=== PATIENT | male | born 1945 | race Caucasian/White ===

== ENCOUNTER 2020-01-27 15:02 | Emergency (ER) | payer OTHER ==
--- OUTSIDE RECORDS SUMMARY | 2020-01-27 15:09 | XMS REPORT ---
:1945 Author Organization eClinicalWorks Care Team Providers Name Role Phone NanceMau Provider Role Unavailable Allergies, Adverse Reactions, Alerts Substance Reaction Event Type N.K.D.A. 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 Problem Constipation, unspecified K59.00 Active constipation type Problem Noncompliance with dietary Z91.11 Active restriction Problem H/O stroke without residual deficits Z86.73 Active Problem Obstructive sleep apnea G47.33 Active Problem Medicare annual wellness visit, Z00.00 Active initial Problem 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 Active Problem Nocturia R35.1 Active Problem RLS (restless legs syndrome) G25.81 Active Assessment Acute non-recurrent maxillary J01.00 Active sinusitis Problem Prediabetes R73.09 Active Problem Benign essential HTN I10 Active Medications Medication Code Code Instructions Start End Status Dosage System Date Date Simvastatin ND 58668562244 40 MG Orally Active 1 tablet Once a day in the evening Losartan ND 38698514185 100 Orally Once Active 1 tablet Potassium a day Requip ND 50437257201 5 MG Orally Active 1 tablet Twice a day Levothyroxine ND 89850205635 88 MCG Orally Active 1 tablet Sodium Once a day on an empty stomach in the morning Zoloft ND 23644417283 100 MG Orally Active 1 tablet Once a day Amoxicillin-Pot ND 58848737495 875-125 MG Sep 23, Oct 03, Active 1 tablet Clavulanate Orally every 12 2019 2019 hrs Celebrex ND 85658157422 200 MG Orally Active 1 capsule Once a day with food Losartan ND 62306507869 100 MG Orally Active 1 tablet Potassium Once a day Results No Known Results Summary Purpose eClinicalWorks Submission
--- OUTSIDE RECORDS SUMMARY | 2020-01-27 15:09 | XMS REPORT ---
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 41287277130 250 MG Orally Oct 04, Oct 09, Active 2 tablet Z-Gelacio Once a day 2018 2018 on the first day, then 1 tablet daily for 4 days Results No Known Results Summary Purpose eClinicalWorks Submission
--- OUTSIDE RECORDS SUMMARY | 2020-01-27 15:10 | XMS REPORT ---
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
--- OUTSIDE RECORDS SUMMARY | 2020-01-27 15:10 | XMS REPORT ---
:1945 Author Organization eClinicalWorks Care Team Providers Name Role Phone NanceMau Provider Role Unavailable Allergies, Adverse Reactions, Alerts Substance Reaction Event Type N.K.D.A. 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 Problem Constipation, unspecified K59.00 Active constipation type Assessment Prediabetes R73.09 Active Assessment H/O stroke without residual deficits Z86.73 Active Problem Noncompliance with dietary Z91.11 Active restriction Assessment RLS (restless legs syndrome) G25.81 Active Problem H/O stroke without residual deficits Z86.73 Active Problem Obstructive sleep apnea G47.33 Active Problem Medicare annual wellness visit, Z00.00 Active initial Problem 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 Active Assessment Hyperlipidemia, mixed E78.2 Active Assessment Hypothyroidism E03.9 Active Assessment Anxiety F41.9 Active Assessment Obstructive sleep apnea G47.33 Active Problem Nocturia R35.1 Active Problem RLS (restless legs syndrome) G25.81 Active Assessment Benign essential HTN I10 Active Medications Medication Code Code Instructions Start End Status Dosage System Date Date Zoloft ND 03405782135 100 MG Orally Active 1 tablet Once a day Requip ND 50649158564 5 MG Orally Active 1 tablet Twice a day Simvastatin ND 83726742557 40 MG Orally Active 1 tablet Once a day in the evening Levothyroxine ND 80689411119 88 MCG Orally Active 1 tablet Sodium Once a day on an empty stomach in the morning Losartan [facility] 09571765980 100 MG Orally Active 1 tablet Potassium Once a day Celebrex [facility] 80468086366 200 MG Orally Active 1 capsule Once a day with food Results No Known Results Summary Purpose eClinicalWorks Submission
--- NOTE | 2020-01-27 16:29 | ER ---
Nurse's Notes [facility] Name: Brijesh Reveles Age: 74 yrs Sex: Male : 1945 Arrival Date: 01/27/2020 Time: 15:05 Bed 4 Private MD: Mau Nance Diagnosis: Toxic effect of venom of bees, accidental (unintentional) Presentation: 01/26 15:15 Chief complaint: Patient states: Bee sting on L upper lip about 30 minutes ago. ca1 Coronavirus screen: The patient has NOT traveled to [place] in the past 14 days. The patient has NOT had contact with known and/or suspected case of Coronavirus. Ebola Screen: Patient negative for fever greater than or equal to 101.5 degrees Fahrenheit, and additional compatible Ebola Virus Disease symptoms Patient denies exposure to infectious person. Patient denies travel to an Ebola-affected area in the 21 days before illness onset. No symptoms or risks identified at this time. Initial Sepsis Screen: Does the patient meet any 2 criteria? No. Patient's initial sepsis screen is negative. Does the patient have a suspected source of infection? Yes:. Risk Assessment: Do you want to hurt yourself or someone else? Patient reports no desire to harm self or others. 15:15 Method Of Arrival: Ambulatory ca1 15:15 Acuity: DIVYA 4 ca1 15:20 Onset: The symptoms/episode began/occurred acutely. Anaphylaxis evaluation, no signs or bp symptoms of anaphylaxis were noted. Triage Assessment: 15:19 General: Appears in no apparent distress. comfortable, Behavior is calm, cooperative, ca1 appropriate for age. Respiratory: Airway is patent Respiratory effort is even, unlabored, Respiratory pattern is regular, symmetrical. Historical: - Allergies: 15:19 No Known Allergies; ca1 - Home Meds: 15:19 Celebrex 200 mg Oral cap 1 cap once daily [Active]; levothyroxine 75 mcg tab 1 tab once ca1 daily [Active]; losartan 100 mg Oral tab 1 tab once daily [Active]; ropinirole 5 mg Oral tab 1 tab twice a day [Active]; simvastatin 40 mg Oral tab 1 tab once daily [Active]; Zoloft 100 mg Oral tab 1 tab once daily [Active]; - PMHx: 15:19 ADD/ADHD; Arthritis; Hyperlipidemia; Hypertension; Hypothyroidism; Depression; ca1 - PSHx: 15:19 hip Replacement L; ca1 - Immunization history:: Adult Immunizations up to date, Last tetanus immunization: up to date Pneumococcal vaccine is up to date, Flu vaccine is up to date. - Social history:: Smoking status: Patient denies any tobacco usage or history of. Screenin:20 Abuse screen: Denies threats or abuse. Denies injuries from another. Nutritional bp screening: No deficits noted. Tuberculosis screening: No symptoms or risk factors identified. Fall Risk None identified. Assessment: 15:19 General: SEE TRIAGE NOTE. Pain: Complains of pain in upper lip. Respiratory: Airway is bp patent Respiratory effort is even, unlabored, Respiratory pattern is regular, symmetrical, Breath sounds are clear bilaterally. 16:45 Reassessment: PT D/C HOME AMBULATORY WITH FAMILY, DX WITH INSECT BITE. bp Vital Signs: 15:15 BP 149 / 68; Pulse 89; Resp 17 S; Temp 97.1(O); Pulse Ox 96% on R/A; Weight 97.52 kg ca1 (R); Height 6 ft. 3 in. (190.50 cm) (R); 16:22 BP 145 / 91; Pulse 86; Resp 16; Pulse Ox 95% ; bp 16:45 BP 132 / 85; Pulse 85; Resp 16; Temp 98; Pulse Ox 96% ; bp 15:15 Body Mass Index 26.87 (97.52 kg, 190.50 cm) ca1 ED Course: 15:05 Patient arrived in ED. mr 15:05 Mau Nance DO is Private Physician. mr 15:17 Triage completed. ca1 15:19 Arm band placed on right wrist. ca1 15:20 Patient has correct armband on for positive identification. Bed in low position. Call bp light in reach. Side rails up X2. Adult w/ patient. 15:51 Ki Garcia MD is Attending Physician. tw4 16:01 Devonte Gagnon, ISMAEL is Primary Nurse. bp 16:27 Mau Nance DO is Referral Physician. tw4 16:46 No provider procedures requiring assistance completed. Patient did not have IV access bp during this emergency room visit. Administered Medications: No medications were administered Outcome: 16:28 Discharge ordered by . tw4 16:46 Discharged to home ambulatory, with family. bp 16:46 Condition: stable 16:46 Discharge instructions given to patient, Instructed on discharge instructions, follow up and referral plans. medication usage, Demonstrated understanding of instructions, follow-up care, medications, Prescriptions given X 1. 16:47 Patient left the ED. bp Signatures: Mitali Sales Brian, RN RN Ki Burkett MD MD tw4 Summer Haley RN RN ca1
[2020-01-27 18:37] VITALS: BP 132/85; TEMP 98; O2SAT 96
--- NOTE | 2020-01-28 16:57 | EDPHYS ---
Physician Documentation [facility] Name: Brijesh Reveles Age: 74 yrs Sex: Male : 1945 Arrival Date: 01/27/2020 Time: 15:05 Bed 4 Private MD: Goyo [facility] ED Physician Ki Garcia HPI: 01/26 19:39 This 74 yrs old Male presents to ER via Ambulatory with complaints of Bee tw4 Sting. 19:39 The patient was bitten on the upper [place] border. Onset: The symptoms/episode tw4 began/occurred just prior to arrival, today. Animal information: Patient/Caregiver unable to provide information related to the animal. Severity of symptoms: At their worst the symptoms were mild, in the emergency department the symptoms are unchanged. The patient has not experienced similar symptoms in the past. Historical: - Allergies: 15:19 No Known Allergies; ca1 - Home Meds: 15:19 Celebrex 200 mg Oral cap 1 cap once daily [Active]; levothyroxine 75 mcg tab 1 tab once ca1 daily [Active]; losartan 100 mg Oral tab 1 tab once daily [Active]; ropinirole 5 mg Oral tab 1 tab twice a day [Active]; simvastatin 40 mg Oral tab 1 tab once daily [Active]; Zoloft 100 mg Oral tab 1 tab once daily [Active]; - PMHx: 15:19 ADD/ADHD; Arthritis; Hyperlipidemia; Hypertension; Hypothyroidism; Depression; ca1 - PSHx: 15:19 hip Replacement L; ca1 - Immunization history:: Adult Immunizations up to date, Last tetanus immunization: up to date Pneumococcal vaccine is up to date, Flu vaccine is up to date. - Social history:: Smoking status: Patient denies any tobacco usage or history of. ROS: 19:39 Constitutional: Negative for fever, chills, and weight loss, Eyes: Negative for injury, tw4 pain, redness, and discharge. Exam: 19:45 Constitutional: This is a well developed, well nourished patient who is awake, alert, tw4 and in no acute distress. Head/Face: Normocephalic, atraumatic. Chest/axilla: Normal chest wall appearance and motion. Nontender with no deformity. No lesions are appreciated. Cardiovascular: Regular rate and rhythm with a normal S1 and S2. No gallops, murmurs, or rubs. Normal PMI, no JVD. No pulse deficits. Respiratory: Lungs have equal breath sounds bilaterally, clear to auscultation and percussion. No rales, rhonchi or wheezes noted. No increased work of breathing, no retractions or nasal flaring. Abdomen/GI: Soft, non-tender, with normal bowel sounds. No distension or tympany. No guarding or rebound. No evidence of tenderness throughout. Back: No spinal tenderness. No costovertebral tenderness. Full range of motion. 19:45 Musculoskeletal/extremity: 19:45 Skin: injury, bite(s), superficial, of the upper [place] border. Vital Signs: 15:15 BP 149 / 68; Pulse 89; Resp 17 S; Temp 97.1(O); Pulse Ox 96% on R/A; Weight 97.52 kg ca1 (R); Height 6 ft. 3 in. (190.50 cm) (R); 16:22 BP 145 / 91; Pulse 86; Resp 16; Pulse Ox 95% ; bp 16:45 BP 132 / 85; Pulse 85; Resp 16; Temp 98; Pulse Ox 96% ; bp 15:15 Body Mass Index 26.87 (97.52 kg, 190.50 cm) ca1 MDM: 15:51 Patient medically screened. tw4 19:47 Differential diagnosis: superficial laceration, tendon injury. Data reviewed: vital tw4 signs, nurses notes. Data interpreted: Pulse oximetry: Interpretation: normal. Test interpretation: by ED physician or midlevel provider: ECG. Counseling: I had a detailed discussion with the patient and/or guardian regarding: the historical points, exam findings, and any diagnostic results supporting the discharge/admit diagnosis. Special discussion: I discussed with the patient/guardian in detail that at this point there is no indication for admission to the hospital. It is understood, however, that if the symptoms persist or worsen the patient needs to return immediately for re-evaluation. 19:48 ED course: mild swelling of upper lip, no oropharyngeal swelling. tw4 Administered Medications: No medications were administered Disposition: 01/27/20 16:28 Discharged to Home. Impression: Toxic effect of venom of bees, accidental (unintentional). - Condition is Stable. - Discharge Instructions: Insect Bite. - Prescriptions for Medrol (Gelacio) 4 mg Oral Tablets, Dose Pack - take 1 tablet by ORAL route as directed - follow package instructions; 1 packet. - Medication Reconciliation Form, Thank You Letter, Antibiotic Education, Prescription Opioid Use form. - Follow up: Mau Nance DO; When: Upon discharge from the Emergency Department; Reason: Recheck today's complaints, Continuance of care, Re-evaluation by your physician. - Problem is new. - Symptoms have improved. Signatures: Devonte Gagnon RN RN Ki Burkett MD MD tw4 Summer Haley RN RN ca1 Corrections: (The following items were deleted from the chart) 16:47 16:28 01/27/2020 16:28 Discharged to Home. Impression: Toxic effect of venom of bees, bp accidental (unintentional). Condition is Stable. Forms are Medication Reconciliation Form, Thank You Letter, Antibiotic Education, Prescription Opioid Use. Follow up: Mau Nance; When: Upon discharge from the Emergency Department; Reason: Recheck today's complaints, Continuance of care, Re-evaluation by your physician. Problem is new. Symptoms have improved. tw4
== END 2020-01-27 16:47 | disposition home or self-care (01) ==
LOC: ER 15:02
DX: S00.561A Insect bite (nonvenomous) of lip, initial encounter (principal); T63.441A Toxic effect of venom of bees, accidental (unintentional), initial encounter; Y92.9 Unspecified place or not applicable; I10 Essential (primary) hypertension; E03.9 Hypothyroidism, unspecified; E78.5 Hyperlipidemia, unspecified; F32.9 Major depressive disorder, single episode, unspecified
CPT/HCPCS: 99282

== ENCOUNTER 2022-02-23 06:25 | Observation (INO) | payer OTHER ==
[2022-02-18 11:43] LABS: Absolute Lymphocytes (CBC) 2.3 K/uL (0.7-4.9); Hematocrit 40.7 % (39.6-49.0); Lymphocytes % 26.5 % (15.3-44.8); MPV 8.7 fL (7.6-11.3); RBC Red Blood Cell Count 4.54 M/uL (4.33-5.43)
[2022-02-18 11:48] LABS: Protime INR 0.96
--- NOTE | 2022-02-18 11:49 | RAD REPORT ---
EXAM DESCRIPTION: Khang Shields (2 Views)02/18/2022 11:06 am CLINICAL HISTORY: Preop for knee surgery/hypertension COMPARISON: 2017 FINDINGS: The lungs appear clear of acute infiltrate. The heart is normal size IMPRESSION: No acute abnormalities displayed
[2022-02-23] MEDS ORDERED: MIDAZOLAM HCL 2 MG/2 ML INJ ONE (06:45)
[2022-02-23] MEDS ORDERED: LIDOCAINE 1% MPF 5 ML VIAL ONE (06:45)
[2022-02-23] MEDS ORDERED: FENTANYL CITR 100 MCG/2 ML ONE (06:45)
[2022-02-23] MEDS ORDERED: BUPIVACAINE 0.25% PF 10 ML VIAL ONE (06:45)
[2022-02-23] MEDS ORDERED: SODIUM BICARB 50 MEQ/50ML VIAL ONE (06:45)
[2022-02-23] MEDS ORDERED: dexAMETHasone 10 MG/ML VIAL ONE ×2 (06:45→08:05)
[2022-02-23] MEDS ORDERED: Ringers Lactate 1,000 ML IV ONE ×2 (06:48→08:58)
[2022-02-23] MEDS ORDERED: CEFAZOLIN/SWI 2gm 2 GM/20 ML SYR ONE (06:48)
[2022-02-23] MEDS ORDERED: GABAPENTIN 100 MG CAP ONE (07:03)
[2022-02-23] MEDS ORDERED: CELECOXIB 100 MG CAPSULE ONE ×2 (07:03→07:05)
[2022-02-23] MEDS ORDERED: SCOPOLAMINE HYDROBROMIDE PATCH TD ONE (07:03)
[2022-02-23] MEDS ORDERED: Oxycodone HCl/Acetaminophen 1 TAB TAB ONE (07:04)
[2022-02-23] MEDS ORDERED: ACETAMINOPHEN 500 MG TAB ONE (07:04)
[2022-02-23] MEDS ORDERED: ONDANSETRON 4 MG/2 ML VIAL ONE (07:11)
[2022-02-23] MEDS ORDERED: TRANEXAMIC ACID 1,000 MG in NA CHLORIDE 0.9% 50 ML IV SCH (08:00)
[2022-02-23] MEDS ORDERED: HYDROMORPHONE HCL 1 MG/ML INJ ONE (08:01)
[2022-02-23] MEDS ORDERED: KETAMINE HCL 500 MG/5 ML VIAL ONE (08:05)
[2022-02-23] MEDS ORDERED: LIDOCAINE 2% MPF 5 ML VIAL ONE (08:05)
[2022-02-23] MEDS ORDERED: KETOROLAC 30 MG/ML INJ ONE (08:05)
[2022-02-23] MEDS ORDERED: propofoL 200 MG/20 ML VIAL IV ONE ×2 (08:05→09:08)
[2022-02-23] MEDS ORDERED: EPHEDRINE SULF 50 MG/ML VIAL ONE (09:15)
[2022-02-23] MEDS ORDERED: Phenylephrine HCl 10 MG/ML 1 ML VIAL ONE (10:07)
[2022-02-23] MEDS ORDERED: ONDANSETRON 4 MG/2 ML VIAL IV PRN (11:25)
[2022-02-23] MEDS ORDERED: DOCUSATE NA 100 MG CAP PO PRN (11:25)
--- NOTE | 2022-02-23 11:25 | P.BOP ---
Preoperative diagnosis: left knee osteoarthritis Postoperative diagnosis: same Primary procedure: left total knee arthroplasty Mud Worker: NONE,NONE Estimated blood loss: 30 cc Specimen: left knee bone remnants Findings: see dictation Anesthesia: General Complications: None Drain(s): Urinary catheter Implants: Mike Persona 12 PS femur, G tibia tray, 35 patella, 10 mm PS poly Fluids & blood products: per anesthesia record; TT: 99 mins @ 300 mmHg Transferred to: Recovery Room Condition: Good
[2022-02-23] MEDS ORDERED: NA CHLORIDE 0.9% 1,000 ML ONE (11:40)
--- OUTSIDE RECORDS SUMMARY | 2022-02-23 12:09 | XMS REPORT | Continuity of Care Document ---
:1945 Author Organization [facility] t Address [address] [place] [address] Care Team Providers Name Role Phone Emil Nance Attending Clinician Unavailable Problems This patient has no known problems. Allergies, Adverse Reactions, Alerts This patient has no known allergies or adverse reactions. Medications Ordered Filled Start Stop Current Ordering Indication Dosage Frequency Signature Comments Components Source Medication Medication Date Date Medication? Clinician (SIG) Name Name Nasacort Nasacort Yes Mau [address] [facility] Allergy Allergy 07-28 Nance each [facility] 24[facility]:00: nostril [facility] Zoloft Zoloft Yes Mau [facility] Requip Requip Yes Mau 1 tablet [facility] Simvastatin Simvastatin Yes Mau [address] [facility] Nance in the [facility] evening [facility] Levothyroxi Levothyroxi Yes Mau [address] [facility] ne Sodium ne Sodium Nance on an [facility] - empty [facility] stomach in l the [facility] Losartan Losartan Yes Mau [address] Potassium Potassium [facility] Celebrex Celebrex Yes Mau [address] [facility] Nance with food [facility] Immunizations Ordered Filled Immunization Date Status Comments Sourc e Immunization Name Name FluAD FluAD 2019-08-[address] [facility] 00:[facility]00 [facility] PNEUMAVAX 23 PNEUMAVAX 23 2019-03-[address] [facility] - 00[facility]00 [facility] Procedures This patient has no known procedures. Encounters Start End Encounter Admission Attending Care Care Encounter Source Date/Time Date/Time Type Type Clinicians Facility Department ID 2022-02-10 Outpatient Nance, [facility] [id number] [facility] 08:34:01 Mau [id number] [facility] 2022-02-09 Out[facility] Nance, [facility] [id number] [facility] 11:55:00 Mau [id number] [facility] 2021-12-28 Outpatient Nance, [facility] [id number] 07:57:01 [facility] 2021-12-22 Outpatient Nance, [facility] [id number] 14:14:40 Mau [id number] [facility] 2021-12-22 Outpatient Nance, [facility] [id number] 11:32:10 Mau [id number] [facility] 2021-12-22 Outpatient Nance, [facility] [id number] [facility] 11:31:03 Mau [id number] [facility] 2021-12-22 Outpatient Nance, [facility] [id number] 11:17:40 Mau [id number] [facility] 2021-12-22 Outpatient Nance, [facility] [id number] 11:17:19 Mau [id number] [facility] 2021-12-22 Outpatient Nance, [facility] [id number] 11:16:49 Mau [id number] [facility] 2022-02-21 2022-02-21 ambulatory [facility] [id number] [facility] 2022-02-10 2022-02-10 ambulatory [facility] [id number] [facility] 2022-01-31 2022-01-31 ambulatory [facility] [id number] [facility] 2021-12-28 2021-12-28 ambulatory [facility] [id number] [facility] 2021-10-19 2021-10-19 ambulatory [facility] [id number] [facility] 2020-08-24 2020-08-24 Outpatient [facility] [id number] [facility] 2020-07-28 2020-07-28 [facility] [id number] [facility] 09:20:00 09:20:00 t [facility] Medicine l Medicine Outpati ent Clinics 2020-06-15 2020-06-15 [facility] [id number] [address] 15:00:00 15:00:00 t [facility] Medicine l Medicine Outpati ent Clinics 2020-06-09 2020-06-09 [facility] [id number] 08:00:00 08:00:00 t Doppelganger [facility] Medicine l Medicine Outpati ent Clinics 2020-06-08 2020-06-08 [facility] [id number] [address] 08:31:00 08:31:00 t [facility] Medicine l Medicine Outpati ent Clinics 2020-04-13 2020-04-13 [facility] [id number] [facility] 11:20:00 11:20:00 t Doppelganger [facility] Medicine l Medicine Outpati ent Clinics 2020-04-13 2020-04-13 [facility] [id number] 08:41:00 08:41:00 t Doppelganger [facility] l Medicine Outpati ent Clinics 2020-03-06 2020-03-06 [facility] [id number] 09:45:00 09:45:00 [place] [employer] [place] - [facility] l Medicine Outpati ent Clinics 2019-12-05 2019-12-05 [facility] [id number] [address] 08:15:00 08:15:00 [place] [employer] [place] - [facility] l Medicine Outpati ent Clinics 2019-11-28 2019-11-28 [facility] [id number] [address] 16:06:00 16:06:00 t [place] [employer] [place] - Drive [facility] l Medicine Outpati ent Clinics 2019-10-04 2019-10-04 [facility] [id number] 09:33:00 09:33:00 t [place] [employer] [place] - Drive [facility] Medicine Outpati ent Clinics 2019-09-23 2019-09-23 [facility] [id number] 15:00:00 15:00:00 t [place] [employer] [place] - Drive [facility] Medicine l Medicine Outpati ent Clinics 2019-08-20 2019-08-20 [facility] [id number] 09:15:00 09:15:00 t [place] [employer] - Drive [facility] l Medicine Outpati ent Clinics 2019-06-05 2019-06-05 [facility] [id number] 11:15:00 11:15:00 t [place] [employer] [place] - Drive [facility] Medicine l Medicine Outpati ent Clinics 2019-05-21 2019-05-21 [facility] [id number] 08:45:00 08:45:00 t [place] [employer] [place] - Drive [facility] l Medicine Outpati ent Clinics 2019-03-21 2019-03-21 [facility] [id number] [facility] 13:00:00 13:00:00 t [place] [employer] [place] - Drive [facility] l Medicine Outpati ent Clinics 2019-02-13 2019-02-13 [facility] [id number] [facility] 13:00:00 13:00:00 t [place] [facility] Medicine Outpati ent Clinics Results This patient has no known results.
--- NOTE | 2022-02-23 12:10 | RAD REPORT ---
EXAM DESCRIPTION: RAD - Knee Left 2 View - 02/23/2022 12:03 pm CLINICAL HISTORY: Post Op COMPARISON: No comparisons FINDINGS/IMPRESSION: Status post left total knee arthroplasty. No immediate hardware complications. No fractures seen. Expected postoperative changes.
[2022-02-23] MEDS ORDERED: MORPHINE 2 MG/ML SYR IV PRN (12:14)
[2022-02-23 12:18] LABS: Hematocrit 39.6 % (39.6-49.0)
[2022-02-23 12:49] VITALS: BMI 32.5
[2022-02-23] MEDS: TRAMADOL HCL 50 MG TAB PO PRN ×2 (14:32→21:47)
[2022-02-23] MEDS ORDERED: CEFAZOLIN 2 GM in NA CHLORIDE 0.9% 100 ML IVPB SCH ×4 (17:00)
[2022-02-23] MEDS: CEFAZOLIN/SWI 2gm 2 GM/20 ML SYR IVP SCH (17:18)
[2022-02-23] MEDS ORDERED: ATORVASTATIN 40 MG TAB PO SCH (21:00)
--- NOTE | 2022-02-23 21:03 | P.OP ---
Primary procedure: left total knee arthroplasty Anesthesia: general Estimated blood loss: 30 cc Specimen: left knee bone remnants Findings: see dictation Operative Technique: Indication For Procedure: Brijesh is a 76 year-old male presenting to my clinic with signs, symptoms and x-ray findings consistent with severe left knee osteoarthritis. I discussed with the patient at length risks and benefits associated with operative and nonoperative treatment. He had failed conservative treatment measures and had significant difficulties with ADLs secondary to her pain. We discussed operative treatment and elected to proceed with left total knee arthroplasty. He has history of ligamentous injury and instability and we will proceed with a PS TKA. He expressed understanding and elected to proceed with operative treatment. Description Of Procedure: After informed consent was obtained, the patient was identified in the preoperative holding area. The left lower extremity was marked. The patient was then taken to the PACU where he underwent a left lower extremity adductor canal block performed by Anesthesia. He was then taken to the operating room, transferred to the operating table in supine fashion, and placed under general anesthesia. The left lower extremity was then prepped and draped in usual sterile fashion. A time-out was initiated. The correct patient and procedure were confirmed and identified. The patient did receive his preoperative prophylactic antibiotics. The left lower extremity was then exsanguinated and tourniquet was inflated to 300 mmHg. Approximately 15 cm longitudinal incision was made centered over the anterior aspect of the left knee. Dissection was then taken to the extensor mechanism and a medial parapatellar arthrotomy was performed. The patella was everted and dislocated laterally and the knee was flexed in the fat pad. Medial and lateral meniscus were all excised exposing the distal femur. The patient had past ACL and PCL injury and was deficient of the two ligaments. Excess hypertrophic synovium was also excised within the suprapatellar pouch. The patient had an MRI of his left knee preoperatively for surgical planning and creation of cutting blocks. The cutting block was then placed over the distal femur and pins were then placed. The distal femoral cutting block was then placed over the pins. Knee joint was then used to ensure proper depth cut and the distal femur was then cut. The chamfer cutting guide was then placed over the distal end of the femur. Anterior, posterior cuts as well as anterior and posterior chamfer cuts were then made again confirming proper depth of the cut using an Oscar wing. Excess bone remnants were then sent to pathology for further evaluation. Next the trial implant was placed and the box was cut for the PS femoral trial components. Next, attention was taken to the proximal tibia. A tibial jig and tibial cutting block was then placed on proximal aspect of the left tibia and locked into position. Pins were then placed and alignment guide was then used to confirm proper alignment of the cut and then coronal and sagittal planes. Once this was confirmed, the cutting jig was placed over the pins and the proximal tibia was cut. Sizing trays were then selected and size 10 mm spacer was used and there was good overall balance in flexion and extension. Next, the trial implants were then placed using the size 12 standard PS femur and a size G tibia with an 10 mm PS poly. There was overall good range of motion and good stability. The trial implants were then removed. This improved the overall stability of the knee and components. The wound was then irrigated thoroughly with normal saline and the knee was then injected with 30 cc of 0.5% Marcaine both in the posterior capsule and medial/lateral gutters as well as quadriceps tendon and periosteum. The tibia was then punched. The femur was drilled. The cement was then prepared on the back table. Cement was then placed first on the tibial surface followed by size H tibia. Excess cement was removed with [place] elevators. Size 12 standard PS femur was then placed on the distal femur after cement was placed on the distal femur. Excess cement was then removed and a size 10 mm PS trial poly was then placed. The knee was held in extension as the cement hardened. Undersurface of the patella was prepared debriding osteophytes using rongeurs as well as osteophytes.. Cement was placed on the undersurface of the patella after it was cut and a size 35 patella was placed. Once the cement was hardened, the knee was ranged, there was good overall stability both in flexion, extension and as well as stability with varus and valgus stresses. Trial poly was then removed and a size 10 mm PS poly was then placed and locked into position. The knee was then ranged again. There was good overall range of motion both for flexion and extension with good stability. The wound was then irrigated again thoroughly with normal saline using pulse lavage. Tourniquet was let down. Hemostasis was achieved using Bovie electrocautery. Extensor mechanism was then approximated using a #1 Vicryl both in interrupted and running fashion. The fascia was then approximated using 0 Vicryl. Subcutaneous tissue was approximated with a 2-0 Vicryl. Skin was approximated using lj. Sterile dressings were applied. The patient was awakened and transferred back in stable condition Complications: None Drain(s): Urinary catheter Implants: Mike Persona 12 PS femur, G tibia, 35 patella, 10 mm PS poly Fluids & blood products: per anesthesia record Transferred to: Recovery Room Condition: Good
[2022-02-23] MEDS: ROPINIROLE HCL 1 MG TAB PO SCH (21:47)
[2022-02-24] MEDS: CEFAZOLIN/SWI 2gm 2 GM/20 ML SYR IVP SCH ×2 (00:08→09:15)
[2022-02-24] MEDS: HYDROCODONE/APAP 7.5/325 MG TAB PO PRN ×2 (01:15→12:33)
[2022-02-24 02:38] VITALS: O2SAT 90
[2022-02-24] MEDS ORDERED: LEVOTHYROXINE SOD 0.088 MG TAB PO SCH (06:00)
[2022-02-24] MEDS ORDERED: ENOXAPARIN 30 MG/0.3 ML SQ SCH (06:00)
[2022-02-24 06:10] LABS: Hematocrit 36.2 % (39.6-49.0)
[2022-02-24] MEDS ORDERED: CLOPIDOGREL 75 MG TABLET PO SCH (09:00)
[2022-02-24] MEDS ORDERED: TAMSULOSIN 0.4 MG SR CAP PO SCH (09:00)
[2022-02-24] MEDS ORDERED: LOSARTAN POTASSIUM 50 MG TABLET PO SCH (09:00)
[2022-02-24] MEDS ORDERED: SERTRALINE HCL 100 MG TAB PO SCH (09:00)
[2022-02-24] MEDS: TRAMADOL HCL 50 MG TAB PO PRN (09:13)
[2022-02-24] MEDS: ROPINIROLE HCL 1 MG TAB PO SCH (09:19)
[2022-02-24 12:20] VITALS: BP 128/64; TEMP 97.4
== END 2022-02-24 13:34 | disposition home health service (06) ==
LOC: OR 06:25 → 2ND 11:26
PROVIDERS: ADMIT Orthopaedic Surgery Sports Medicine; ATTEND Orthopaedic Surgery Sports Medicine
PROC: 0SRD069 Replacement of Left Knee Joint with Oxidized Zirconium on Polyethylene Synthetic Substitute, Cemented, Open Approach (ICD-10-PCS; principal; 2022-02-23 08:00)
DX: M17.12 Unilateral primary osteoarthritis, left knee (principal); I10 Essential (primary) hypertension; E03.9 Hypothyroidism, unspecified; E78.2 Mixed hyperlipidemia; R73.03 Prediabetes; G47.33 Obstructive sleep apnea (adult) (pediatric); G25.81 Restless legs syndrome; F41.9 Anxiety disorder, unspecified; Z79.899 Other long term (current) drug therapy; Z86.73 Personal history of transient ischemic attack (TIA), and cerebral infarction without residual deficits; Z96.642 Presence of left artificial hip joint; Z82.49 Family history of ischemic heart disease and other diseases of the circulatory system; Z80.0 Family history of malignant neoplasm of digestive organs
CPT/HCPCS: 85025; 80048; 36415 ×3; 85610; 88304; 88311; 85730; 85018 ×2; 85014 ×2; 71046; 73560; 97110 ×2; 97116 ×3; 97139; 97161; 97530 ×2; 94010; 27447; J2704; J2370; J1650; J2250; J3010; J1100 ×2; J1170; J0690 ×2; G0378 ×3; J7120 ×2; J7030; J2405; G0379; 88305

== ENCOUNTER 2022-07-17 04:16 | Observation (INO) | payer OTHER ==
--- OUTSIDE RECORDS SUMMARY | 2022-07-17 04:21 | XMS REPORT | Continuity of Care Document ---
:1945 Author Organization [facility] t Address [address] [place] [address] [address] [place] [address] Care Team Providers Name Role Phone Pcp, Patient Does Not Have A Primary Care Physician [id number] Mau Nance Attending Clinician Unavailable JEANNETTE DENSON Attending Clinician Unavailable Shae Liao DO Attending Clinician Jeannette Denson MD Attending Clinician Payers Payer Name Policy Type Policy Number Effective Date Expiration Date Robel [employer] INDE[employer]ITY [id number] 2018 00:00:00 MEDICARE PART A [id number] 2012 \\T\\ B 00:00:00 Problems Condition Condition Condition Status Onset Resolution Last Treating Co mments Source Name Details Category Date Date Treatment Clinician Date No known No known Disease Unive rs active active ity of problems problems [facility] Allergies, Adverse Reactions, Alerts Allergy Allergy Status Severity Reaction(s) Onset Inactive Treating Comm ents Source Name Type Date Date Clinician NO KNOWN Drug Active Univers ALLERGIE Class ity of S [facility] Social History Social Habit Start Date Stop Date Quantity Comments Source Exposure to 2022-07-06 2022-07-16 Not sure [facility] SARS-CoV-2 (event) 00:00:00 22:33:00 Medica l Branch Sex Ass[birth year] [facility] 00:00:00 00:00:00 Medical Branch Smoking Status Start Date Stop Date Source Tobacco [facility] Medications Ordered Filled Start Stop Current Ordering Indication Dosage Frequency Signature Comments Components Source Medication Medication Date Date Medication? Clinician (SIG) Name Name rOPINIRole Yes .5mg Take 0.5 Uni vers 0.5 mg 8-20 mg by ity of tablet 22:56: mouth in [place] 16 the Medical morning Branch and 0.5 mg in the evening. atorvastati Yes 40mg Take 40 mg Univers n 40 mg 8-20 by mouth ity of tablet 22:56: in the [place] [address] morning. Medical Branch tamsulosin Yes 2.4mg Take 2.4 Un elizabeth HCl 8-20 mg by ity of (TAMSULOSIN 22:56: mouth [place] ORAL) 16 daily. Medical Branch SERTraline Yes 100mg Take 100 Un elizabeth 100 mg 8-20 mg by ity of tablet 22:56: mouth in [place] 16 the Medical morning. Branch losartan Yes 100mg Take 100 Univ ers 100 mg 8-20 mg by ity of tablet 22:56: mouth in [place] [address] the Medical morning. Branch levothyroxi Yes .088mg Take 0.088 Univers ne sodium 8-20 mg by ity of (LEVOTHYROX 22:56: mouth [place] [facility] ORAL) 16 daily. Medical Branch Nasacort Nasacort Yes Mau 1 spray in Common Allergy Allergy 07-28 Nance each [facility] 24HR 24HR 00:00: nostril - [facility] 00 [facility] Zoloft Zoloft Yes Mau 1 tablet Commo n Nance Spirit [facility] Requip Requip Yes Mau 1 tablet Commo n Nance [facility] Simvastatin Simvastatin Yes Mau 1 tablet Common Nance in the Spirit evening - [facility] Levothyroxi Levothyroxi Yes Mau 1 tablet Common ne Sodium ne Sodium Nance on an Spi rit empty - [facility] stomach in [facility] Losartan Losartan Yes Mau 1 tablet C ommon Potassium Potassium Nance Spir it - [facility] Celebrex Celebrex Yes Mau 1 capsule Common Nance with food Spirit [facility] Immunizations Ordered Immunization Filled Immunization Date Status Commen ts Source Name Name Fran Peters 2019-08-20 Completed Common [facility] 00:00:00 - [facility] PNEUMAVAX 23 PNEUMAVAX 23 2019-03-21 Completed Common Spi rit 00:00:00 [facility] Vital Signs Vital Name Observation Time Observation Value Comments Source Systolic blood 2022-07-17 05:00:00 161 mm[Hg] Univer [facility] Diastolic blood 2022-07-17 05:00:00 97 mm[Hg] [facility] Heart rate 2022-07-17 05:00:00 89 /min [facility] Respiratory rate 2022-07-17 05:00:00 14 /min [facility] Oxygen saturation in 2022-07-17 05:00:00 94 /min [facility] blood by [facility] Pulse oximetry Branch Body temperature 2022-07-17 03:36:00 36.5 Yun [facility] Body height 2022-07-17 03:36:00 190.5 cm [facility] Body weight 2022-07-17 03:36:00 117.935 kg [facility] BMI 2022-07-17 03:36:00 32.50 kg/m2 [facility] Procedures Procedure Date / Time Performing Clinician Source Performed EKG-12 LEAD 2022-07-17 05:11:59 Jeannette Denson [facility] TROPONIN I 2022-07-17 03:41:00 Jeannette Denson [facility] THYROID STIMULATING 2022-07-17 03:41:00 Jeannette Denson [facility] HORMONE [facility] COMP. METABOLIC PANEL 2022-07-17 03:41:00 Jeannette Denson [facility] ([id number]) [facility] CBC WITH DIFF 2022-07-17 03:41:00 Jeannette Denson [facility] URINALYSIS 2022-07-17 03:41:00 Jeannette Denson [facility] LACTIC ACID WHOLE BLOOD 2022-07-17 03:41:00 Jeannette Denson [facility] COVID-19 (ID NOW RAPID 2022-07-17 03:41:00 Jaennette Denson [facility] TESTING) Medical Branch Encounters Start End Encounter Admission Attending Care Care Encounter Source Date/Time Date/Time Type Type Clinicians Facility Department ID 2022-07-08 Outpatient Nance, STLMLC STLMLC [id number] Common 08:05:00 Mau [facility] 2022-04-14 Outpatient Nance, STLMLC STLMLC [id number] Common 12:49:00 Mau [facility] 2022-02-25 Outpatient Nance, STLMLC STLMLC [id number] Common 12:41:00 Mau [facility] 2022-02-10 Outpatient Nance, STLMLC STLMLC [id number] Common 08:34:01 Mau [facility] 2022-02-09 Outpatient Nance, STLMLC STLMLC [id number] Common 11:55:00 Mau [facility] 2021-12-28 Outpatient Nance, STLMLC STLMLC [id number] Common 07:57:01 Mau [facility] 2021-12-22 Outpatient Nance, STLMLC STLMLC [id number] Common 14:14:40 Mau [id number] [facility] 2021-12-22 Outpatient Nance, STLMLC STLMLC [id number] Common 11:32:10 Mau [id number] [facility] 2021-12-22 Outpatient Nance, STLMLC STLMLC [id number] Common 11:31:03 Mau [id number] [facility] 2021-12-22 Outpatient Nance, STLMLC STLMLC [id number] Common 11:17:40 Mau [id number] [facility] 2021-12-22 Outpatient Nance, STLMLC STLMLC [id number] Common 11:17:19 Mau [id number] [facility] 2021-12-22 Outpatient Nance, STLMLC STLMLC [id number] Common 11:16:49 [facility] [id number] [facility] 2022-07-16 2022-07-17 Emergency X JARETT IASHARAN ERT [id number] Univers 22:39:00 00:22:00 JEANNETTE segovia [facility] 2022-07-16 2022-07-17 Emergency Shae Liao Tod [facility] [id number] Univers 22:39:00 00:22:00 Jeannette Denson [place] [id number] luca [facility] [id number] [facility] [id number] 2022-07-08 2022-07-08 ambulatory STLMLC STLMLC [id number] Common 00:00:00 00:00:00 [facility] 2022-06-07 2022-06-07 ambulatory STLMLC STLMLC [id number] Common 00:00:00 00:00:00 [facility] 2022-04-11 2022-04-11 ambulatory STLMLC STLMLC [id number] Common 00:00:00 00:00:00 [facility] 2022-03-10 2022-03-10 ambulatory STLMLC STLMLC [id number] Common 00:00:00 00:00:00 [facility] 2022-03-10 2022-03-10 ambulatory STLMLC STLMLC [id number] Common 00:00:00 00:00:00 [facility] 2022-02-28 2022-02-28 ambulatory STLMLC STLMLC [id number] Common 00:00:00 00:00:00 [facility] 2022-02-24 2022-02-24 ambulatory STLMLC STLMLC [id number] Common 00:00:00 00:00:00 [facility] 2022-02-21 2022-02-21 ambulatory STLMLC STLMLC [id number] Common 00:00:00 00:00:00 [facility] 2022-02-10 2022-02-10 ambulatory STLMLC STLMLC [id number] Common 00:00:00 00:00:00 [facility] 2022-01-31 2022-01-31 ambulatory STLMLC STLMLC [id number] Common 00:00:00 00:00:00 [facility] 2021-12-28 2021-12-28 ambulatory STLMLC STLMLC [id number] Common 00:00:00 00:00:00 [facility] 2021-10-19 2021-10-19 ambulatory STLMLC STLMLC [id number] Common 00:00:00 00:00:00 [facility] 2020-08-24 2020-08-24 Outpatient STLMLC STLMLC [id number] Common 00:00:00 00:00:00 [facility] 2020-07-28 2020-07-28 [facility] [id number] Common 09:20:00 09:20:00 t [employer] [facility] [address] [facility] 2020-06-15 2020-06-15 [facility] [id number] Common 15:00:00 15:00:00 t [employer] [facility] it Drive [facility] 2020-06-09 2020-06-09 [facility] [id number] Common 08:00:00 08:00:00 t [place] [employer] [facility] [address] [facility] 2020-06-08 2020-06-08 [facility] [id number] Common 08:31:00 08:31:00 t [employer] [facility] it Drive [facility] 2020-04-13 2020-04-13 [facility] [id number] Common 11:20:00 11:20:00 t [place] [employer] [facility] it [address] [facility] 2020-04-13 2020-04-13 [facility] [id number] Common 08:41:00 08:41:[address] [facility] 2020-03-06 2020-03-06 [facility] [id number] Common 09:45:00 09:45:[address] [facility] 2019-12-05 2019-12-05 [facility] [id number] Common 08:15:00 08:15:[address] [facility] 2019-11-28 2019-11-28 [facility] [id number] Common 16:06:00 16:06:[address] [facility] 2019-10-04 2019-10-04 [facility] [id number] Common 09:33:00 09:33:[address] [facility] 2019-09-23 2019-09-23 [facility] [id number] Common 15:00:00 15:00:[address] [facility] 2019-08-20 2019-08-20 [facility] [id number] Common 09:15:00 09:15:[address] [facility] 2019-06-05 2019-06-05 [facility] [id number] Common 11:15:00 11:15:[address] [facility] 2019-05-21 2019-05-21 [facility] [id number] Common 08:45:00 08:45:[address] [facility] 2019-03-21 2019-03-21 [facility] [id number] Common 13:00:00 13:00:[address] [facility] 2019-02-13 2019-02-13 [facility] [id number] Common 13:00:00 13:00:[address] [facility] Results Test Description Test Time Test Comments Results Result Comments Source THYROID STIMULATING HORMONE 2022-07-17 05:06:15 Test Item Value Reference Range Interpretation Comme nts TSH (test code = 7647101109) See_Comment H [Automated message] The system which generated this result transmitted ref erence range: 0.45 - 4.70 mIU /L. The reference range was not u sed to interpret this result as normal/abnormal. Lab Interpretation (test code Abnormal = 91151-6) [facility] [id number] 04:47:32 Test Item Value Reference Interpretation Comments Range TROPONIN I (test 0.005 ng/mL See_Comment [Automated code = [id number]) message] The system which generated this result transmitted reference range : <=0.034. The reference range was not used to interpret this result as normal/abnormal . BUCK (test code = Reference (Normal) BUCK) Range (defined by the 99th percentile reference limit): <= 0.034 ng/mL Note: Cardiac troponin begins to rise 3-4 hours after the onset of ischemia. Repeat in 4-6 hours if the sample was drawn within 3-4 hours of the onset of the symptom and found normal. Diagnosis of myocardial injury is made with acute changes in cTn concentrations with at least one serial sample above the 99th percentile upper reference limit (URL), taken together with the patient's clinical presentation. Biotin has been reported to cause a negative bias, interpret results relative to patient's use of biotin. Lab Interpretation Normal (test code = 27485-9) [facility] MET[facility]OLIC PANEL ([id number])2022-07-17 04:35:55 Test Item Value Reference Range Interpretation Comments NA (test code = 140 mmol/L 135-145 5219711471) K (test code = 4.3 mmol/L 3.5-5 1638148395) CL (test code = 110 mmol/L 98-108 H 3692955101) CO2 TOTAL (test code = 22 mmol/L 23-31 L 7272942892) AGAP (test code = 2-16 3617831524) BUN (test code = 26 mg/dL 7-23 H 4432576577) GLUCOSE (test code = 111 mg/dL 70-110 H 4414006828) CREATININE (test code = 1.15 mg/dL 0.6-1.25 2127991706) TOTAL BILI (test code = 0.2 mg/dL 0.1-1.3 7219202852) CALCIUM (test code = 8.9 mg/dL 8.6-10.6 6589987033) T PROTEIN (test code = 6.2 g/dL 6.3-8.2 L 3985516038) ALBUMIN (test code = 4.2 g/dL 3.5-5 2948606863) ALK PHOS (test code = 94 U/L 34-122 8409985755) ALTv (test code = 20 U/L 5-50 2-6) AST(SGOT) (test code = 24 U/L 13-40 7051268620) eGFR (test code = mL/min/1.73m2 1805729471) BUCK (test code = BUCK) Association of Glomerular Filtration Rate (GFR) and Staging of Kidney Disease* + --+ --+ ------+| GFR (mL/min/1.73 m2) ?| With Kidney Damage ?| ?Without Kidney Damage+ --------+ --------+ +| ?>90 ?| ?Stage one ?| ? Normal ?+ ---+ ---+ -------+| ?60-89 ?| ?Stage two ?| ? Decreased GFR ? + --+ --+ ------+| ?30-59 ?| ?Stage three ?| ? Stage three ? + --+ --+ ------+| ?15-29 ?| ?Stage four ? | ? Stage four ?+ ---+ ---+ -------+| ?<15 (or dialysis) ? ?| ?Stage five ? | ? Stage five ?+ ---+ ---+ -------+ *Each stage assumes the associated GFR level has been in effect for at least three months. ?Stages 1 to 5, with or without kidney disease, indicate chronic kidney disease. Notes: Determination of stages one and two (with eGFR >59mL/min/1.73 m2) requires estimation of kidney damage for at least three months as defined by structural or functional abnormalities of the kidney, manifested by either:Pathological abnormalities or Markers of kidney damage (including abnormalities in the composition of the blood or urine or abnormalities in imaging tests). Lab Interpretation Abnormal (test code = 14450-6) [facility] WITH [id number] 03:55:33 Test Item Value Reference Range Interpretation Comments WBC (test code = See_Comment H [Automated 5890-2) message] The sy stem which generated this result transmitted reference range : 4.20 - 10.70 10*3/?L. The reference range was not used to interpret this result as normal/abnormal . RBC (test code = See_Comment [Automated 789-8) message] The sy stem which generated this result transmitted reference range : 4.26 - 5.52 10*6/?L. The reference range was not used to interpret this result as normal/abnormal . HGB (test code = 14.5 g/dL 12.2-16.4 718-7) HCT (test code = 43.1 % 38.4-49.3 4544-3) MCV (test code = 87.6 fL 81.7-95.6 787-2) MCH (test code = 29.5 pg 26.1-32.7 785-6) MCHC (test code = 33.6 g/dL 31.2-35 786-4) RDW-SD (test code = 43.9 fL 38.5-51.6 04032-1) RDW-CV (test code = 13.7 % 12.1-15.4 788-0) PLT (test code = See_Comment [Automated 777-3) message] The sy stem which generated this result transmitted reference range : 150 - 328 10*3/ ?L. The reference r olena was not used to interpret this result as normal/abnormal . MPV (test code = 10.0 fL 9.8-13 02181-3) NRBC/100 WBC (test See_Comment [Automat ed code = 9608578641) message] The system which generated this result transmitted reference range : 0.0 - 10.0 /100 WBCs. The refer ence range was not u sed to interpret th is result as normal/abnormal . NRBC x10^3 (test code See_Comment [Auto mated = 3216383919) message] The s ystem which generated this result transmitted reference range : 10*3/?L. The reference range was not used to interpret this result as normal/abnormal . GRAN MAT (NEUT) % 61.0 % (test code = 770-8) IMM GRAN % (test code 0.80 % = 0635900121) LYMPH % (test code = 25.1 % 736-9) MONO % (test code = 8.0 % 5905-5) EOS % (test code = 4.4 % 713-8) BASO % (test code = 0.7 % 706-2) GRAN MAT x10^3(ANC) 6.94 10*3/uL 1.99-6.95 (test code = 5520377657) IMM GRAN x10^3 (test 0.09 10*3/uL 0-0.06 H code = 0146657011) LYMPH x10^3 (test code 2.85 10*3/uL 1.09-3.23 = 731-0) MONO x10^3 (test code 0.91 10*3/uL 0.36-1.02 = 742-7) EOS x10^3 (test code = 0.50 10*3/uL 0.06-0.53 711-2) BASO x10^3 (test code 0.08 10*3/uL 0.01-0.09 = 704-7) Lab Interpretation Abnormal (test code = 29534-4) [facility]"
[2022-07-17] MEDS ORDERED: NA CHLORIDE 0.9% 1,000 ML ONE (04:48)
[2022-07-17] MEDS ORDERED: NA CHLORIDE 0.9% 500 ML ONE (04:48)
--- NOTE | 2022-07-17 05:17 | EDPHYS ---
Physician Documentation [facility] Name: Brijesh Reveles Age: 77 yrs Sex: Male : 1945 Arrival Date: 07/17/2022 Time: 04:19 Bed 19 Private MD: ED Physician Greg Tariq HPI: 07/17 04:35 This 77 yrs old Male presents to ER via EMS with complaints of syncope. kdr 04:35 Patient states that he had gotten up to the bathroom this morning and while in the kdr bathroom, he collapsed to the ground. This is the second time today that this is happened (last 24 hours). Patient had an earlier episode at home. That time he had called his to the bedroom stating that he did not feel well. He then attempted to stand up and fell backward into the bed. He did have to did not have any injury at that time. EMS was called and he was transported to [facility] for evaluation. He was subsequently released to follow-up with that physician. From review of the laboratory data, everything was normal except for his thyroid was 7.24. This morning he again became lightheaded and eased himself to the ground before passing out perhaps 30 to 60 seconds. Since regaining consciousness, he has been at his baseline without any complaints. On initial examination he has no focal complaint. States that the night prior he did not get any sleep due to his wearing sleep apnea problem. Currently has no focal complaint or concern for injury. Onset: The symptoms/episode began/occurred acutely, suddenly. Severity of symptoms: At their worst the symptoms were. The patient has experienced similar episodes in the past, multiple times. The patient has been recently seen by a physician:. Historical: - Allergies: 04:33 No Known Allergies; ll3 - PMHx: 04:33 ADD/ADHD; Arthritis; Depression; Hyperlipidemia; Hypertension; Hypothyroidism; ll3 - Immunization history:: Client reports receiving the 2nd dose of the Covid vaccine. - Social history:: Smoking status: Patient denies any tobacco usage or history of. ROS: 04:35 Constitutional: Negative for fever, chills, and weight loss, Eyes: Negative for injury, kdr pain, redness, and discharge, ENT: Negative for injury, pain, and discharge, Neck: Negative for injury, pain, and swelling, Cardiovascular: Negative for chest pain, palpitations, and edema, Respiratory: Negative for shortness of breath, cough, wheezing, and pleuritic chest pain, Abdomen/GI: Negative for abdominal pain, nausea, vomiting, diarrhea, and constipation, Back: Negative for injury and pain, : Negative for injury, bleeding, discharge, and swelling, MS/Extremity: Negative for injury and deformity, Skin: Negative for injury, rash, and discoloration, Psych: Negative for depression, anxiety, suicide ideation, homicidal ideation, and hallucinations, Allergy/Immunology: Negative for hives, rash, and allergies, Endocrine: Negative for neck swelling, polydipsia, polyuria, polyphagia, and marked weight changes, Hematologic/Lymphatic: Negative for swollen nodes, abnormal bleeding, and unusual bruising. 04:35 Neuro: Positive for syncope, near syncope, weakness. Exam: 04:35 Constitutional: This is a well developed, well nourished patient who is awake, alert, kdr and in no acute distress. Head/Face: Normocephalic, atraumatic. Eyes: Pupils equal round and reactive to light, extra-ocular motions intact. Lids and lashes normal. Conjunctiva and sclera are non-icteric and not injected. Cornea within normal limits. Periorbital areas with no swelling, redness, or edema. Neck: Trachea midline, no thyromegaly or masses palpated, and no cervical lymphadenopathy. Supple, full range of motion without nuchal rigidity, or vertebral point tenderness. No Meningismus. Chest/axilla: Normal chest wall appearance and motion. Nontender with no deformity. No lesions are appreciated. Cardiovascular: Regular rate and rhythm with a normal S1 and S2. No gallops, murmurs, or rubs. Normal PMI, no JVD. No pulse deficits. Respiratory: Lungs have equal breath sounds bilaterally, clear to auscultation and percussion. No rales, rhonchi or wheezes noted. No increased work of breathing, no retractions or nasal flaring. Abdomen/GI: Soft, non-tender, with normal bowel sounds. No distension or tympany. No guarding or rebound. No evidence of tenderness throughout. Back: No spinal tenderness. No costovertebral tenderness. Full range of motion. Skin: Warm, dry with normal turgor. Normal color with no rashes, no lesions, and no evidence of cellulitis. MS/ Extremity: Pulses equal, no cyanosis. Neurovascular intact. Full, normal range of motion. Neuro: Awake and alert, GCS 15, oriented to person, place, time, and situation. Cranial nerves II-XII grossly intact. Motor strength 5/5 in all extremities. Sensory grossly intact. Cerebellar exam normal. Normal gait. Psych: Awake, alert, with orientation to person, place and time. Behavior, mood, and affect are within normal limits. Vital Signs: 04:29 BP 138 / 93; Pulse 69; Resp 17; Temp 97.8(O); Pulse Ox 99% on R/A; Weight 117.93 kg ll3 (R); Height 6 ft. 4 in. (193.04 cm) (R); Pain 0/10; 05:11 BP 147 / 90 Supine; Pulse 77; Pulse Ox 97% on R/A; ll3 05:11 BP 141 / 89 Sitting; Pulse 76; Pulse Ox 96% on R/A; ll3 05:11 BP 139 / 87 Standing; Pulse 80; Pulse Ox 97% on R/A; ll3 06:14 BP 156 / 88; Pulse 75; Resp 18; Pulse Ox 95% on R/A; ll3 04:29 Body Mass Index 31.65 (117.93 kg, 193.04 cm) ll3 MDM: 05:17 Patient medically screened. kdr 05:17 Data reviewed: vital signs, nurses notes, lab test result(s), radiologic studies. kdr Counseling: I had a detailed discussion with the patient and/or guardian regarding: the historical points, exam findings, and any diagnostic results supporting the discharge/admit diagnosis, lab results, radiology results. 07/17 04:34 Order name: Basic Metabolic Panel; Complete Time: 07:21 kdr 07/17 04:34 Order name: CBC with Diff; Complete Time: 07:21 kdr 07/17 04:34 Order name: NT PRO-BNP; Complete Time: 07:21 kdr 07/17 04:34 Order name: Troponin HS; Complete Time: 07:21 kdr 07/17 05:24 Order name: SARS RAPID; Complete Time: 07:21 tw5 07/17 07:46 Order name: Basic Metabolic Panel EDMS 07/17 04:34 Order name: XRAY Chest (1 view) kdr 07/17 04:34 Order name: EKG; Complete Time: 04:35 kdr 07/17 07:45 Order name: CONS Physician Consult EDMS 07/17 07:46 Order name: Basic Metabolic Panel EDMS 07/17 07:46 Order name: CBC with Automated Diff EDMS 07/17 07:46 Order name: CBC with Automated Diff EDMS 07/17 04:34 Order name: Cardiac monitoring; Complete Time: 04:43 kdr 07/17 04:34 Order name: EKG - Nurse/Tech; Complete Time: 04:43 kdr 07/17 04:34 Order name: IV Saline Lock; Complete Time: 04:43 kdr 07/17 04:34 Order name: Labs collected and sent; Complete Time: 04:43 kdr 07/17 04:34 Order name: O2 Per Protocol; Complete Time: 04:37 kdr 07/17 04:34 Order name: O2 Sat Monitoring; Complete Time: 04:37 kdr 07/17 04:34 Order name: Orthostatic Blood Pressure; Complete Time: 05:13 kdr 07/17 07:46 Order name: Regular EDMS 07/17 07:46 Order name: EKG Electrocardiogram EDMS 07/17 07:46 Order name: EKG Electrocardiogram EDMS 07/17 07:46 Order name: EKG Electrocardiogram EDMS 07/17 07:46 Order name: EKG Electrocardiogram EDMS 07/17 07:59 Order name: Diet Regular; Complete Time: 08:00 jl7 Administered Medications: 04:50 Drug: NS 0.9% 500 ml Route: IV; Rate: bolus; Site: right forearm; ll3 06:15 Follow up: Response: No adverse reaction; IV Status: Completed infusion; IV Intake: ll3 500ml 04:55 Drug: NS 0.9% 1000 ml Route: IV; Rate: 125 ml/hr; Site: right forearm; ll3 08:00 Follow up: Response: No adverse reaction; IV Status: Infusion continued upon admission jl7 Disposition Summary: 07/17/22 05:17 Hospitalization Ordered Hospitalization Status: Observation kdr Provider: Davied Linn Condition: Fair kdr Problem: new kdr Symptoms: have improved kdr Bed/Room Type: Standard kdr Location: [facility] ER HOLD(07/17/22 13:08) jl7 Room Assignment: ERHOLD-(07/17/22 13:08) jl7 Diagnosis - Syncope Near kdr Forms: - Medication Reconciliation Form kdr - SBAR form kdr Signatures: Dispatcher [employer] EDMS Greg Tariq MD MD kdr Leal, Jahala, RN RN jl7 Betzaida Souza RN RN ll3 Corrections: (The following items were deleted from the chart) 13:08 05:17 Telemetry/MedSurg (observation) arcadio jl7 13:08 05:17 arcadio zacarias
--- NOTE | 2022-07-17 05:17 | ER ---
Nurse's Notes [facility] Name: Brijesh Reveles Age: 77 yrs Sex: Male : 1945 Arrival Date: 07/17/2022 Time: 04:19 Bed 19 Private MD: Diagnosis: Syncope Near Presentation: 07/17 04:29 Chief complaint: EMS states: Toned out for syncope, pt states he felt dizzy and and ll3 passed out, states he slid down and landed on elbows, denies hitting head, denies pain. Coronavirus screen: Vaccine status: Patient reports receiving the 2nd dose of the covid vaccine. Ebola Screen: No symptoms or risks identified at this time. Initial Sepsis Screen: Does the patient meet any 2 criteria? No. Patient's initial sepsis screen is negative. Does the patient have a suspected source of infection? No. Patient's initial sepsis screen is negative. Risk Assessment: Do you want to hurt yourself or someone else? Patient reports no desire to harm self or others. Onset of symptoms was July 16, 2022. Care prior to arrival: IV initiated. 20 GA, in the right forearm. 04:29 Method Of Arrival: EMS: [facility] ll3 04:29 Acuity: DIVYA 3 ll3 Triage Assessment: 04:33 General: Appears comfortable, Behavior is calm, cooperative. Pain: Denies pain. Neuro: ll3 Level of Consciousness is awake, alert, obeys commands, Oriented to person, place, time, situation, Reports a syncopal episode Denies dizziness. Cardiovascular: Patient's skin is warm and dry. Respiratory: Respiratory effort is even, unlabored, Respiratory pattern is regular, symmetrical. Derm: Skin is pink, warm \T\ dry. Musculoskeletal: Circulation, motion, and sensation intact. Historical: - Allergies: 04:33 No Known Allergies; ll3 - PMHx: 04:33 ADD/ADHD; Arthritis; Depression; Hyperlipidemia; Hypertension; Hypothyroidism; ll3 - Immunization history:: Client reports receiving the 2nd dose of the Covid vaccine. - Social history:: Smoking status: Patient denies any tobacco usage or history of. Screenin:35 Abuse screen: Denies threats or abuse. Nutritional screening: No deficits noted. ll3 Tuberculosis screening: No symptoms or risk factors identified. Fall Risk Fall in past 12 months (25 points). No secondary diagnosis (0 pts). IV access (20 points). Ambulatory Aid- None/Bed Rest/Nurse Assist (0 pts). Gait- Normal/Bed Rest/Wheelchair (0 pts) Mental Status- Oriented to own ability (0 pts). Total Dobbs Fall Scale indicates High Risk Score (45 or more points). Fall prevention measures have been instituted. Side Rails Up X 2 Placed Close to Nursing Station Frequent Obs/Assessments Occuring Family Present and informed to notify staff if the need to leave the bedside As available patient and family educated on Fall Prevention Program and Strategies. Assessment: 04:35 General: See triage assessment. ll3 05:12 Reassessment: Pt requests something for his restless legs, ERP notified. ll3 06:14 Reassessment: No changes from previously documented assessment. Patient and/or family ll3 updated on plan of care and expected duration. Pain level reassessed. Patient is alert, oriented x 3, equal unlabored respirations, skin warm/dry/pink. Vital Signs: 04:29 BP 138 / 93; Pulse 69; Resp 17; Temp 97.8(O); Pulse Ox 99% on R/A; Weight 117.93 kg ll3 (R); Height 6 ft. 4 in. (193.04 cm) (R); Pain 0/10; 05:11 BP 147 / 90 Supine; Pulse 77; Pulse Ox 97% on R/A; ll3 05:11 BP 141 / 89 Sitting; Pulse 76; Pulse Ox 96% on R/A; ll3 05:11 BP 139 / 87 Standing; Pulse 80; Pulse Ox 97% on R/A; ll3 06:14 BP 156 / 88; Pulse 75; Resp 18; Pulse Ox 95% on R/A; ll3 04:29 Body Mass Index 31.65 (117.93 kg, 193.04 cm) ll3 ED Course: 04:19 Patient arrived in ED. 5 04:21 Greg Tariq MD is Attending Physician. kdr 04:33 Triage completed. ll3 04:33 Arm band placed on Patient placed in an exam room, on a stretcher, on pulse oximetry. ll3 04:35 Patient has correct armband on for positive identification. Bed in low position. Call ll3 light in reach. Side rails up X 1. Adult w/ patient. 04:35 Maintain EMS IV. Dressing intact. Good blood return noted. Site clean \T\ dry. Gauge \T\ ll 3 site: 20 RFA. 04:37 Betzaida Souza, RN is Primary Nurse. ll3 04:43 Basic Metabolic Panel Sent. 5 04:43 CBC with Diff Sent. mh5 04:43 NT PRO-BNP Sent. 5 04:43 Troponin HS Sent. 5 04:43 Initial lab(s) drawn, by me, sent to lab. EKG done, by ED staff, reviewed by Greg Tariq MD. 04:44 Warm blanket given. case monitor on. Pulse ox on. NIBP on. 5 05:05 XRAY Chest (1 view) In Process Unspecified. EDMS 05:16 Davide Linn MD is Hospitalizing Provider. kdr 05:20 No provider procedures requiring assistance completed. ll3 05:51 SARS RAPID Sent. mh5 05:51 rapid covid. 5 07:12 Primary Nurse role handed off by Betzaida Souza, ISMAEL jl7 07:13 Anai Alicea, ISMAEL is Primary Nurse. jl7 08:00 Patient admitted, IV remains in place. intact, No redness/swelling at site. jl7 Administered Medications: 04:50 Drug: NS 0.9% 500 ml Route: IV; Rate: bolus; Site: right forearm; ll3 06:15 Follow up: Response: No adverse reaction; IV Status: Completed infusion; IV Intake: ll3 500ml 04:55 Drug: NS 0.9% 1000 ml Route: IV; Rate: 125 ml/hr; Site: right forearm; ll3 08:00 Follow up: Response: No adverse reaction; IV Status: Infusion continued upon admission jl7 Medication: 06:12 VIS not applicable for this client. ll3 Intake: 06:15 IV: 500ml; Total: 500ml. ll3 Outcome: 05:17 Decision to Hospitalize by Provider. kdr 08:00 Admitted to ER Hold. Please see [facility] for further documentation. jl7 08:00 Condition: stable 08:00 Discharge instructions given to patient, family, Instructed on the need for admit, Demonstrated understanding of instructions. 13:51 Patient left the ED. jl7 Signatures: Dispatcher [employer] EDGreg Falk, MD MD kdr Akil, Iq[facility] Anai Alicea RN RN jl7 Betzaida Souza RN RN ll3 Corrections: (The following items were deleted from the chart) 06:12 06:05 Reassessment: Pt c/o H/A, Dr. Tariq notified, medicated as ordered, tolerated ll3 well ll3
[2022-07-17 06:04] LABS: Absolute Lymphocytes (CBC) 2.8 K/uL (0.7-4.9); Hematocrit 42.7 % (39.6-49.0); Lymphocytes % 28.5 % (15.3-44.8); MCV 87.3 fL (80-100); MPV 8.8 fL (7.6-11.3); Potassium 4.1 mmol/L (3.5-5.1); RBC Red Blood Cell Count 4.89 M/uL (4.33-5.43); Troponin High Sensitivity 8.4 pg/mL (<58.9)
[2022-07-17 06:18] LABS: SARS-CoV-2 Antigen Rapid Res Negative (Negative)
[2022-07-17] MEDS ORDERED: ONDANSETRON 4 MG/2 ML VIAL IV PRN (07:42)
[2022-07-17] MEDS ORDERED: ACETAMINOPHEN 500 MG TAB PO PRN (07:42)
[2022-07-17] MEDS ORDERED: ASPIRIN EC 81 MG TAB PO SCH (09:00)
[2022-07-17 09:32] VITALS: BMI 29.2
[2022-07-17] MEDS ORDERED: ASPIRIN EC 81 MG TAB PO ONE (12:51)
--- NOTE | 2022-07-17 12:53 | P.HP ---
Certification for Inpatient Patient admitted to: Observation With expected LOS: <2 Midnights Patient will require the following post-hospital care: None Practitioner: I am a practitioner with admitting privileges, knowledge of patient current condition, hospital course, and medical plan of care. Services: Services provided to patient in accordance with Admission requirements found in Title 42 Section 412.3 of the Code of Federal Regulations Patient History Date of Service: 07/17/22 Primary Care Provider: Kaveh Reason for admission: syncope History of Present Illness: Patient is here after 2 episodes syncope. He went to the [place] ER last night. Was discharged and had another syncopal episode. The patient was brought her then by ambulance. In both instances. He just stood up from his bed. Blacked out and fell back into the bed. He regained consciousness in 30sec. The patient had no symptoms of palpations or dizziness. He has had this a few times in the past. Has had an EEG with Dr. Miller. He recently had a full cardiac work up. The patient is currently sitting in the ER with no symptoms. He has normal labs and troponins Allergies No Known Allergies Allergy (Verified 02/18/22 10:27) Home Medications: Losartan Potassium 1 tab PO DAILY 05/03/17 Ropinirole HCl 1 tab PO BID 05/03/17 Sertraline [Zoloft*] 1 tab PO DAILY 05/03/17 Atorvastatin Calcium [Lipitor] 40 mg PO BEDTIME 02/18/22 Levothyroxine [Synthroid*] 88 mcg PO [id number] 02/18/22 Tamsulosin HCl 2.4 mg PO DAILY 02/18/22 - Past Medical/Surgical History Has patient received pneumonia vaccine in the past: Yes Diabetic: No -: HTN -: MARBELLA -: Sleep Apnea -: Restless leg syndrome -: Hypothyroid -: Anxiety -: left hip replacement -: right ankle tendon repair -: stitches left arm after cut -: hammer toe -: rotator cuff repair right shoulder -: left knee arthroscopy - Family History Father -: Lung disease, Cancer, Other (see notes) Notes: colon cancer Mother -: Hypertension, Stroke - Social History Smoking Status: Never smoker Alcohol use: No CD- Drugs: No Caffeine use: Yes Place of Residence: Home Review of Systems 10-point ROS is otherwise unremarkable Physical Examination - Vital Signs Temperature: 98.2 F Blood Pressure: 130/81 Pulse: 76 Respirations: 15 Pulse Ox (%): 96 - Physical Exam General: Alert, In no apparent distress HEENT: Atraumatic, PERRLA, Mucous membr. moist/pink, EOMI, Sclerae nonicteric Neck: Supple, 2+ carotid pulse no bruit, No LAD, Without JVD or thyroid abnormality Respiratory: Clear to auscultation bilaterally, Normal air movement Cardiovascular: Regular rate/rhythm, Normal S1 S2 Gastrointestinal: Normal bowel sounds, No tenderness Musculoskeletal: No tenderness Integumentary: No rashes Neurological: Normal gait, Normal speech, Normal strength at 5/5 x4 extr, Normal tone, Normal affect Lymphatics: No axilla or inguinal lymphadenopathy - Studies Laboratory Data (last 24 hrs) 07/17/22 04:40: WBC 9.70, Hgb 14.2, Hct 42.7, Plt Count 232 07/17/22 04:40: Sodium 142, Potassium 4.1, BUN 25 H, Creatinine 1.12, Glucose 110 H Assessment and Plan - Problems (Diagnosis) (1) Syncope Current Visit: Yes Status: Acute Plan: Will discuss the patient with Dr. Trinh. Will mostly need a outpatient work up. He most likely needs a Holter monitor and EP studies. These are all things to discuss with Dr. Singh Qualifiers: Syncope type: unspecified Qualified Code(s): R55 - Syncope and collapse (2) HTN (hypertension) Current Visit: Yes Status: Acute Plan: Will decrease thge dosage of losartan Discharge Plan: Home Plan to discharge in: 24 Hours - Advance Directives Does patient have a Living Will: No Does patient have a Durable POA for Healthcare: No - Code Status/Comfort Care Code Status Assessed: Yes Code Status: Full Code Physician Review: Patient Assessed, Agree with Above Assessment and Plan Critical Care: No Time Spent Managing Pts Care (In Minutes): 45
--- NOTE | 2022-07-17 13:17 | P.DS ---
Admission Date: 07/17/22 Discharge Date: 07/17/22 Primary Care Provider: Kaveh Disposition: ROUTINE DISCHARGE Discharge Condition: GOOD Reason for Admission: syncope - Problems (1) Syncope Current Visit: Yes Status: Acute Qualifiers: Syncope type: unspecified Qualified Code(s): R55 - Syncope and collapse (2) HTN (hypertension) Current Visit: Yes Status: Acute Brief History of Present Illness: Patient is here after 2 episodes syncope. He went to the [place] ER last night. Was discharged and had another syncopal episode. The patient was brought her then by ambulance. In both instances. He just stood up from his bed. Blacked out and fell back into the bed. He regained consciousness in 30sec. The patient had no symptoms of palpations or dizziness. He has had this a few times in the past. Has had an EEG with Dr. Miller. He recently had a full cardiac work up. The patient is currently sitting in the ER with no symptoms. He has normal labs and troponins Hospital Course: Have discussed the patient with Dr. Singh. Plan for an event monitor. Will discharge him home. Dr. Singh would like to see him in the office tomorrow at 1pm. His son was in the room. He is also having some blackout episodes. Vital Signs/Physical Exam: Temp Pulse Resp BP Pulse Ox 98.2 F 76 15 130/81 96 07/17/22 12:55 07/17/22 12:55 07/17/22 12:55 07/17/22 12:55 07/17/22 12:55 General: Alert, In no apparent distress HEENT: Atraumatic, PERRLA, EOMI Neck: Supple, JVD not distended Respiratory: Clear to auscultation bilaterally, Normal air movement Cardiovascular: Regular rate/rhythm, Normal S1 S2 Gastrointestinal: Normal bowel sounds, No tenderness Musculoskeletal: No tenderness Integumentary: No rashes Neurological: Normal speech, Normal tone, Normal affect Lymphatics: No axilla or inguinal lymphadenopathy Laboratory Data at Discharge: WBC 9.70 K/uL (4.3-10.9) 07/17/22 04:40 Hgb 14.2 g/dL (13.6-17.9) 07/17/22 04:40 Hct 42.7 % (39.6-49.0) 07/17/22 04:40 Plt Count 232 K/uL (152-406) 07/17/22 04:40 Sodium 142 mmol/L (136-145) 07/17/22 04:40 Potassium 4.1 mmol/L (3.5-5.1) 07/17/22 04:40 BUN 25 mg/dL (7-18) H 07/17/22 04:40 Creatinine 1.12 mg/dL (0.55-1.3) 07/17/22 04:40 Glucose 110 mg/dL (74-106) H 07/17/22 04:40 Home Medications: Losartan Potassium 1 tab PO DAILY 05/03/17 Ropinirole HCl 1 tab PO BID 05/03/17 Sertraline [Zoloft*] 1 tab PO DAILY 05/03/17 Atorvastatin Calcium [Lipitor] 40 mg PO BEDTIME 02/18/22 Levothyroxine [Synthroid*] 88 mcg PO [id number] 02/18/22 Tamsulosin HCl 2.4 mg PO DAILY 02/18/22 Followup: Jim Singh MD [ACTIVE - CAN ADMIT] - 1 Day Davide Linn MD [Primary Care Provider] - 1 Week
[2022-07-17 14:19] VITALS: TEMP 97.8
[2022-07-17 14:24] VITALS: BP 156/88; O2SAT 95
[2022-07-17] MEDS ORDERED: ROPINIROLE HCL 5 MG PO SCH (21:00)
[2022-07-17] MEDS ORDERED: ATORVASTATIN 40 MG TAB PO SCH (21:00)
[2022-07-18] MEDS ORDERED: LEVOTHYROXINE SOD 0.088 MG TAB PO SCH (06:00)
--- NOTE | 2022-07-18 08:09 | EKG ---
Test Date: 2022-07-17 Test Time: 04:51:57 Shaker Screen Operator: LL MEASUREMENT RESULTS: Intervals: Rate: 73 CA: 154 QRSD: 98 QT: 406 QTc: 447 [place]: P: 57 CA: 154 QRS: 14 T: 50 INTERPRETIVE STATEMENTS: Normal sinus rhythm Normal ECG Compared to ECG 05/02/2017 19:48:19 No significant changes Electronically Signed On 07-18-22 08:06:32 CDT by Jim Singh
[2022-07-18] MEDS ORDERED: TAMSULOSIN 0.4 MG SR CAP PO SCH (09:00)
[2022-07-18] MEDS ORDERED: SERTRALINE HCL 100 MG TAB PO SCH (09:00)
[2022-07-18] MEDS ORDERED: LOSARTAN POTASSIUM 50 MG TABLET PO SCH (09:00)
--- NOTE | 2022-07-18 13:51 | RAD REPORT ---
EXAM DESCRIPTION: RAD - Chest Single View - 07/17/2022 5:03 am CLINICAL HISTORY: 77 years Male, syncope COMPARISON: None. FINDINGS: Low lung volumes accentuating the cardiomediastinal silhouette. Left basilar opacity with obscuration of left hemidiaphragm and costophrenic angle. No pneumothorax. Postsurgical changes in the right glenoid. IMPRESSION: Left basilar atelectasis versus infiltrate with suspected small pleural effusion. Electronically signed by: Roberto Carlos Clark MD 07/17/2022 6:57 AM CDT Due to temporary technical issues with the PACS/Fluency reporting system, reports are being signed by the in house radiologists without review as a courtesy to insure prompt reporting. The interpreting radiologist is fully responsible for the content of the report.
== END 2022-07-17 13:51 | disposition home or self-care (01) ==
LOC: ER 04:16 → ERHOLD 08:03
PROVIDERS: ADMIT Internal Medicine; ATTEND Internal Medicine
DX: R55 Syncope and collapse (principal); I10 Essential (primary) hypertension; G47.33 Obstructive sleep apnea (adult) (pediatric); G25.81 Restless legs syndrome; Z79.899 Other long term (current) drug therapy; E03.9 Hypothyroidism, unspecified; E78.5 Hyperlipidemia, unspecified; F41.9 Anxiety disorder, unspecified; F32.A Depression, unspecified; Z20.822 Contact with and (suspected) exposure to COVID-19; Z96.642 Presence of left artificial hip joint; Z82.49 Family history of ischemic heart disease and other diseases of the circulatory system; Z82.3 Family history of stroke; Z80.0 Family history of malignant neoplasm of digestive organs
CPT/HCPCS: 36415; 71045; 80048; 83880; 84484; 85025; 87811; 93005; 96360; 96361; 99285; G0378; J7030; J7040

== ENCOUNTER 2023-06-09 06:26 | Day surgery (SDC) | payer OTHER ==
--- NOTE | 2023-06-08 15:43 | EKG ---
Test Date: 2023-06-08 Test Time: 10:39:58 Mesmerist: ET MEASUREMENT RESULTS: Intervals: Rate: 73 VA: 144 QRSD: 100 QT: 390 QTc: 429 Energy: P: 47 VA: 144 QRS: -2 T: 31 INTERPRETIVE STATEMENTS: Normal sinus rhythm Normal ECG Compared to ECG 07/17/2022 04:51:57 No significant changes Electronically Signed On 06-08-23 15:42:40 CDT by Adelfo James
[2023-06-09] MEDS ORDERED: Ringers Lactate 1,000 ML IV ONE (06:52)
[2023-06-09] MEDS ORDERED: OXYMETAZOLINE HCL 0.05% 15ML NAS ONE (07:00)
[2023-06-09] MEDS ORDERED: NA CHLORIDE 0.9% 0 ML ONE (07:01)
[2023-06-09] MEDS ORDERED: SUCCINYLCHOLINE 20 MG/ML (10 ML) IV ONE ×2 (07:05→07:25)
[2023-06-09] MEDS: OXYMETAZOLINE HCL 0.05% 15ML NAS ONE ×2 (07:15→07:46)
[2023-06-09] MEDS ORDERED: FENTANYL CITR 100 MCG/2 ML ONE ×2 (07:25→09:56)
[2023-06-09] MEDS ORDERED: ROCURONIUM 50 MG/5 ML VIAL IV ONE (07:27)
[2023-06-09] MEDS ORDERED: ONDANSETRON 4 MG/2 ML VIAL ONE (07:27)
[2023-06-09] MEDS ORDERED: LIDOCAINE 2% MPF 5 ML VIAL ONE ×2 (07:27→08:37)
[2023-06-09] MEDS ORDERED: propofoL 200 MG/20 ML VIAL IV ONE ×3 (07:27→08:45)
[2023-06-09] MEDS ORDERED: dexAMETHasone 10 MG/ML VIAL ONE (07:27)
[2023-06-09] MEDS ORDERED: MIDAZOLAM HCL 2 MG/2 ML INJ ONE (07:41)
[2023-06-09] MEDS: LIDOCAINE HCL/EPINEPHRINE 20 ML MDV ONE ×2 (07:46→08:14)
[2023-06-09] MEDS ORDERED: NS 0.9% VIAL 10 ML ONE (08:07)
[2023-06-09] MEDS ORDERED: EPHEDRINE SULF 50 MG/ML VIAL ONE (08:07)
[2023-06-09] MEDS: Ringers Lactate 1,000 ML IV ONE ×2 (08:13→08:16)
[2023-06-09] MEDS ORDERED: BACITRACIN OINTMENT 14 GM TUBE TOP ONE (08:23)
[2023-06-09] MEDS ORDERED: GLYCOPYRROLATE 0.2 MG/ML SYR ONE (08:31)
[2023-06-09] MEDS ORDERED: NEOSTIGMINE 1 MG/ML -10 ML VIAL ONE (08:35)
[2023-06-09] MEDS ORDERED: KETAMINE HCL IN 0.9 % NACL 50 MG/5 ML SYRINGE IV ONE (08:36)
--- NOTE | 2023-06-09 08:45 | P.OP ---
Date of Service: 06/09/23 Surgeon: Dr. Shaniqua [employer] Specialist: None Procedure: Evaluation of sleep disordered breathing by examination of upper airway using an endoscope; CPT: 30631 excision nasal scar, right radiofrequency remodeling of the internal nasal valve and turbinate reduction via superficial ablation with radiofrequency Preoperative diagnosis: Moderate or severe obstructive sleep apnea with positive airway pressure intolerance. Nasal airway obstruction, nasal synechia, turbinate hypertrophy, nasal valve collapse Postoperative diagnosis: Moderate or severe sleep apnea with positive pressure airway intolerance. Nasal obstruction, nasal synechia, nasal hypertrophy, nasal valve collapse Anesthesia: IV sedation, transitioning to general anesthesia via endotracheal tube Estimated blood loss: 5 to 10 mL Complications: None Brief clinical history: This is a 78-year-old patient with a history of moderate to severe symptomatic obstructive sleep apnea who is intolerant and unable to achieve benefit with positive pressure therapy. Despite trial with different machines and multiple masks over the last 10 years, he continues to have poor tolerance and excessive leak during use. They present today for drug-induced sleep endoscopy to better characterize the location and pattern of obstruction and to predict appropriate medical and/or surgical options moving forward. In addition he was noted to have the above nasal findings during his evaluation with plan for augmentation and improvement of the nasal airway during this fernandez rgical setting Procedure findings: There was no evidence of complete concentric palatal obstruction and they appear to be a candidate anatomically for hypoglossal nerve stimulation therapy. Implants: Garcia splints bilateral nasal cavity Description of procedure: The patient was brought to the operating room and was administered anesthesia via standard drug-induced sleep endoscopy protocol. The patient was administered propofol while under monitoring including oxygen concentration, CO2, blood pressure, and pulse under conditions felt to mimic sleep. The patient was nonresponsive to verbal commands. He was initially apneic but over about 2 minutes he began to have spontaneous ventilation and patient was noted to have observed apnea and snoring consistent with diagnosis of obstructive sleep apnea. Under these conditions, the flexible endoscope was inserted into both sides of the nose and advanced to the nasopharynx, and oral pharynx with observation of the larynx. He had significant secretions partially obstructing the soft palate. He had partial concentric collapse of the palate. At the conclusion of the exam, the scope was withdrawn. There was no evidence of any injury to the nasal mucosa and no evidence of active epistaxis. The patient was monitored with spontaneous ventilation until the patient's level of alertness increased and they responded to verbal commands and demonstrated active and intact control of their airway. The patient was placed under general anesthesia via oral endotracheal tube for the remaining portion of the procedure. The head of bed was turned 90 degrees. 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 The underlying cause for this scar is uncertain. The left nasal cavity was noted to have narrow nasal valve and turbinate hypertrophy compromising the nasal airway. Additionally there was significant left septal swell body causing some obstruction of the nasal airway which was not improved subjectively despite use of intranasal steroid sprays daily. After suctioning of the nasal cavity, the right nasal scar was injected with 1% lidocaine with epinephrine. A through-cutting straight and 45 degree Blakesley was used to cut and remove the scar. After removal of the scar between the septum and inferior turbinate and the septum and lateral nasal wall there was additional scar tissue noted on the upper portion of the inferior turbinate to the anterior portion of the middle turbinate which was removed in a similar fashion using through-cutting Blakesley instruments. The nasal cavity was packed with Afrin-soaked pledgets to aid in bleeding control. Attention was then turned to the left nasal cavity. The [employer] handpiece was used to perform radiofrequency remodeling of the left nasal valve by applying the instrument in four adjacent areas along the nasal valve: with distraction of the cartilage and soft tissues, the handpiece was activated and held in place for 18 seconds while radiofrequency energy was applied. The distraction was held in place during an additional 12-second cooling cycle. This was repeated along the length of the nasal valve until adequate remodeling was accomplished. The radiofrequency handpiece was then used to perform superficial mucosal ablation of the left middle turbinate along the height and length of the middle turbinate by applying radiofrequency for a 15-second cycle at each location. The radiofrequency handpiece was then used to destroy the left septal swell body by applying a 15-second cycle in 3 separate locations along the prominent swelling of the left superior mid septum. The Afrin-soaked pledgets were removed from the right nasal cavity. Bleeding appeared to be minimal. The [employer] handpiece was used to perform radiofrequency remodeling of the right nasal valve by applying the instrument in four adjacent areas along the nasal valve: with distraction of the cartilage and soft tissues, the handpiece was activated and held in place for 18 seconds while radiofrequency energy was applied. The distraction was held in place during an additional 12-second cooling cycle. This was repeated along the length of the nasal valve until adequate remodeling was accomplished. The radiofrequency handpiece was then used to perform superficial mucosal ablation of the right middle turbinate along the height and length of the middle turbinate by applying radiofrequency for a 15-second cycle at each location. The nasal cavity was irrigated and photodocumentation of the postoperative findings was obtained. Due to the degree of the right nasal cavity scar, I elected to place bilateral Garcia splints in order to place a protective barrier and avoid recurrence of the synechia. The Garcia splints were placed in the right and left nasal cavity and secured anteriorly using a 4-0 nylon suture. Nasal cavity and oropharynx were thoroughly suctioned and the patient was returned to anesthesia for awakening and extubation in the operating room which out which proceeded without difficulty. Pledget counts and instrument counts and needle counts were all current confirmed correct by the operating room staff. In summary, there was no evidence of complete concentric palatal obstruction and they appeared to be a candidate anatomically for hypoglossal nerve stimulation. The procedures performed on the nasal cavity are expected to improve the patient's nasal airway and nasal breathing for optimization of daytime and nighttime nasal breathing. I was present for and personally performed the entire procedure.
[2023-06-09] MEDS: FENTANYL CITR 100 MCG/2 ML ONE ×3 (09:08→09:52)
[2023-06-09] MEDS ORDERED: HYDROCODONE/APAP 7.5/325 MG TAB ONE (10:08)
[2023-06-09 13:28] VITALS: BP 138/68; TEMP 97.1
[2023-06-09 13:35] VITALS: O2SAT 94
== END 2023-06-09 10:57 | disposition home or self-care (01) ==
LOC: OR 06:26
PROVIDERS: ATTEND Otolaryngology
PROC: 095L7ZZ Destruction of Nasal Turbinate, Via Natural or Artificial Opening (ICD-10-PCS; 2023-06-09)
PROC: 09QK8ZZ Repair Nasal Mucosa and Soft Tissue, Via Natural or Artificial Opening Endoscopic (ICD-10-PCS; 2023-06-09)
PROC: 09JK8ZZ Inspection of Nasal Mucosa and Soft Tissue, Via Natural or Artificial Opening Endoscopic (ICD-10-PCS; 2023-06-09)
PROC: 0CJY8ZZ Inspection of Mouth and Throat, Via Natural or Artificial Opening Endoscopic (ICD-10-PCS; principal; 2023-06-09 07:30)
DX: G47.33 Obstructive sleep apnea (adult) (pediatric) (principal); J34.89 Other specified disorders of nose and nasal sinuses; M95.0 Acquired deformity of nose
CPT/HCPCS: 42975; 30801; 30469; 93005; 31237; A4216; J2704 ×2; J2710; J2001 ×2; J2250; J3010 ×3; J1100; J2405; J7120 ×2; J7040

== ENCOUNTER 2023-07-18 21:00 | Emergency (ER) | payer OTHER ==
--- OUTSIDE RECORDS SUMMARY | 2023-07-18 21:03 | XMS REPORT | Continuity of Care Document ---
:1945 Author Organization [facility] t Address [address] [place] [id number] Care Team Providers Name Role Phone PCP, PATIENT DOES NOT HAVE A Primary Care Physician UnavailMau Dolan Attending Clinician Unavailable CAMILO DENSON Attending Clinician Unavailable Shae Liao DO Attending Clinician Camilo Denson MD Attending Clinician Payers Payer Name Policy Type Policy Number Effective Date Expiration Date Robel burt MEDICARE PART A [id number] 2012 \\T\\ B 00:00:00 [employer] INDEMNITY [id number] 2018 00:00:00 AETNA 53 [id number] 2002 [facility] 00:[facility] AETNA 53 [id number] [facility] MEDICARE MB [id number] 2012 [facility] 00:00:00 [facility] Problems Condition Condition Condition Status Onset Resolution Last Treating Co mments Source Name Details Category Date Date Treatment Clinician Date No known No known Disease Unive rs active active ity of problems problems 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 - [facility] replacemen t, [facility] [id number] RLS Problem Common (restless [facility] legs - [facility] syndrome) [facility] [id number] Nocturia Problem Comm on Spirit - [facility] Essential Benign Problem Common hypertensi essential Spi rit on HTN - [facility] Prediabete Prediabete Problem C ompratik s s Spirit - [facility] Anxiety Anxiety Problem [facility] Hypothyroi Hypothyroi Problem C ommon dism dism [facility] - [facility] History of H/O stroke Problem C ommon cerebrovas without Sp[facility] t cular residual - [facility]I accident deficits without [facility] residual Medical deficits Center Osteoarthr Osteoarthr Problem C ommon itis of itis of Spirit multiple multiple - [facility] joints joints [facility] [id number] Medicare Problem Comm on annual [facility] wellness - [facility] visit, [facility] [id number] Allergic Problem Commo n rhinitis, Spirit unspecifie - [facility] d [facility] d trigger Obstructiv Obstructiv Problem C ommon e sleep e sleep Spirit apnea apnea - [facility] [id number] Primary Problem Comm on osteoarthr Spirit itis of - [facility] left knee [facility] Mixed Hyperlipid Problem Commo n hyperlipid emia, Spirit emia mixed [facility] [id number] Constipati Problem Com mon, Spirit unspecifie - CHI d constipati [facility] on [facility] [id number] Current Problem Common mild Spirit episode of - [facility] major [facility] Center prior episode [id number] Noncomplia Problem Co mmon nce with Spirit dietary - [facility] restrictio [facility] [id number] Acute Problem Common otitis Spirit externa of - [facility] left ear, [facility] [place] Allergies, Adverse Reactions, Alerts Allergy Allergy Status Severity Reaction(s) Onset Inactive Treating Comm ents Source Name Type Date Date Clinician NO KNOWN Drug Active Univers ALLERGIE Class ity of S [facility] Social History Social Habit Start Date Stop Date Quantity Comments Source History of Tobacco [facility] Use [facility] Sex Assigned At [facility] yousif - [facility]I [facility] Exposure to 2022-07-06 2022-07-16 Not sure [facility] SARS-CoV-2 (event) 00:00:00 22:33:00 Medica l Branch Smoking Status Start Date Stop Date Source Tobacco [facility] Never Smoker [facility] Medications Ordered Filled Start Stop Current Ordering Indication Dosage Frequency Signature Comments Components Source Medication Medication Date Date Medication? Clinician (SIG) Name Name rOPINIRole Yes .5mg Take 0.5 Uni vers 0.5 mg 8-20 mg by ity of tablet 22:56: mouth in [place] 16 the Medical morning Branch and 0.5 mg in the evening. atorvastati Yes 40mg Take 40 mg Univers n 40 mg 8-20 by mouth ity of tablet 22:56: in the [place] [address] morning. Medical Branch tamsulosin Yes 2.4mg Take 2.4 Un elizabeth HCl 8-20 mg by ity of (TAMSULOSIN 22:56: mouth [place] ORAL) 16 daily. Medical Branch SERTraline Yes 100mg Take 100 Un elizabeth 100 mg 8-20 mg by ity of tablet 22:56: mouth in [place] 16 the Medical morning. Branch losartan Yes 100mg Take 100 Univ ers 100 mg 8-20 mg by ity of tablet 22:56: mouth in [place] 16 the Medical morning. Branch levothyroxi Yes .088mg Take 0.088 Univers ne sodium 8-20 mg by ity of (LEVOTHYROX 22:56: mouth [place] INE ORAL) 16 daily. Medical Branch HYDROcodone HYDROcodone No 1{table HYDROcodon -Acetaminop -Acetaminop 4-14 t_as_ne e-Acetamin hen 5-325 hen 5-325 00:00: eded} ophen MG MG 00 5-325 MG HYDROcodone HYDROcodone No 1{table HYDROcodon -Acetaminop -Acetaminop 4-14 t_as_ne e-Acetamin hen 5-325 hen 5-325 00:00: eded} ophen MG MG 00 5-325 MG HYDROcodone HYDROcodone No 1{table HYDROcodon -Acetaminop -Acetaminop 4-14 t_as_ne e-Acetamin hen 5-325 hen 5-325 00:00: eded} ophen MG MG 00 5-325 MG HYDROcodone HYDROcodone 2021-0 No 1{table HYDROcodon -Acetaminop -Acetaminop 4-14 t_as_ne e-Acetamin hen 5-325 hen 5-325 00:00: eded} ophen MG MG 00 5-325 MG HYDROcodone HYDROcodone 2021-0 No 1{table HYDROcodon -Acetaminop -Acetaminop 4-14 t_as_ne e-Acetamin hen 5-325 hen 5-325 00:00: eded} ophen MG MG 00 5-325 MG HYDROcodone HYDROcodone 2021-0 No 1{table HYDROcodon -Acetaminop -Acetaminop 4-14 t_as_ne e-Acetamin hen 5-325 hen 5-325 00:00: eded} ophen MG MG 00 5-325 MG HYDROcodone HYDROcodone 2021-0 No 1{table HYDROcodon -Acetaminop -Acetaminop 4-14 t_as_ne e-Acetamin hen 5-325 hen 5-325 00:00: eded} ophen MG MG 00 5-325 MG HYDROcodone HYDROcodone 2021-0 No 1{table QID HYDROcodon -Acetaminop -Acetaminop 4-04 t_as_ne e-Acetamin hen 7.5-325 hen 7.5-325 00:00: eded} ophen MG MG 00 7.5-325 MG HYDROcodone HYDROcodone 2021-0 No 1{table QID HYDROcodon -Acetaminop -Acetaminop 4-04 t_as_ne e-Acetamin hen 7.5-325 hen 7.5-325 00:00: eded} ophen MG MG 00 7.5-325 MG HYDROcodone HYDROcodone 2021-0 No 1{table QID HYDROcodon -Acetaminop -Acetaminop 4-04 t_as_ne e-Acetamin hen 7.5-325 hen 7.5-325 00:00: eded} ophen MG MG 00 7.5-325 MG HYDROcodone HYDROcodone 2021-0 No 1{table QID HYDROcodon -Acetaminop -Acetaminop 4-04 t_as_ne e-Acetamin hen 7.5-325 hen 7.5-325 00:00: eded} ophen MG MG 00 7.5-325 MG HYDROcodone HYDROcodone 2021-0 No 1{table QID HYDROcodon -Acetaminop -Acetaminop 4-04 t_as_ne e-Acetamin hen 7.5-325 hen 7.5-325 00:00: eded} ophen MG MG 00 7.5-325 MG HYDROcodone HYDROcodone 2021-0 No 1{table QID HYDROcodon -Acetaminop -Acetaminop 4-04 t_as_ne e-Acetamin hen 7.5-325 hen 7.5-325 00:00: eded} ophen MG MG 00 7.5-325 MG HYDROcodone HYDROcodone 2021-0 No 1{table QID HYDROcodon -Acetaminop -Acetaminop 4-04 t_as_ne e-Acetamin hen 7.5-325 hen 7.5-325 00:00: eded} ophen MG MG 00 7.5-325 MG HYDROcodone HYDROcodone 2021-0 No 1{table QID HYDROcodon -Acetaminop -Acetaminop 4-04 t_as_ne e-Acetamin hen 7.5-325 hen 7.5-325 00:00: eded} ophen MG MG 00 7.5-325 MG Xarelto 10 Xarelto 10 2021-0 No 1{table QD Xarelto 10 MG MG 3-28 t} MG 00:00: 00 HYDROcodone HYDROcodone 2021-0 No 1{table HYDROcodon -Acetaminop -Acetaminop 3-28 t_as_ne e-Acetamin hen 7.5-325 hen 7.5-325 00:00: eded} ophen MG MG 00 7.5-325 MG Xarelto 10 Xarelto 10 2021-0 No 1{table QD Xarelto 10 MG MG 3-28 t} MG 00:00: 00 HYDROcodone HYDROcodone 2021-0 No 1{table HYDROcodon -Acetaminop -Acetaminop 3-28 t_as_ne e-Acetamin hen 7.5-325 hen 7.5-325 00:00: eded} ophen MG MG 00 7.5-325 MG HYDROcodone HYDROcodone 2021-0 No 1{table HYDROcodon -Acetaminop -Acetaminop 3-28 t_as_ne e-Acetamin hen 7.5-325 hen 7.5-325 00:00: eded} ophen MG MG 00 7.5-325 MG Xarelto 10 Xarelto 10 2021-0 No 1{table QD Xarelto 10 MG MG 3-28 t} MG 00:00: 00 Xarelto 10 Xarelto 10 2021-0 No 1{table QD Xarelto 10 MG MG 3-28 t} MG 00:00: 00 HYDROcodone HYDROcodone 2021-0 No 1{table HYDROcodon -Acetaminop -Acetaminop 3-28 t_as_ne e-Acetamin hen 7.5-325 hen 7.5-325 00:00: eded} ophen MG MG 00 7.5-325 MG Xarelto 10 Xarelto 10 2021-0 No 1{table QD Xarelto 10 MG MG 3-28 t} MG 00:00: 00 HYDROcodone HYDROcodone 2021-0 No 1{table HYDROcodon -Acetaminop -Acetaminop 3-28 t_as_ne e-Acetamin hen 7.5-325 hen 7.5-325 00:00: eded} ophen MG MG 00 7.5-325 MG HYDROcodone HYDROcodone 2021-0 No 1{table HYDROcodon -Acetaminop -Acetaminop 3-28 t_as_ne e-Acetamin hen 7.5-325 hen 7.5-325 00:00: eded} ophen MG MG 00 7.5-325 MG Xarelto 10 Xarelto 10 2021-0 No 1{table QD Xarelto 10 MG MG 3-28 t} MG 00:00: 00 Xarelto 10 Xarelto 10 2021-0 No 1{table QD Xarelto 10 MG MG 3-28 t} MG 00:00: 00 HYDROcodone HYDROcodone 2021-0 No 1{table HYDROcodon -Acetaminop -Acetaminop 3-28 t_as_ne e-Acetamin hen 7.5-325 hen 7.5-325 00:00: eded} ophen MG MG 00 7.5-325 MG HYDROcodone HYDROcodone 2021-0 No 1{table HYDROcodon -Acetaminop -Acetaminop 3-28 t_as_ne e-Acetamin hen 7.5-325 hen 7.5-325 00:00: eded} ophen MG MG 00 7.5-325 MG Xarelto 10 Xarelto 10 2021-0 No 1{table QD Xarelto 10 MG MG 3-28 t} MG 00:00: 00 HYDROcodone HYDROcodone 2021-0 No 1{table HYDROcodon -Acetaminop -Acetaminop 3-28 t_as_ne e-Acetamin hen 7.5-325 hen 7.5-325 00:00: eded} ophen MG MG 00 7.5-325 MG Xarelto 10 Xarelto 10 2021-0 No 1{table QD Xarelto 10 MG MG 3-28 t} MG 00:00: 00 HYDROcodone HYDROcodone 2021-0 No 1{table HYDROcodon -Acetaminop -Acetaminop 3-28 t_as_ne e-Acetamin hen 7.5-325 hen 7.5-325 00:00: eded} ophen MG MG 00 7.5-325 MG Xarelto 10 Xarelto 10 2021-0 No 1{table QD Xarelto 10 MG MG 3-28 t} MG 00:00: 00 Bupivicaine Bupivicaine 2020-11 No Common Bonita Bonita 1-23 Spirit 00:00: - [facility] 00 [facility] Jeremyalog Kenalog 2020-11 No 40mg Common (Triamcinol (Triamcinol 1-23 S pirit one) one) 00:00: - [facility]I 00 [facility] Bupivicaine Bupivicaine 2020-11 No Common Bonita Bonita 1-23 Spirit 00:00: - [facility] 00 [facility] Kenalog Kenalog 2020-11 No 40mg Common (Triamcinol (Triamcinol 1-23 S pirit one) one) 00:00: - [facility]I 00 [facility] Bupivicaine Bupivicaine 2020-11 No Common Bonita Bonita 1-23 Spirit 00:00: - [facility] 00 [facility] Kenalog Kenalog 2020-11 No 40mg Common (Triamcinol (Triamcinol 1-23 S pirit one) one) 00:00: - [facility] 00 [facility] Bupivicaine Bupivicaine 2020-11 No 2.5mg Common Bonita Bonita 1-23 Spirit 00:00: - [facility] 00 [facility] Kenalog Kenalog 2020-11 No 40mg Common (Triamcinol (Triamcinol 1-23 S pirit one) one) 00:00: - [facility] 00 [facility] Bupivicaine Bupivicaine 2020- No 2.5mg Common Bonita Bonita 1-23 Spirit 00:00: - [facility] 00 [facility] Kenalog Kenalog 2020-11 No 40mg Common (Triamcinol (Triamcinol 1-23 S pirit one) one) 00:00: - [facility] 00 [facility] Bupivicaine Bupivicaine 2020-11 No 2.5mg Common Bonita Bonita 1-23 Spirit 00:00: - [facility] 00 [facility] Reji Kenalog 2020-11 No 40mg Common (Triamcinol (Triamcinol 1-23 S pirit one) one) 00:00: - [facility] 00 [facility] Bupivicaine Bupivicaine 2020-11 No 2.5mg Common Bonita Bonita 1-23 Spirit 00:00: - [facility] 00 [facility] Jeremyalog Kenalog 2020-11 No 40mg Common (Triamcinol (Triamcinol 1-23 S pirit one) one) 00:00: - [facility] 00 [facility] Bupivicaine Bupivicaine 2020-11 No 2.5mg Common Bonita Bonita 1-23 Spirit 00:00: - [facility] 00 [facility] Kenalog Kenalog 2020-11 No 40mg Common (Triamcinol (Triamcinol 1-23 S pirit one) one) 00:00: - [facility] 00 [facility] Bupivicaine Bupivicaine 2020-11 No 2.5mg Common Bonita Bonita 1-23 Spirit 00:00: - [facility] 00 [facility] Kenalog Kenalog 2020-11 No 40mg Common (Triamcinol (Triamcinol 1-23 S pirit one) one) 00:00: - [facility] 00 [facility] Bupivicaine Bupivicaine 2020-11 No 2.5mg Common Bonita Bonita 1-23 Spirit 00:00: - [facility] 00 [facility] Reji Kenalog 2020-11 No 40mg Common (Triamcinol (Triamcinol 1-23 S pirit one) one) 00:00: - [facility] 00 [facility] Bupivicaine Bupivicaine 2020-11 No 2.5mg Common Bonita Bonita 1-23 Spirit 00:00: - [facility] 00 [facility] Reji Kenalog 2020-11 No 40mg Common (Triamcinol (Triamcinol 1-23 S pirit one) one) 00:00: - [facility] 00 [facility] Bupivicaine Bupivicaine 2020-11 No Common Bonita Bonita 1-23 Spirit 00:00: - [facility] 00 [facility] Jeremyst. [facility] Kenlionel 2020-11 No 40mg Common (Triamcinol (Triamcinol 1-23 S pirit one) one) 00:00: - [facility]I 00 [facility] Nasacort Nasacort 2020-0 Yes Mau 1 spray in Common Allergy Allergy 07-28 Nance each Spirit 24HR 24HR 00:00: nostril - [facility]I 00 [facility] Reji Mendoza 2018-11 No 40mg Common (Triamcinol (Triamcinol 0-28 S pirit one) one) 00:00: - [facility]I 00 [facility] Reji Kenlionel 2018-11 No 40mg Common (Triamcinol (Triamcinol 0-28 S pirit one) one) 00:00: - [facility]I 00 [facility] Reji Kenlionel 2018-11 No 40mg Common (Triamcinol (Triamcinol 0-28 S pirit one) one) 00:00: - [facility]I 00 [facility] Reji Kenlionel 2018-11 No 40mg [facility] (Triamcinol (Triamcinol 0-28 S pirit one) one) 00:00: - [facility]I 00 [facility] Reji Kenlionel 2018-11 No 40mg Common (Triamcinol (Triamcinol 0-28 S pirit one) one) 00:00: - [facility]I 00 [facility] Reji Kenlionel 2018-11 No 40mg Common (Triamcinol (Triamcinol 0-28 S pirit one) one) 00:00: - [facility]I 00 [facility] Jeremyst. [facility] Reji 2018-11 No 40mg Common (Triamcinol (Triamcinol 0-28 S pirit one) one) 00:00: - CHI 00 [facility] Jeremyst. [facility] 2018-11 No 40mg Common (Triamcinol (Triamcinol 0-28 S pirit one) one) 00:00: - [facility]I 00 [facility] Jeremyst. [facility] Jeremyst. [facility] 2018-11 No 40mg Common (Triamcinol (Triamcinol 0-28 S pirit one) one) 00:00: - [facility] 00 [facility] No [facility] (Triamcinol (Triamcinol 0-28 S pirit one) one) 00:00: - CHI 00 [facility] 2018-11 No 40mg Common (Triamcinol (Triamcinol 0-28 S pirit one) one) 00:00: - CHI 00 [facility] 2018-11 No 40mg Common (Triamcinol (Triamcinol 0-28 S pirit one) one) 00:00: - [facility] 00 [facility] Zoloft Zoloft Yes Mau 1 tablet Commo n Nance [facility] Requip Requip Yes Mau 1 tablet Commo n Nance [facility] Simvastatin Simvastatin Yes Mau 1 tablet Common Nance in the Spirit evening [facility] Levothyroxi Levothyroxi Yes Mau 1 tablet Common ne Sodium ne Sodium Nance on an Spi rit empty - CHI stomach in [facility] Losartan Losartan Yes Mau 1 tablet C ommon Potassium Potassium Nance [facility] Celebrex Celebrex Yes Mau 1 capsule Common Nance with food [facility] CeleBREX CeleBREX No 1{capsu QD CeleBREX 200 MG 200 MG le_with 200 MG _food} Levothyroxi Levothyroxi No QD Levothyrox ne Sodium ne Sodium ine Sodium 88 MCG 88 MCG 88 MCG Losartan Losartan No Losartan Potassium Potassium Potassium 100 MG 100 MG 100 MG Sertraline Sertraline No Sertraline HCl 100 MG HCl 100 MG HCl 100 MG Simvastatin Simvastatin No Simvastati 40 MG 40 MG n 40 MG Requip 5 MG Requip 5 MG No 1{table BID Requip 5 t} MG CeleBREX CeleBREX No 1{capsu QD CeleBREX 200 MG 200 MG le_with 200 MG _food} Levothyroxi Levothyroxi No QD Levothyrox ne Sodium ne Sodium ine Sodium 88 MCG 88 MCG 88 MCG Sertraline Sertraline No Sertraline HCl 100 MG HCl 100 MG HCl 100 MG Simvastatin Simvastatin No Simvastati 40 MG 40 MG n 40 MG Requip 5 MG Requip 5 MG No 1{table BID Requip 5 t} MG Losartan Losartan No Losartan Potassium Potassium Potassium 100 MG 100 MG 100 MG CeleBREX CeleBREX No 1{capsu QD CeleBREX 200 MG 200 MG le_with 200 MG _food} Levothyroxi Levothyroxi No QD Levothyrox ne Sodium ne Sodium ine Sodium 88 MCG 88 MCG 88 MCG Sertraline Sertraline No Sertraline HCl 100 MG HCl 100 MG HCl 100 MG Simvastatin Simvastatin No Simvastati 40 MG 40 MG n 40 MG Requip 5 MG Requip 5 MG No 1{table BID Requip 5 t} MG Losartan Losartan No Losartan Potassium Potassium Potassium 100 MG 100 MG 100 MG CeleBREX CeleBREX No 1{capsu QD CeleBREX 200 MG 200 MG le_with 200 MG _food} Levothyroxi Levothyroxi No QD Levothyrox ne Sodium ne Sodium ine Sodium 88 MCG 88 MCG 88 MCG Requip 5 MG Requip 5 MG No 1{table BID Requip 5 t} MG Losartan Losartan No Losartan Potassium Potassium Potassium 100 MG 100 MG 100 MG Sertraline Sertraline No Sertraline HCl 100 MG HCl 100 MG HCl 100 MG Simvastatin Simvastatin No Simvastati 40 MG 40 MG n 40 MG Losartan Losartan No Losartan Potassium Potassium Potassium 100 MG 100 MG 100 MG Requip 5 MG Requip 5 MG No 1{table BID Requip 5 t} MG Levothyroxi Levothyroxi No QD Levothyrox ne Sodium ne Sodium ine Sodium 88 MCG 88 MCG 88 MCG Simvastatin Simvastatin No Simvastati 40 MG 40 MG n 40 MG Sertraline Sertraline No Sertraline HCl 100 MG HCl 100 MG HCl 100 MG CeleBREX CeleBREX No 1{capsu QD CeleBREX 200 MG 200 MG le_with 200 MG _food} Losartan Losartan No Losartan Potassium Potassium Potassium 100 MG 100 MG 100 MG Requip 5 MG Requip 5 MG No 1{table BID Requip 5 t} MG Levothyroxi Levothyroxi No QD Levothyrox ne Sodium ne Sodium ine Sodium 88 MCG 88 MCG 88 MCG Simvastatin Simvastatin No Simvastati 40 MG 40 MG n 40 MG Sertraline Sertraline No Sertraline HCl 100 MG HCl 100 MG HCl 100 MG CeleBREX CeleBREX No 1{capsu QD CeleBREX 200 MG 200 MG le_with 200 MG _food} Losartan Losartan No Losartan Potassium Potassium Potassium 100 MG 100 MG 100 MG CeleBREX CeleBREX No 1{capsu QD CeleBREX 200 MG 200 MG le_with 200 MG _food} Requip 5 MG Requip 5 MG No 1{table BID Requip 5 t} MG Sertraline Sertraline No Sertraline HCl 100 MG HCl 100 MG HCl 100 MG Simvastatin Simvastatin No Simvastati 40 MG 40 MG n 40 MG Levothyroxi Levothyroxi No QD Levothyrox ne Sodium ne Sodium ine Sodium 88 MCG 88 MCG 88 MCG Losartan Losartan No Losartan Potassium Potassium Potassium 100 MG 100 MG 100 MG CeleBREX CeleBREX No 1{capsu QD CeleBREX 200 MG 200 MG le_with 200 MG _food} Simvastatin Simvastatin No Simvastati 40 MG 40 MG n 40 MG Requip 5 MG Requip 5 MG No 1{table BID Requip 5 t} MG Sertraline Sertraline No Sertraline HCl 100 MG HCl 100 MG HCl 100 MG Levothyroxi Levothyroxi No QD Levothyrox ne Sodium ne Sodium ine Sodium 88 MCG 88 MCG 88 MCG Sertraline Sertraline No Sertraline HCl 100 MG HCl 100 MG HCl 100 MG CeleBREX CeleBREX No 1{capsu QD CeleBREX 200 MG 200 MG le_with 200 MG _food} Levothyroxi Levothyroxi No QD Levothyrox ne Sodium ne Sodium ine Sodium 88 MCG 88 MCG 88 MCG Simvastatin Simvastatin No Simvastati 40 MG 40 MG n 40 MG Requip 5 MG Requip 5 MG No 1{table BID Requip 5 t} MG Losartan Losartan No Losartan Potassium Potassium Potassium 100 MG 100 MG 100 MG Levothyroxi Levothyroxi No QD Levothyrox ne Sodium ne Sodium ine Sodium 88 MCG 88 MCG 88 MCG Requip 5 MG Requip 5 MG No 1{table BID Requip 5 t} MG Losartan Losartan No Losartan Potassium Potassium Potassium 100 MG 100 MG 100 MG CeleBREX CeleBREX No 1{capsu QD CeleBREX 200 MG 200 MG le_with 200 MG _food} Simvastatin Simvastatin No Simvastati 40 MG 40 MG n 40 MG Sertraline Sertraline No Sertraline HCl 100 MG HCl 100 MG HCl 100 MG Levothyroxi Levothyroxi No QD Levothyrox ne Sodium ne Sodium ine Sodium 88 MCG 88 MCG 88 MCG Requip 5 MG Requip 5 MG No 1{table BID Requip 5 t} MG Losartan Losartan No Losartan Potassium Potassium Potassium 100 MG 100 MG 100 MG CeleBREX CeleBREX No 1{capsu QD CeleBREX 200 MG 200 MG le_with 200 MG _food} Simvastatin Simvastatin No Simvastati 40 MG 40 MG n 40 MG Sertraline Sertraline No Sertraline HCl 100 MG HCl 100 MG HCl 100 MG Losartan Losartan No Losartan Potassium Potassium Potassium 100 MG 100 MG 100 MG Sertraline Sertraline No Sertraline HCl 100 MG HCl 100 MG HCl 100 MG CeleBREX CeleBREX No 1{capsu QD CeleBREX 200 MG 200 MG le_with 200 MG _food} Levothyroxi Levothyroxi No QD Levothyrox ne Sodium ne Sodium ine Sodium 88 MCG 88 MCG 88 MCG Simvastatin Simvastatin No Simvastati 40 MG 40 MG n 40 MG Requip 5 MG Requip 5 MG No 1{table BID Requip 5 t} MG Levothyroxi Levothyroxi No QD Levothyrox ne Sodium ne Sodium ine Sodium 88 MCG 88 MCG 88 MCG Sertraline Sertraline No Sertraline HCl 100 MG HCl 100 MG HCl 100 MG CeleBREX CeleBREX No 1{capsu QD CeleBREX 200 MG 200 MG le_with 200 MG _food} Simvastatin Simvastatin No Simvastati 40 MG 40 MG n 40 MG Requip 5 MG Requip 5 MG No 1{table BID Requip 5 t} MG Losartan Losartan No Losartan Potassium Potassium Potassium 100 MG 100 MG 100 MG Levothyroxi Levothyroxi No QD Levothyrox ne Sodium ne Sodium ine Sodium 88 MCG 88 MCG 88 MCG Sertraline Sertraline No Sertraline HCl 100 MG HCl 100 MG HCl 100 MG CeleBREX CeleBREX No 1{capsu QD CeleBREX 200 MG 200 MG le_with 200 MG _food} Simvastatin Simvastatin No Simvastati 40 MG 40 MG n 40 MG Requip 5 MG Requip 5 MG No 1{table BID Requip 5 t} MG Losartan Losartan No Losartan Potassium Potassium Potassium 100 MG 100 MG 100 MG Immunizations Ordered Immunization Filled Immunization Date Status Commen ts Source Name Name FluAD FluAD 2019-08-20 Completed [facility] 09[facility]23[facility] - [facility] FluAD FluAD 2019-08-20 Completed [facility] 09:23:00 - [facility] FluAD FluAD 2019-08-20 Completed [facility] 09:23:00 - [facility] FluAD FluAD 2019-08-20 Completed [facility] 09:23:00 - [facility] FluAD FluAD 2019-08-20 Completed [facility] 09:23:00 - [facility] FluAD FluAD 2019-08-20 Completed [facility] 09:23:00 - [facility] FluAD FluAD 2019-08-20 Completed [facility] 09:23:00 - [facility] FluAD FluAD 2019-08-20 Completed [facility] 09:23:00 - [facility] FluAD FluAD 2019-08-20 Completed [facility] 09:23:00 - [facility] FluAD FluAD 2019-08-20 Completed [facility] 09:23:00 - [facility] FluAD FluAD 2019-08-20 Completed [facility] 09:23:00 - [facility] FluAD FluAD 2019-08-20 Completed [facility] 09:23:00 - [facility] FluAD FluAD 2019-08-20 Completed [facility] 09:23:00 - [facility] FluAD FluAD 2019-08-20 Completed [facility] 09:23:00 - [facility] FluAD FluAD 2019-08-20 Completed [facility] 00:00:00 - [facility] PNEUMAVAX 23 PNEUMAVAX 2019-03-21 Completed Common Spi rit 14:52:00 - [facility] PNEUMAVAX 23 PNEUMAVAX 2019-03-21 Completed Common Spi rit 14:52:00 - [facility] PNEUMAVAX 23 PNEUMAVAX 2019-03-21 Completed Common Spi rit 14:52:00 - [facility] PNEUMAVAX 23 PNEUMAVAX 2019-03-21 Completed [facility] Spi rit 14:52:00 [facility] PNEUMAVAX 23 PNEUMAVAX 2019-03-21 Completed [facility] Spi rit 14:52:00 [facility] PNEUMAVAX 23 PNEUMAVAX 23 2019-03-21 Completed [facility] Spi rit 14:52:00 [facility] PNEUMAVAX 23 PNEUMAVAX 2019-03-21 Completed [facility] Spi rit 14:52:00 [facility] PNEUMAVAX 23 PNEUMAVAX 2019-03-21 Completed [facility] Spi rit 14:52:00 [facility] PNEUMAVAX 23 PNEUMAVAX 2019-03-21 Completed Common Spi rit 14:52:00 [facility] PNEUMAVAX 23 PNEUMAVAX 2019-03-21 Completed [facility] Spi rit 14:52:00 [facility] PNEUMAVAX 23 PNEUMAVAX 2019-03-21 Completed [facility] Spi rit 14:52:00 [facility] PNEUMAVAX 23 PNEUMAVAX 2019-03-21 Completed [facility] Spi rit 14:52:00 [facility] PNEUMAVAX 23 PNEUMAVAX 2019-03-21 Completed [facility]pi rit 14:52:00 [facility] PNEUMAVAX 23 PNEUMAVAX 2019-03-21 Completed [facility] Spi rit 14:52:00 [facility] PNEUMAVAX 23 PNEUMAVAX 2019-03-21 Completed [facility] Spi rit 00:00:00 [facility] Vital Signs Vital Name Observation Time Observation Value Comments Source height 2022-12-12 08:00:00 75 [in_i] [facility] weight 2022-12-12 08:00:00 261.2 [lb_av] [facility] temperature 2022-12-12 08:00:00 98.2 [degF] [facility] bmi 2022-12-12 08:00:00 32.64 kg/m2 [facility] blood pressure 2022-12-12 08:00:00 130 mm[Hg] [facility] - systolic [facility] blood pressure 2022-12-12 08:00:00 81 mm[Hg] [facility] Systolic blood 2022-07-17 05:00:00 161 mm[Hg] [facility] Diastolic blood 2022-07-17 05:00:00 97 mm[Hg] [facility] Heart rate 2022-07-17 05:00:00 89 /min [facility] Respiratory rate 2022-07-17 05:00:00 14 /min [facility] Oxygen saturation in 2022-07-17 05:00:00 94 /min [facility] blood by [facility] Pulse oximetry Branch Body temperature 2022-07-17 03:36:00 36.5 Yun [facility] Body height 2022-07-17 03:36:00 190.5 cm [facility] Body weight 2022-07-17 03:36:00 117.935 kg [facility] BMI 2022-07-17 03:36:00 32.50 kg/m2 [facility] height 2022-07-08 08:15:00 75 [in_i] [facility] weight 2022-07-08 08:15:00 260 [lb_av] [facility] temperature 2022-07-08 08:15:00 97.6 [degF] [facility] bmi 2022-07-08 08:15:00 32.49 kg/m2 [facility] blood pressure 2022-07-08 08:15:00 132 mm[Hg] [facility] blood pressure 2022-07-08 08:15:00 84 mm[Hg] [facility] height 2022-06-07 10:00:00 75 [in_i] [facility] weight 2022-06-07 10:00:00 260 [lb_av] [facility] temperature 2022-06-07 10:00:00 97.6 [degF] [facility] bmi 2022-06-07 10:00:00 32.49 kg/m2 [facility] blood pressure 2022-06-07 10:00:00 136 mm[Hg] [facility] systolic [facility] blood pressure 2022-06-07 10:00:00 86 mm[Hg] [facility] height 2022-04-11 09:30:00 75 [in_i] [facility] weight 2022-04-11 09:30:00 260 [lb_av] [facility] temperature 2022-04-11 09:30:00 97.7 [degF] [facility] 2022-04-11 09:30:00 32.49 kg/m2 [facility] blood pressure 2022-04-11 09:30:00 136 mm[Hg] [facility] blood pressure 2022-04-11 09:30:00 78 mm[Hg] [facility] height 2022-03-10 09:00:00 75 [in_i] [facility] weight 2022-03-10 09:00:00 258 [lb_av] [facility] temperature 2022-03-10 09:00:00 97.2 [degF] [facility] bmi 2022-03-10 09:00:00 32.24 kg/m2 [facility] blood pressure 2022-03-10 09:00:00 114 mm[Hg] [facility] blood pressure 2022-03-10 09:00:00 68 mm[Hg] [facility] height 2022-02-10 08:30:00 75 [in_i] [facility] weight 2022-02-10 08:30:00 258 [lb_av] [facility] temperature 2022-02-10 08:30:00 97.5 [degF] [facility] bmi 2022-02-10 08:30:00 32.24 kg/m2 [facility] blood pressure 2022-02-10 08:30:00 122 mm[Hg] [facility] blood pressure 2022-02-10 08:30:00 76 mm[Hg] [facility] height 2021-12-28 11:00:00 75 [in_i] [facility] weight 2021-12-28 11:00:00 258 [lb_av] [facility] temperature 2021-12-28 11:00:00 98.0 [degF] [facility] 2021-12-28 11:00:00 32.24 kg/m2 [facility] blood pressure 2021-12-28 11:00:00 124 mm[Hg] [facility] blood pressure 2021-12-28 11:00:00 72 mm[Hg] [facility] height 2021-10-19 08:00:00 75 [in_i] [facility] weight 2021-10-19 08:00:00 260 [lb_av] [facility] bmi 2021-10-19 08:00:00 32.49 kg/m2 [facility] blood pressure 2021-10-19 08:00:00 134 mm[Hg] [facility] systolic [facility] blood pressure 2021-10-19 08:00:00 90 mm[Hg] [facility] - diastolic [facility] Procedures Procedure Date / Time Performing Clinician Source Performed EKG-12 LEAD 2022-07-17 05:11:59 Camilo Denson [facility] TROPONIN I 2022-07-17 03:41:00 Camilo Denson [facility] THYROID STIMULATING 2022-07-17 03:41:[address] [facility] H[facility] COMP. METABOLIC PANEL 2022-07-17 03:41:00 Camilo Denson [facility] ([id number]) [facility] CBC WITH DIFF 2022-07-17 03:41:00 Camilo Denson [facility] URINALYSIS 2022-07-17 03:41:00 Camilo Denson [facility] LACTIC ACID WHOLE BLOOD 2022-07-17 03:41:00 Camilo Denson [facility] COVID-19 (ID NOW RAPID 2022-07-17 03:41:00 Camilo Denson [facility] TESTING) Medical Branch Encounters Start End Encounter Admission Attending Care Care Encounter Source Date/Time Date/Time Type Type Clinicians Facility Department ID 2022-12-12 Outpatient Nance, STLMLC STLMLC [id number] Common 12:43:00 Mau [address] [facility] 2022-12-06 Outpatient Nance, STLMLC STLMLC [id number] Common 09:41:01 Mau [facility] 2022-07-08 Outpatient Nance, STLMLC STLMLC [id number] Common 08:05:00 Mau [facility] 2022-04-14 Outpatient Nance, STLMLC STLMLC [id number] Common 12:49:00 Mau [facility] 2022-02-25 Outpatient Nance, STLMLC STLMLC [id number] Common 12:41:00 Mau [facility] 2022-02-10 Outpatient Nance, STLMLC STLMLC [id number] Common 08:34:01 Mau [facility] 2022-02-09 Outpatient Nance, STLMLC STLMLC [id number] Common 11:55:00 Mau [facility] 2021-12-28 Outpatient Nance, STLMLC STLC [id number] Common 07:57:01 Mau [facility] 2021-12-22 Outpatient Nance, STLMLC STLC [id number] Common 14:14:40 Amu [facility] 2021-12-22 Outpatient Nance, STLMLC STLMLC [id number] Common 11:32:10 Mau [address] [facility] 2021-12-22 Outpatient Nance, STLMLC STLMLC [id number] Common 11:31:03 Mau [address] [facility] 2021-12-22 Outpatient Nance, STLMLC STLMLC [id number] Common 11:17:40 Mau [address] [facility] 2021-12-22 Outpatient Nance, STLMLC STLMLC [id number] Common 11:17:19 Mau [address]78[address] [facility] 2021-12-22 Outpatient Nance, STLMLC STLC [id number] Common 11:16:49 Mau [address] [facility] 2022-12-12 2022-12-12 OFFICE STLMLC STLMLC [id number] Co mmon 00:00:00 00:00:00 VISIT EST Spir it PT LEVEL 3 - [facility] 2022-07-16 2022-07-17 Emergency X YULIET DENSON ERT [id number] Univers 22:39:00 00:22:00 CAMILO segovia [facility] 2022-07-16 2022-07-17 Emergency Shae Liao [facility] [id number] Univers 22:39:00 00:22:00 Camilo Denson HOMER [id number] luca [facility] [id number] [facility] [id number] [place] [address] [facility] 2022-07-08 2022-07-08 OFFICE STLMLC STLMLC [id number] Co mmon 00:00:00 00:00:00 VISIT Spirit ESTAB PT - CHI LEVEL 4 [facility] 2022-06-072022-06-07 OFFICE STLMLC STLMLC [id number] Co mmon 00:00:00 00:00:00 VISIT EST Spir it PT LEVEL 3 - [facility] 2022-04-11 2022-04-11 NON-BILLAB STLMLC STLMLC [id number] Common 00:00:00 00:00:00 LE VISIT Spiri t [facility] 2022-03-10 2022-03-10 Postop STLMLC STLMLC [id number] Co mmon 00:00:00 00:00:00 visit [facility] 2022-03-10 2022-03-10 (TEL) STLMLC STLMLC [id number] Co mmon 00:00:00 00:00:00 [facility] 2022-02-28 2022-02-28 (TEL) STLMLC STLMLC [id number] Co mmon 00:00:00 00:00:00 [facility] 2022-02-24 2022-02-24 (TEL) STLMLC STLMLC [id number] Co mmon 00:00:00 00:00:00 [facility] 2022-02-21 2022-02-21 (TEL) STLMLC STLMLC [id number] Co mmon 00:00:00 00:00:00 [facility] 2022-02-10 2022-02-10 OFFICE STLMLC STLMLC [id number] Co mmon 00:00:00 00:00:00 VISIT [facility] PT - CHI LEVEL 4 [facility] 2022-01-31 2022-01-31 (TEL) STLMLC STLMLC [id number] Co mmon 00:00:00 00:00:00 [facility] 2021-12-28 2021-12-28 OFFICE STLMLC STLMLC [id number] Co mmon 00:00:00 00:00:00 VISIT [facility] PT - CHI LEVEL 4 [facility] 2021-12-28 2021-12-28 (TEL) STLMLC STLMLC [id number] Co mmon 00:00:00 00:00:00 [facility] 2021-10-19 2021-10-19 OFFICE [facility] [id number] Co mmon 00:00:00 00:00:00 VISIT NEW Spir it PT LEVEL 4 [facility] 2020-08-24 2020-08-24 Outpatient [facility] [id number] Common 00:00:00 00:00:00 [facility] 2020-07-28 2020-07-28 [facility] [id number] Common 09:20:00 09:20:[address] [facility] [facility] 2020-06-15 2020-06-15 [facility] [id number] Common 15:00:00 15:00:[address] [facility] 2020-06-09 2020-06-09 [facility] [id number] Common 08:00:00 08:00:00 t [facility] [address] [facility] Road [facility] 2020-06-08 2020-06-08 [facility] [id number] Common 08:31:00 08:31:[address] [facility] 2020-04-13 2020-04-13 [facility] [id number] Common 11:20:00 11:20:00 t [facility] [address] [facility] Road [facility] 2020-04-13 2020-04-13 [facility] [id number] Common 08:41:00 08:41:[address] [facility] 2020-03-06 2020-03-06 [facility] [id number] Common 09:45:00 09:45:[address] [facility] 2019-12-05 2019-12-05 [facility] [id number] Common 08:15:00 08:15:[address] [facility] 2019-11-28 2019-11-28 [facility] [id number] Common 16:06:00 16:06:[address] [facility] 2019-10-04 2019-10-04 [facility] [id number] Common 09:33:00 09:33:[address] [facility] 2019-09-23 2019-09-23 [facility] [id number] Common 15:00:00 15:00:[address] [facility] 2019-08-20 2019-08-20 [facility] [id number] Common 09:15:00 09:15:[address] [facility] 2019-06-05 2019-06-05 [facility] [id number] Common 11:15:00 11:15:[address] [facility] 2019-05-21 2019-05-21 [facility] [id number] Common 08:45:00 08:45:[address] [facility] 2019-03-21 2019-03-21 [facility] [id number] Common 13:00:00 13:00:[address] [facility] 2019-02-13 2019-02-13 [facility] [id number] Common 13:00:00 13:00:[address] [facility] Results Test Description Test Time Test Comments Results Result Comments Source THYROID STIMULATING HORMONE 2022-07-17 05:06:15 Test Item Value Reference Range Interpretation Comme nts TSH (test code = 1437474786) See_Comment H [Automated message] The system which generated this result transmitted ref erence range: 0.45 - 4.70 mIU /L. The reference range was not u sed to interpret this result as normal/abnormal. Lab Interpretation (test code Abnormal = 29068-2) [id number] Test Item Value Reference Interpretation Comments Range TROPONIN I (test 0.005 ng/mL See_Comment [Automated code = 9852521835) message] The system which generated this result [...] biotin. Lab Interpretation Normal (test code = 57656-6) [facility]. METABOLIC PANEL (40922)2022-07-17 04:35:55 Test Item Value Reference Range Interpretation Comments NA (test code = 140 mmol/L 135-145 7006944808) K (test code = 4.3 mmol/L 3.5-5 1305984912) CL (test code = 110 mmol/L 98-108 H 9647377259) CO2 TOTAL (test code = 22 mmol/L 23-31 L 7822245765) AGAP (test code = 2-16 2332255407) BUN (test code = 26 mg/dL 7-23 H 9150123943) GLUCOSE (test code = 111 mg/dL 70-110 H 5028849577) CREATININE (test code = 1.15 mg/dL 0.6-1.25 2005853684) TOTAL BILI (test code = 0.2 mg/dL 0.1-1.5 1376213493) CALCIUM (test code = 8.9 mg/dL 8.6-10.6 7687295699) T PROTEIN (test code = 6.2 g/dL 6.3-8.2 L 3158091077) ALBUMIN (test code = 4.2 g/dL 3.5-5 2371406399) ALK PHOS (test code = 94 U/L 34-122 9856952975) ALTv (test code = 20 U/L 5-50 1742-6) AST(SGOT) (test code = 24 U/L 13-40 7316671462) eGFR (test code = mL/min/1.73m2 3413849294) BUCK (test code = BUCK) Association of [...] tests). Lab Interpretation Abnormal (test code = 52986-1) [facility] WITH [id number] 03:55:33 Test Item Value Reference Range Interpretation Comments WBC (test code = See_Comment H [Automated 1401-2) message] The sy stem which generated this result transmitted reference range : 4.20 - 10.70 10*3/?L. The reference range was not used to interpret this result as normal/abnormal . RBC (test code = See_Comment [Automated 889-8) message] The sy stem which generated this [...] RDW-SD (test code = 43.9 fL 38.5-51.6 45645-5) RDW-CV (test code = 13.7 % 12.1-15.4 788-0) PLT (test code = See_Comment [Automated 777-3) message] The sy stem which generated this result transmitted reference range : 150 - 328 10*3/ ?L. The reference r olena was not used to interpret this result as normal/abnormal . MPV (test code = 10.0 fL 9.8-13 13427-2) NRBC/100 WBC (test See_Comment [Automat ed code = 9846388476) message] The system which generated this result transmitted reference range : 0.0 - 10.0 /100 WBCs. The refer ence range was not u sed to interpret th is result as normal/abnormal . NRBC x10^3 (test code See_Comment [Auto mated = 0297308966) message] The s ystem which generated this result transmitted reference range : 10*3/?L. The reference range was not used to interpret this result as normal/abnormal . GRAN MAT (NEUT) % 61.0 % (test code = 770-8) IMM GRAN % (test code 0.80 % = 8486030627) LYMPH % (test code = 25.1 % 736-9) MONO % (test code = 8.0 % 5905-5) EOS % (test code = 4.4 % 713-8) BASO % (test code = 0.7 % 706-2) GRAN MAT x10^3(ANC) 6.94 10*3/uL 1.99-6.95 (test code = 1250052843) IMM GRAN x10^3 (test 0.09 10*3/uL 0-0.06 H code = 1764735106) LYMPH x10^3 (test code 2.85 10*3/uL 1.09-3.23 = 731-0) MONO x10^3 (test code 0.91 10*3/uL 0.36-1.02 = 742-7) EOS x10^3 (test code = 0.50 10*3/uL 0.06-0.53 711-2) BASO x10^3 (test code 0.08 10*3/uL 0.01-0.09 = 704-7) Lab Interpretation Abnormal (test code = 70370-9) [facility]"
[2023-07-18] MEDS ORDERED: OXYMETAZOLINE HCL 0.05% 15ML NAS ONE (21:34)
--- NOTE | 2023-07-18 21:51 | ER ---
Nurse's Notes [facility] Name: Brijesh Reveles Age: 78 yrs Sex: Male : 1945 Arrival Date: 07/18/2023 Time: 21:00 Bed 5 Private MD: Diagnosis: Epistaxis Presentation: 07/18 21:07 Chief complaint: EMS states: pt had sinus surgery about 3 weeks ago and was cleaning kd3 his nose today and it started to bleed. Pt was bleeding a lot on the scene. Bleeding is more controlled now. Pt denies use of blood thinners. Coronavirus screen: Vaccine status: Patient reports receiving the 2nd dose of the covid vaccine. Ebola Screen: No symptoms or risks identified at this time. Initial Sepsis Screen: Does the patient meet any 2 criteria? No. Patient's initial sepsis screen is negative. Does the patient have a suspected source of infection? No. Patient's initial sepsis screen is negative. Risk Assessment: Do you want to hurt yourself or someone else? Patient reports no desire to harm self or others. Onset of symptoms was July 18, 2023. 21:07 Method Of Arrival: EMS: [facility] kd3 21:07 Acuity: DIVYA 3 kd3 Triage Assessment: 21:09 General: Appears uncomfortable, Behavior is calm, cooperative. Pain: Denies pain. kd3 Neuro: Level of Consciousness is awake, alert, obeys commands, Oriented to person, place, time, situation. Cardiovascular: Patient's skin is warm and dry. 21:09 EENT: Nares with bleeding noted. kd3 Historical: - PMHx: 21:09 ADD/ADHD; Depression; Hypertension; Hyperlipidemia; Arthritis; Hypothyroidism; kd3 - Immunization history:: Adult Immunizations up to date. - Social history:: Smoking status: Patient denies any tobacco usage or history of. Screenin:00 [facility] ED Fall Risk Assessment (Adult) History of falling in the last 3 months, kd3 including since admission No falls in past 3 months (0 pts) Confusion or Disorientation No (0 pts) Intoxicated or Sedated No (0 pts) Impaired Gait No (0 pts) Mobility Assist Device Used No (0 pt) Altered Elimination No (0 pt) Score/Fall Risk Level 0 - 2 = Low Risk Maintained a safe environment. Abuse screen: Denies threats or abuse. Denies injuries from another. Nutritional screening: No deficits noted. Tuberculosis screening: No symptoms or risk factors identified. Vital Signs: 21:07 BP 123 / 72; Pulse 96; Resp 16; Temp 98.2(TE); Pulse Ox 98% on R/A; Weight 113.4 kg; kd3 Height 6 ft. 4 in. ; 21:07 Body Mass Index 30.43 (113.40 kg, 193.04 cm) kd3 ED Course: 21:07 Patient arrived in ED. rv1 21:07 Joslyn Gilliam, RN is Primary Nurse. kd3 21:08 Cortez Nance MD is Attending Physician. sp3 21:09 Triage completed. kd3 21:09 Arm band placed on right wrist. kd3 22:00 No provider procedures requiring assistance completed. Patient did not have IV access kd3 during this emergency room visit. 22:01 Patient has correct armband on for positive identification. Provided Education on: . kd3 Administered Medications: 21:27 Drug: Oxymetazoline Intranasal Drops (0.05 %) 1 sprays Route: Intranasal; Site: both kd3 nares; 22:01 Follow up: Response: No adverse reaction kd3 Medication: 22:01 VIS not applicable for this client. kd3 Outcome: 21:50 Discharge ordered by . sp3 22:00 Discharged to home ambulatory, with family. kd3 22:00 Condition: stable 22:00 Discharge instructions given to patient, family, Instructed on discharge instructions, follow up and referral plans. Demonstrated understanding of instructions, follow-up care. 22:01 Patient left the ED. kd3 Signatures: Cortez Nanec MD MD sp3 Joslyn Gilliam, RN RN kd3 Ivette Porter rv1
--- NOTE | 2023-07-18 21:51 | EDPHYS ---
Physician Documentation [facility] Name: Brijesh Reveles Age: 78 yrs Sex: Male : 1945 Arrival Date: 07/18/2023 Time: 21:00 Bed 5 Private MD: ED Physician Cortez Nacne HPI: 07/18 21:21 This 78 yrs old Male presents to ER via EMS with complaints of Nose Bleed. sp3 21:21 78-year-old male with a history of hypertension, hyperlipidemia, ADHD with recent sp3 surgery by Dr. Breaux on bilateral nasal nostrils for polyp removal presents with chief complaint of right-sided epistaxis after blowing his nose hard. He was doing the salt rinses and subsequently blew his nose and started bleeding. Bleeding has been controlled with pressure and gauze currently. He denies any nausea, significant blood ingestion, vomiting, diarrhea, bleeding elsewhere, headache, neck pain, shortness of breath, chest pain, abdominal pain, rash, or any other signs or symptoms on ROS at this time. Patient is not on any blood thinners or antiplatelet agents.. Historical: - PMHx: 21:09 ADD/ADHD; Depression; Hypertension; Hyperlipidemia; Arthritis; Hypothyroidism; kd3 - Immunization history:: Adult Immunizations up to date. - Social history:: Smoking status: Patient denies any tobacco usage or history of. ROS: 21:25 Constitutional: Negative for fever, chills, and weight loss, Eyes: Negative for injury, sp3 pain, redness, and discharge, Neck: Negative for injury, pain, and swelling, Cardiovascular: Negative for chest pain, palpitations, and edema, Respiratory: Negative for shortness of breath, cough, wheezing, and pleuritic chest pain, Abdomen/GI: Negative for abdominal pain, nausea, vomiting, diarrhea, and constipation, Back: Negative for injury and pain, MS/Extremity: Negative for injury and deformity, Skin: Negative for injury, rash, and discoloration, Neuro: Negative for headache, weakness, numbness, tingling, and seizure, Psych: Negative for depression, anxiety, suicide ideation, homicidal ideation, and hallucinations, Allergy/Immunology: Negative for hives, rash, and allergies. 21:25 All other systems are negative. Exam: 21:26 Constitutional: This is a well developed, well nourished patient who is awake, alert, sp3 and in no acute distress. Head/Face: Normocephalic, atraumatic. Eyes: Pupils equal round and reactive to light, extra-ocular motions intact. Lids and lashes normal. Conjunctiva and sclera are non-icteric and not injected. Cornea within normal limits. Periorbital areas with no swelling, redness, or edema. Neck: Trachea midline, no thyromegaly or masses palpated, and no cervical lymphadenopathy. Supple, full range of motion without nuchal rigidity, or vertebral point tenderness. No Meningismus. Chest/axilla: Normal chest wall appearance and motion. Nontender with no deformity. No lesions are appreciated. Cardiovascular: Regular rate and rhythm with a normal S1 and S2. No gallops, murmurs, or rubs. Normal PMI, no JVD. No pulse deficits. Respiratory: Lungs have equal breath sounds bilaterally, clear to auscultation and percussion. No rales, rhonchi or wheezes noted. No increased work of breathing, no retractions or nasal flaring. Abdomen/GI: Soft, non-tender, with normal bowel sounds. No distension or tympany. No guarding or rebound. No evidence of tenderness throughout. Skin: Warm, dry with normal turgor. Normal color with no rashes, no lesions, and no evidence of cellulitis. MS/ Extremity: Pulses equal, no cyanosis. Neurovascular intact. Full, normal range of motion. Neuro: Awake and alert, GCS 15, oriented to person, place, time, and situation. Cranial nerves II-XII grossly intact. Motor strength 5/5 in all extremities. Sensory grossly intact. Cerebellar exam normal. Normal gait. Psych: Awake, alert, with orientation to person, place and time. Behavior, mood, and affect are within normal limits. 21:26 ENT: Patient has fresh clots bilateral nostrils.. Vital Signs: 21:07 BP 123 / 72; Pulse 96; Resp 16; Temp 98.2(TE); Pulse Ox 98% on R/A; Weight 113.4 kg; kd3 Height 6 ft. 4 in. ; 21:07 Body Mass Index 30.43 (113.40 kg, 193.04 cm) kd3 MDM: 21:11 Patient medically screened. sp3 21:26 Data reviewed: vital signs, nurses notes. ED course: 78-year-old male with epistaxis sp3 status post surgery from several weeks ago. We will start with Afrin no spray bilaterally and direct pressure and if resolves, no further intervention will be needed. Further balloon tamponade will be considered if indicated.. 21:49 ED course: After 2 rounds of Afrin no spray to bilateral nostrils, patient's bleeding sp3 is now stopped. We will wait 15 minutes to make sure there is no recurrence and safely discharge him home.. Administered Medications: 21:27 Drug: Oxymetazoline Intranasal Drops (0.05 %) 1 sprays Route: Intranasal; Site: both kd3 nares; 22:01 Follow up: Response: No adverse reaction kd3 Disposition Summary: 07/18/23 21:50 Discharge Ordered Location: Home sp3 Condition: Stable sp3 Diagnosis - Epistaxis sp3 Followup: sp3 - With: Private Physician - When: Upon discharge from the Emergency Department - Reason: Continuance of care Discharge Instructions: - Discharge Summary Sheet sp3 - Nosebleed, Adult sp3 Forms: - Medication Reconciliation Form sp3 - Thank You Letter sp3 - Antibiotic Education sp3 - Prescription Opioid Use sp3 - Patient Portal Instructions sp3 - Leadership Thank You Letter sp3 Signatures: Cortez Nance MD MD sp3 Joslyn Gilliam RN RN kd3
[2023-07-18 23:03] VITALS: BP 123/72; TEMP 98.2; O2SAT 98
== END 2023-07-18 22:01 | disposition home or self-care (01) ==
LOC: ER 21:00
DX: R04.0 Epistaxis (principal); I10 Essential (primary) hypertension
CPT/HCPCS: 99283

== ENCOUNTER 2024-01-10 16:08 | Observation (INO) | payer OTHER ==
--- OUTSIDE RECORDS SUMMARY | 2024-01-10 16:14 | XMS REPORT | Continuity of Care Document ---
Author Name Unknown Address [address] [facility] [address] [place] [address] [facility] thconnect Address [address] [facility] [address] [place] [address] Care Team Providers Care Interactive Developer Name Role Phone PCP, PATIENT DOES NOT HAVE A Primary Care Physic robert Unavailable Mau Nance Attending Clinician Unavailable JEANNETTE DENSON Attending Clinician Unavailable Shae Liao DO Attending Clinician Jeannette Denson MD Attending Clinician [phone] Payers Payer Name Policy Type Policy Number Effective Date Expirati on Date Source MEDICARE PART A \\T\\ [id number] 2012 00:00:00 [employer] INDEMNITY [id number] 2018 00:00:00 [employer] 53 [id number] 2002 00:00:00 [facility] AETNA 53 [id number] [facility] MEDICARE NOVITAS MB [id number] 2012 00:00:00 [facility] Problems Condition Name Condition Details Condition Category Status Onset Date Resolution Date Last Treatment Date Treating Clinician Comments Source No known active problems No known active problems Disease [facility] [id number] Status post total knee replacemen t, left Problem [facility] [id number] Rotator cuff arthropath y of right shoulder Problem [facility] Rotator cuff arthropath y of left shoulder Rotator cuff arthropath y, left Problem [facility] [id number] Primary osteoarthr itis of right elbow Problem [facility] [id number] RLS (restless legs syndrome) Problem [facility] [id number] Nocturia Problem [facility] n [facility] Essential hypertensi on Benign essential HTN Problem Common [facility] Prediabete s Prediabete s Problem [facility] Anxiety Anxiety Problem [facility] Hypothyroi dism Hypothyroi dism Problem [facility] 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 H/O stroke without residual deficits Problem Common [facility] 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 Problem [facility] [id number] Medicare annual wellness visit, initial Problem [facility] [id number] Allergic rhinitis, unspecifie d seasonalit y, unspecifie d trigger Problem [facility] Obstructiv e sleep apnea Obstructiv e sleep apnea Problem [facility] [id number] Primary osteoarthr itis of left knee Problem [facility] Mixed hyperlipid emia Hyperlipid emia, mixed Problem [facility] [id number] Constipati on, unspecifie d constipati on type Problem [facility] [id number] Current mild episode of major depressive disorder without prior episode Problem [facility] [id number] Noncomplia nce with dietary restrictio n Problem [facility] [id number] Acute otitis externa of left ear, unspecifie d type Problem [facility] Allergies, Adverse Reactions, Alerts Allergy Name Allergy Type Status Severity Reaction(s) Onset Date Inactive Date Treating Clinician Comments Source NO KNOWN ALLERGIE S Drug Class Active [facility] Social History Social Habit Start Date Stop Date Quantity Comments Source History of Tobacco Use [facility] Sex Assigned At [facility] Exposure to SARS-CoV-2 (event) 2022-07-06 00:00:00 2022-07-16 22:33:00 Not sure [facility] Smoking Status Start Date Stop Date Source Tobacco smoking consumption unknown [facility] Never Smoker [facility] Medications Ordered Medication Name Filled Medication Name Start Date Stop Date Current Medication? Ordering Clinician Indication Dosage Frequency Signature (SIG) Comments Components Source rOPINIRole 0.5 mg tablet 07-16 22:56: 16 Yes .5mg Take 0.5 mg by mouth in the morning and 0.5 mg in the evening. [facility] atorvastati n 40 mg tablet 07-16 22:56: 16 Yes 40mg Take 40 mg by mouth in the morning. [facility] tamsulosin HCl (TAMSULOSIN ORAL) 07-16 22:56: 16 Yes 2.4mg Take 2.4 mg by mouth daily. [facility] SERTraline 100 mg tablet 07-16 22:56: 16 Yes 100mg Take 100 mg by mouth in the morning. [facility] losartan 100 mg tablet 07-16 22:56: 16 Yes 100mg Take 100 mg by mouth in the morning. [facility] levothyroxi ne sodium (LEVOTHYROX INE ORAL) 07-16 22:56: 16 Yes .088mg Take 0.088 mg by mouth daily. [facility] HYDROcodone -Acetaminop hen 5-325 MG HYDROcodone -Acetaminop hen 5-325 MG 03-10 00:00: 00 No 1{table t_as_ne eded} HYDROcodon e-Acetamin ophen 5-325 MG HYDROcodone -Acetaminop hen 5-325 MG HYDROcodone -Acetaminop hen 5-325 MG 03-10 00:00: 00 No 1{table t_as_ne eded} HYDROcodon e-Acetamin ophen 5-325 MG HYDROcodone -Acetaminop hen 5-325 MG HYDROcodone -Acetaminop hen 5-325 MG 2022-0 4-14 00:00: 00 No 1{table t_as_ne eded} HYDROcodon e-Acetamin ophen 5-325 MG HYDROcodone -Acetaminop hen 5-325 MG HYDROcodone -Acetaminop hen 5-325 MG 2022-0 4-14 00:00: 00 No 1{table t_as_ne eded} HYDROcodon e-Acetamin ophen 5-325 MG HYDROcodone -Acetaminop hen 5-325 MG HYDROcodone -Acetaminop hen 5-325 MG 2022-0 4-14 00:00: 00 No 1{table t_as_ne eded} HYDROcodon e-Acetamin ophen 5-325 MG HYDROcodone -Acetaminop hen 5-325 MG HYDROcodone -Acetaminop hen 5-325 MG 2022-0 4-14 00:00: 00 No 1{table t_as_ne eded} HYDROcodon e-Acetamin ophen 5-325 MG HYDROcodone -Acetaminop hen 5-325 MG HYDROcodone -Acetaminop hen 5-325 MG 2022-0 4-14 00:00: 00 No 1{table t_as_ne eded} HYDROcodon e-Acetamin ophen 5-325 MG HYDROcodone -Acetaminop hen 5-325 MG HYDROcodone -Acetaminop hen 5-325 MG 2022-0 4-14 00:00: 00 No 1{table t_as_ne eded} HYDROcodon e-Acetamin ophen 5-325 MG HYDROcodone -Acetaminop hen 5-325 MG HYDROcodone -Acetaminop hen 5-325 MG 2022-0 4-14 00:00: 00 No 1{table t_as_ne eded} HYDROcodon e-Acetamin ophen 5-325 MG HYDROcodone -Acetaminop hen 5-325 MG HYDROcodone -Acetaminop hen 5-325 MG 2022-0 4-14 00:00: 00 No 1{table t_as_ne eded} HYDROcodon e-Acetamin ophen 5-325 MG HYDROcodone -Acetaminop hen 5-325 MG HYDROcodone -Acetaminop hen 5-325 MG 2022-0 4-14 00:00: 00 No 1{table t_as_ne eded} HYDROcodon e-Acetamin ophen 5-325 MG HYDROcodone -Acetaminop hen 5-325 MG HYDROcodone -Acetaminop hen 5-325 MG 2022-0 4-14 00:00: 00 No 1{table t_as_ne eded} HYDROcodon e-Acetamin ophen 5-325 MG HYDROcodone -Acetaminop hen 5-325 MG HYDROcodone -Acetaminop hen 5-325 MG 2022-0 4-14 00:00: 00 No 1{table t_as_ne eded} HYDROcodon e-Acetamin ophen 5-325 MG HYDROcodone -Acetaminop hen 5-325 MG HYDROcodone -Acetaminop hen 5-325 MG 2022-0 4-14 00:00: 00 No 1{table t_as_ne eded} HYDROcodon e-Acetamin ophen 5-325 MG HYDROcodone -Acetaminop hen 7.5-325 MG HYDROcodone -Acetaminop hen 7.5-325 MG 2022-0 4-04 00:00: 00 No 1{table t_as_ne eded} QID HYDROcodon e-Acetamin ophen 7.5-325 MG HYDROcodone -Acetaminop hen 7.5-325 MG HYDROcodone -Acetaminop hen 7.5-325 MG 2022-0 4-04 00:00: 00 No 1{table t_as_ne eded} QID HYDROcodon e-Acetamin ophen 7.5-325 MG HYDROcodone -Acetaminop hen 7.5-325 MG HYDROcodone -Acetaminop hen 7.5-325 MG 2022-0 4-04 00:00: 00 No 1{table t_as_ne eded} QID HYDROcodon e-Acetamin ophen 7.5-325 MG HYDROcodone -Acetaminop hen 7.5-325 MG HYDROcodone -Acetaminop hen 7.5-325 MG 2022-0 4-04 00:00: 00 No 1{table t_as_ne eded} QID HYDROcodon e-Acetamin ophen 7.5-325 MG HYDROcodone -Acetaminop hen 7.5-325 MG HYDROcodone -Acetaminop hen 7.5-325 MG 2022-0 4-04 00:00: 00 No 1{table t_as_ne eded} QID HYDROcodon e-Acetamin ophen 7.5-325 MG HYDROcodone -Acetaminop hen 7.5-325 MG HYDROcodone -Acetaminop hen 7.5-325 MG 2022-0 4-04 00:00: 00 No 1{table t_as_ne eded} QID HYDROcodon e-Acetamin ophen 7.5-325 MG HYDROcodone -Acetaminop hen 7.5-325 MG HYDROcodone -Acetaminop hen 7.5-325 MG 2022-0 4-04 00:00: 00 No 1{table t_as_ne eded} QID HYDROcodon e-Acetamin ophen 7.5-325 MG HYDROcodone -Acetaminop hen 7.5-325 MG HYDROcodone -Acetaminop hen 7.5-325 MG 2022-0 4- 00:00: 00 No 1{table t_as_ne eded} QID HYDROcodon e-Acetamin ophen 7.5-325 MG HYDROcodone -Acetaminop hen 7.5-325 MG HYDROcodone -Acetaminop hen 7.5-325 MG 2022-0 4-04 00:00: 00 No 1{table t_as_ne eded} QID HYDROcodon e-Acetamin ophen 7.5-325 MG HYDROcodone -Acetaminop hen 7.5-325 MG HYDROcodone -Acetaminop hen 7.5-325 MG 2022-0 4-04 00:00: 00 No 1{table t_as_ne eded} QID HYDROcodon e-Acetamin ophen 7.5-325 MG HYDROcodone -Acetaminop hen 7.5-325 MG HYDROcodone -Acetaminop hen 7.5-325 MG 2022-0 4-04 00:00: 00 No 1{table t_as_ne eded} QID HYDROcodon e-Acetamin ophen 7.5-325 MG HYDROcodone -Acetaminop hen 7.5-325 MG HYDROcodone -Acetaminop hen 7.5-325 MG 2022-0 4-04 00:00: 00 No 1{table t_as_ne eded} QID HYDROcodon e-Acetamin ophen 7.5-325 MG HYDROcodone -Acetaminop hen 7.5-325 MG HYDROcodone -Acetaminop hen 7.5-325 MG 2022-0 4-04 00:00: 00 No 1{table t_as_ne eded} QID HYDROcodon e-Acetamin ophen 7.5-325 MG HYDROcodone -Acetaminop hen 7.5-325 MG HYDROcodone -Acetaminop hen 7.5-325 MG 2022-0 4-04 00:00: 00 No 1{table t_as_ne eded} QID HYDROcodon e-Acetamin ophen 7.5-325 MG HYDROcodone -Acetaminop hen 7.5-325 MG HYDROcodone -Acetaminop hen 7.5-325 MG 2022-0 4-04 00:00: 00 No 1{table t_as_ne eded} QID HYDROcodon e-Acetamin ophen 7.5-325 MG Xarelto 10 MG Xarelto 10 MG 2022-0 328 00:00: 00 No 1{table t} QD Xarelto 10 MG HYDROcodone -Acetaminop hen 7.5-325 MG HYDROcodone -Acetaminop hen 7.5-325 MG 2022-0 328 00:00: 00 No 1{table t_as_ne eded} HYDROcodon e-Acetamin ophen 7.5-325 MG Xarelto 10 MG Xarelto 10 MG 2022-0 3 00:00: 00 No 1{table t} QD Xarelto 10 MG HYDROcodone -Acetaminop hen 7.5-325 MG HYDROcodone -Acetaminop hen 7.5-325 MG 2022-0 328 00:00: 00 No 1{table t_as_ne eded} HYDROcodon e-Acetamin ophen 7.5-325 MG HYDROcodone -Acetaminop hen 7.5-325 MG HYDROcodone -Acetaminop hen 7.5-325 MG 2-0 02-21 00:00: 00 No 1{table t_as_ne eded} HYDROcodon e-Acetamin ophen 7.5-325 MG Xarelto 10 MG Xarelto 10 MG 2022-0 3 00:00: 00 No 1{table t} QD Xarelto 10 MG Xarelto 10 MG Xarelto 10 MG 2022-0 328 00:00: 00 No 1{table t} QD Xarelto 10 MG HYDROcodone -Acetaminop hen 7.5-325 MG HYDROcodone -Acetaminop hen 7.5-325 MG 2-0 02-21 00:00: 00 No 1{table t_as_ne eded} HYDROcodon e-Acetamin ophen 7.5-325 MG Xarelto 10 MG Xarelto 10 MG 2-0 02-21 00:00: 00 No 1{table t} QD Xarelto 10 MG HYDROcodone -Acetaminop hen 7.5-325 MG HYDROcodone -Acetaminop hen 7.5-325 MG 2-0 02-21 00:00: 00 No 1{table t_as_ne eded} HYDROcodon e-Acetamin ophen 7.5-325 MG HYDROcodone -Acetaminop hen 7.5-325 MG HYDROcodone -Acetaminop hen 7.5-325 MG 2-0 02-21 00:00: 00 No 1{table t_as_ne eded} HYDROcodon e-Acetamin ophen 7.5-325 MG Xarelto 10 MG Xarelto 10 MG 2-0 02-21 00:00: 00 No 1{table t} QD Xarelto 10 MG Xarelto 10 MG Xarelto 10 MG 2021-0 02-21 00:00: 00 No 1{table t} QD Xarelto 10 MG HYDROcodone -Acetaminop hen 7.5-325 MG HYDROcodone -Acetaminop hen 7.5-325 MG 2-0 02-21 00:00: 00 No 1{table t_as_ne eded} HYDROcodon e-Acetamin ophen 7.5-325 MG HYDROcodone -Acetaminop hen 7.5-325 MG HYDROcodone -Acetaminop hen 7.5-325 MG 2-0 02-21 00:00: 00 No 1{table t_as_ne eded} HYDROcodon e-Acetamin ophen 7.5-325 MG Xarelto 10 MG Xarelto 10 MG 2-0 02-21 00:00: 00 No 1{table t} QD Xarelto 10 MG HYDROcodone -Acetaminop hen 7.5-325 MG HYDROcodone -Acetaminop hen 7.5-325 MG 2022-0 02-21 00:00: 00 No 1{table t_as_ne eded} HYDROcodon e-Acetamin ophen 7.5-325 MG Xarelto 10 MG Xarelto 10 MG 2-0 02-21 00:00: 00 No 1{table t} QD Xarelto 10 MG HYDROcodone -Acetaminop hen 7.5-325 MG HYDROcodone -Acetaminop hen 7.5-325 MG 2-0 02-21 00:00: 00 No 1{table t_as_ne eded} HYDROcodon e-Acetamin ophen 7.5-325 MG Xarelto 10 MG Xarelto 10 MG 2-0 02-21 00:00: 00 No 1{table t} QD Xarelto 10 MG Xarelto 10 MG Xarelto 10 MG 2-0 02-21 00:00: 00 No 1{table t} QD Xarelto 10 MG HYDROcodone -Acetaminop hen 7.5-325 MG HYDROcodone -Acetaminop hen 7.5-325 MG 2-0 02-21 00:00: 00 No 1{table t_as_ne eded} HYDROcodon e-Acetamin ophen 7.5-325 MG Xarelto 10 MG Xarelto 10 MG 2-0 02-21 00:00: 00 No 1{table t} QD Xarelto 10 MG HYDROcodone -Acetaminop hen 7.5-325 MG HYDROcodone -Acetaminop hen 7.5-325 MG 2-0 02-21 00:00: 00 No 1{table t_as_ne eded} HYDROcodon e-Acetamin ophen 7.5-325 MG Xarelto 10 MG Xarelto 10 MG 2-0 02-21 00:00: 00 No 1{table t} QD Xarelto 10 MG HYDROcodone -Acetaminop hen 7.5-325 MG HYDROcodone -Acetaminop hen 7.5-325 MG 2-0 02-21 00:00: 00 No 1{table t_as_ne eded} HYDROcodon e-Acetamin ophen 7.5-325 MG Xarelto 10 MG Xarelto 10 MG 2-0 02-21 00:00: 00 No 1{table t} QD Xarelto 10 MG HYDROcodone -Acetaminop hen 7.5-325 MG HYDROcodone -Acetaminop hen 7.5-325 MG 2-0 3-28 00:00: 00 No 1{table t_as_ne eded} HYDROcodon e-Acetamin ophen 7.5-325 MG Xarelto 10 MG Xarelto 10 MG 2-0 3-28 00:00: 00 No 1{table t} QD Xarelto 10 MG HYDROcodone -Acetaminop hen 7.5-325 MG HYDROcodone -Acetaminop hen 7.5-325 MG 2-0 328 00:00: 00 No 1{table t_as_ne eded} HYDROcodon e-Acetamin ophen 7.5-325 MG Xarelto 10 MG Xarelto 10 MG 2-0 28 00:00: 00 No 1{table t} QD Xarelto 10 MG HYDROcodone -Acetaminop hen 7.5-325 MG HYDROcodone -Acetaminop hen 7.5-325 MG 2021-0 28 00:00: 00 No 1{table t_as_ne eded} HYDROcodon e-Acetamin ophen 7.5-325 MG Xarelto 10 MG Xarelto 10 MG 2021-0 28 00:00: 00 No 1{table t} QD Xarelto 10 MG HYDROcodone -Acetaminop hen 7.5-325 MG HYDROcodone -Acetaminop hen 7.5-325 MG 2-0 28 00:00: 00 No 1{table t_as_ne eded} HYDROcodon e-Acetamin ophen 7.5-325 MG Bupivicaine [place] Bupivicaine [place] 2020-11 00:00: 00 No [facility] Kenalog (Triamcinol one) Kenalog (Triamcinol one) 2020-11 00:00: 00 No 40mg [facility] Bupivicaine [place] Bupivicaine [place] 2020-11 00:00: 00 No [facility] Kenalog (Triamcinol one) Kenalog (Triamcinol one) 2020-11 00:00: 00 No 40mg [facility] Bupivicaine [place] Bupivicaine [place] 2020-11 00:00: 00 No [facility] Kenalog (Triamcinol one) Kenalog (Triamcinol one) 2020-11 00:00: 00 No 40mg [facility] Bupivicaine [place] Bupivicaine [place] 2020-11 00:00: 00 No 2.5mg [facility] Kenalog (Triamcinol one) Kenalog (Triamcinol one) 2020-11 00:00: 00 No 40mg [facility] Bupivicaine [place] Bupivicaine [place] 2020-11 00:00: 00 No 2.5mg [facility] Kenalog (Triamcinol one) Kenalog (Triamcinol one) 2020-11 00:00: 00 No 40mg [facility] Bupivicaine [place] Bupivicaine [place] 2020-11 00:00: 00 No 2.5mg [facility] Kenalog (Triamcinol one) Kenalog (Triamcinol one) 2020-11 00:00: 00 No 40mg [facility] Bupivicaine [place] Bupivicaine [place] 2020-11 00:00: 00 No 2.5mg [facility] Kenalog (Triamcinol one) Kenalog (Triamcinol one) 2020-11 00:00: 00 No 40mg [facility] Bupivicaine [place] Bupivicaine [place] 2020-11 00:00: 00 No 2.5mg [facility] Kenalog (Triamcinol one) Kenalog (Triamcinol one) 2020-11 00:00: 00 No 40mg [facility] Bupivicaine [place] Bupivicaine [place] 2020-11 00:00: 00 No 2.5mg [facility] Kenalog (Triamcinol one) Kenalog (Triamcinol one) 2020-11 00:00: 00 No 40mg [facility] Bupivicaine [place] Bupivicaine [place] 2020-11 00:00: 00 No 2.5mg [facility] Kenalog (Triamcinol one) Kenalog (Triamcinol one) 2020-11 00:00: 00 No 40mg [facility] Bupivicaine [place] Bupivicaine [place] 2020-11 00:00: 00 No 2.5mg [facility] Kenalog (Triamcinol one) Kenalog (Triamcinol one) 2020-11 00:00: 00 No 40mg [facility] Bupivicaine [place] Bupivicaine [place] 2020-11 00:00: 00 No 2.5mg [facility] Kenalog (Triamcinol one) Kenalog (Triamcinol one) 2020-11 00:00: 00 No 40mg [facility] Bupivicaine [place] Bupivicaine [place] 2020-11 00:00: 00 No 2.5mg [facility] Kenalog (Triamcinol one) Kenalog (Triamcinol one) 2020-11 00:00: 00 No 40mg [facility] Bupivicaine [place] Bupivicaine [place] 2020-11 00:00: 00 No 2.5mg [facility] Kenalog (Triamcinol one) Kenalog (Triamcinol one) 2020-11 00:00: 00 No 40mg [facility] Bupivicaine [place] Bupivicaine [place] 2020-11 00:00: 00 No 2.5mg [facility] Kenalog (Triamcinol one) Kenalog (Triamcinol one) 2020-11 00:00: 00 No 40mg [facility] Bupivicaine [place] Bupivicaine [place] 2020-11 00:00: [address] [facility] Kenalog (Triamcinol one) Kenalog (Triamcinol one) 2020-11 00:00: [address] [facility] Bupivicaine [place] Bupivicaine [place] 2020-11 00:00: 00 No 2.5mg [facility] Kenalog (Triamcinol one) Kenalog (Triamcinol one) 2020-11 00:00: [address] [facility] Bupivicaine [place] Bupivicaine [place] 2020-11 00:00: 00 No 2.5mg [facility] Kenalog (Triamcinol one) Kenalog (Triamcinol one) 2020-11 00:00: [address] [facility] Bupivicaine [place] Bupivicaine [place] 2020-11 00:00: 00 No [facility] Kenalog (Triamcinol one) Kenalog (Triamcinol one) 2020-11 00:00: 00 No 40mg [facility] Nasacort Allergy 24HR Nasacort Allergy 24HR 2019-0 07-28 00:00: 00 Yes Mau Nance 1 spray in each nostril [facility] Kenalog (Triamcinol one) Kenalog (Triamcinol one) 2018-11 0- 00:00: 00 No 40mg [facility] Kenalog (Triamcinol one) Kenalog (Triamcinol one) 2018-11 0- 00:00: [address] [facility] Kenalog (Triamcinol one) Kenalog (Triamcinol one) 2018-11 0-28 00:00: [address] [facility] Kenalog (Triamcinol one) Kenalog (Triamcinol one) 2018-11 00:00: 00 No 40mg [facility] Kenalog (Triamcinol one) Kenalog (Triamcinol one) 2018-11 00:00: 00 No 40mg [facility] Kenalog (Triamcinol one) Kenalog (Triamcinol one) 2018-11 00:00: 00 No 40mg [facility] Kenalog (Triamcinol one) Kenalog (Triamcinol one) 2018-11 00:00: 00 No 40mg [facility] Kenalog (Triamcinol one) Kenalog (Triamcinol one) 2018-11 00:00: 00 No 40mg [facility] Kenalog (Triamcinol one) Kenalog (Triamcinol one) 2018-11 00:00: 00 No 40mg [facility] Kenalog (Triamcinol one) Kenalog (Triamcinol one) 2018-11 00:00: 00 No 40mg [facility] Kenalog (Triamcinol one) Kenalog (Triamcinol one) 2018-11 00:00: 00 No 40mg [facility] Kenalog (Triamcinol one) Kenalog (Triamcinol one) 2018-11 00:00: 00 No 40mg [facility] Kenalog (Triamcinol one) Kenalog (Triamcinol one) 2018-11 00:00: 00 No 40mg [facility] Kenalog (Triamcinol one) Kenalog (Triamcinol one) 2018-11 00:00: 00 No 40mg [facility] Kenalog (Triamcinol one) Kenalog (Triamcinol one) 2018-11 00:00: 00 No 40mg [facility] Kenalog (Triamcinol one) Kenalog (Triamcinol one) 2018-11 00:00: 00 No 40mg [facility] Kenalog (Triamcinol one) Kenalog (Triamcinol one) 2018-11 00:00: 00 No 40mg [facility] Kenalog (Triamcinol one) Kenalog (Triamcinol one) 2018-11 00:00: 00 No 40mg [facility] Kenalog (Triamcinol one) Kenalog (Triamcinol one) 2018-11 00:00: 00 No 40mg [facility] Zoloft Zoloft Yes Mau Nance 1 tablet [facility] Requip Requip Yes Mau Nance 1 tablet [facility] Simvastatin Simvastatin Yes Mau Nance 1 tablet in the evening [facility] Levothyroxi ne Sodium Levothyroxi ne Sodium Yes Mau Nance 1 tablet on an empty stomach in the morning [facility] Losartan Potassium Losartan Potassium Yes Mau Nance 1 tablet [facility] Celebrex Celebrex Yes Mau Nance 1 capsule with food [facility] CeleBREX 200 MG CeleBREX 200 MG No 1{capsu le_with _food} QD CeleBREX 200 MG Levothyroxi ne Sodium 88 MCG Levothyroxi ne Sodium 88 MCG No QD Levothyrox ine Sodium 88 MCG Losartan Potassium 100 MG Losartan Potassium 100 MG No Losartan Potassium 100 MG Sertraline HCl 100 MG Sertraline HCl 100 MG No Sertraline HCl 100 MG Simvastatin 40 MG Simvastatin 40 MG No Simvastati n 40 MG Requip 5 MG Requip 5 MG No 1{table t} BID Requip 5 MG CeleBREX 200 MG CeleBREX 200 MG No 1{capsu le_with _food} QD CeleBREX 200 MG Levothyroxi ne Sodium 88 MCG Levothyroxi ne Sodium 88 MCG No QD Levothyrox ine Sodium 88 MCG Sertraline HCl 100 MG Sertraline HCl 100 MG No Sertraline HCl 100 MG Simvastatin 40 MG Simvastatin 40 MG No Simvastati n 40 MG Requip 5 MG Requip 5 MG No 1{table t} BID Requip 5 MG Losartan Potassium 100 MG Losartan Potassium 100 MG No Losartan Potassium 100 MG CeleBREX 200 MG CeleBREX 200 MG No 1{capsu le_with _food} QD CeleBREX 200 MG Levothyroxi ne Sodium 88 MCG Levothyroxi ne Sodium 88 MCG No QD Levothyrox ine Sodium 88 MCG Sertraline HCl 100 MG Sertraline HCl 100 MG No Sertraline HCl 100 MG Simvastatin 40 MG Simvastatin 40 MG No Simvastati n 40 MG Requip 5 MG Requip 5 MG No 1{table t} BID Requip 5 MG Losartan Potassium 100 MG Losartan Potassium 100 MG No Losartan Potassium 100 MG CeleBREX 200 MG CeleBREX 200 MG No 1{capsu le_with _food} QD CeleBREX 200 MG Levothyroxi ne Sodium 88 MCG Levothyroxi ne Sodium 88 MCG No QD Levothyrox ine Sodium 88 MCG Requip 5 MG Requip 5 MG No 1{table t} BID Requip 5 MG [place] Potassium 100 MG [place] Potassium 100 MG No [place] Potassium 100 MG Sertraline HCl 100 MG Sertraline HCl 100 MG No Sertraline HCl 100 MG Simvastatin 40 MG Simvastatin 40 MG No Simvastati n 40 MG [place] Potassium 100 MG [place] Potassium 100 MG No [place] Potassium 100 MG Requip 5 MG Requip 5 MG No 1{table t} BID Requip 5 MG Levothyroxi ne Sodium 88 MCG Levothyroxi ne Sodium 88 MCG No QD Levothyrox ine Sodium 88 MCG Simvastatin 40 MG Simvastatin 40 MG No Simvastati n 40 MG Sertraline HCl 100 MG Sertraline HCl 100 MG No Sertraline HCl 100 MG CeleBREX 200 MG CeleBREX 200 MG No 1{capsu le_with _food} QD CeleBREX 200 MG [place] Potassium 100 MG [place] Potassium 100 MG No [place] Potassium 100 MG Requip 5 MG Requip 5 MG No 1{table t} BID Requip 5 MG Levothyroxi ne Sodium 88 MCG Levothyroxi ne Sodium 88 MCG No QD Levothyrox ine Sodium 88 MCG Simvastatin 40 MG Simvastatin 40 MG No Simvastati n 40 MG Sertraline HCl 100 MG Sertraline HCl 100 MG No Sertraline HCl 100 MG CeleBREX 200 MG CeleBREX 200 MG No 1{capsu le_with _food} QD CeleBREX 200 MG Losartan Potassium 100 MG Losartan Potassium 100 MG No Losartan Potassium 100 MG CeleBREX 200 MG CeleBREX 200 MG No 1{capsu le_with _food} QD CeleBREX 200 MG Requip 5 MG Requip 5 MG No 1{table t} BID Requip 5 MG Sertraline HCl 100 MG Sertraline HCl 100 MG No Sertraline HCl 100 MG Simvastatin 40 MG Simvastatin 40 MG No Simvastati n 40 MG Levothyroxi ne Sodium 88 MCG Levothyroxi ne Sodium 88 MCG No QD Levothyrox ine Sodium 88 MCG Losartan Potassium 100 MG Losartan Potassium 100 MG No Losartan Potassium 100 MG CeleBREX 200 MG CeleBREX 200 MG No 1{capsu le_with _food} QD CeleBREX 200 MG Simvastatin 40 MG Simvastatin 40 MG No Simvastati n 40 MG Requip 5 MG Requip 5 MG No 1{table t} BID Requip 5 MG Sertraline HCl 100 MG Sertraline HCl 100 MG No Sertraline HCl 100 MG Levothyroxi ne Sodium 88 MCG Levothyroxi ne Sodium 88 MCG No QD Levothyrox ine Sodium 88 MCG Sertraline HCl 100 MG Sertraline HCl 100 MG No Sertraline HCl 100 MG CeleBREX 200 MG CeleBREX 200 MG No 1{capsu le_with _food} QD CeleBREX 200 MG Levothyroxi ne Sodium 88 MCG Levothyroxi ne Sodium 88 MCG No QD Levothyrox ine Sodium 88 MCG Simvastatin 40 MG Simvastatin 40 MG No Simvastati n 40 MG Requip 5 MG Requip 5 MG No 1{table t} BID Requip 5 MG Losartan Potassium 100 MG Losartan Potassium 100 MG No Losartan Potassium 100 MG Levothyroxi ne Sodium 88 MCG Levothyroxi ne Sodium 88 MCG No QD Levothyrox ine Sodium 88 MCG Requip 5 MG Requip 5 MG No 1{table t} BID Requip 5 MG Losartan Potassium 100 MG Losartan Potassium 100 MG No Losartan Potassium 100 MG CeleBREX 200 MG CeleBREX 200 MG No 1{capsu le_with _food} QD CeleBREX 200 MG Simvastatin 40 MG Simvastatin 40 MG No Simvastati n 40 MG Sertraline HCl 100 MG Sertraline HCl 100 MG No Sertraline HCl 100 MG Levothyroxi ne Sodium 88 MCG Levothyroxi ne Sodium 88 MCG No QD Levothyrox ine Sodium 88 MCG Requip 5 MG Requip 5 MG No 1{table t} BID Requip 5 MG Losartan Potassium 100 MG Losartan Potassium 100 MG No Losartan Potassium 100 MG CeleBREX 200 MG CeleBREX 200 MG No 1{capsu le_with _food} QD CeleBREX 200 MG Simvastatin 40 MG Simvastatin 40 MG No Simvastati n 40 MG Sertraline HCl 100 MG Sertraline HCl 100 MG No Sertraline HCl 100 MG CeleBREX 200 MG CeleBREX 200 MG No 1{capsu le_with _food} QD CeleBREX 200 MG Levothyroxi ne Sodium 88 MCG Levothyroxi ne Sodium 88 MCG No QD Levothyrox ine Sodium 88 MCG Requip 5 MG Requip 5 MG No 1{table t} BID Requip 5 MG Losartan Potassium 100 MG Losartan Potassium 100 MG No Losartan Potassium 100 MG Sertraline HCl 100 MG Sertraline HCl 100 MG No Sertraline HCl 100 MG Simvastatin 40 MG Simvastatin 40 MG No Simvastati n 40 MG Labetalol HCl 300 MG Labetalol HCl 300 MG No 1{table t} BID Labetalol HCl 300 MG CeleBREX 200 MG CeleBREX 200 MG No 1{capsu le_with _food} QD CeleBREX 200 MG Levothyroxi ne Sodium 88 MCG Levothyroxi ne Sodium 88 MCG No QD Levothyrox ine Sodium 88 MCG Requip 5 MG Requip 5 MG No 1{table t} BID Requip 5 MG Losartan Potassium 100 MG Losartan Potassium 100 MG No Losartan Potassium 100 MG Sertraline HCl 100 MG Sertraline HCl 100 MG No Sertraline HCl 100 MG Simvastatin 40 MG Simvastatin 40 MG No Simvastati n 40 MG Labetalol HCl 300 MG Labetalol HCl 300 MG No 1{table t} BID Labetalol HCl 300 MG CeleBREX 200 MG CeleBREX 200 MG No 1{capsu le_with _food} QD CeleBREX 200 MG Levothyroxi ne Sodium 88 MCG Levothyroxi ne Sodium 88 MCG No QD Levothyrox ine Sodium 88 MCG Requip 5 MG Requip 5 MG No 1{table t} BID Requip 5 MG Losartan Potassium 100 MG Losartan Potassium 100 MG No Losartan Potassium 100 MG Sertraline HCl 100 MG Sertraline HCl 100 MG No Sertraline HCl 100 MG Simvastatin 40 MG Simvastatin 40 MG No Simvastati n 40 MG Labetalol HCl 300 MG Labetalol HCl 300 MG No 1{table t} BID Labetalol HCl 300 MG CeleBREX 200 MG CeleBREX 200 MG No 1{capsu le_with _food} QD CeleBREX 200 MG Levothyroxi ne Sodium 88 MCG Levothyroxi ne Sodium 88 MCG No QD Levothyrox ine Sodium 88 MCG Requip 5 MG Requip 5 MG No 1{table t} BID Requip 5 MG Losartan Potassium 100 MG Losartan Potassium 100 MG No Losartan Potassium 100 MG Sertraline HCl 100 MG Sertraline HCl 100 MG No Sertraline HCl 100 MG Simvastatin 40 MG Simvastatin 40 MG No Simvastati n 40 MG Labetalol HCl 300 MG Labetalol HCl 300 MG No 1{table t} BID Labetalol HCl 300 MG CeleBREX 200 MG CeleBREX 200 MG No 1{capsu le_with _food} QD CeleBREX 200 MG Levothyroxi ne Sodium 88 MCG Levothyroxi ne Sodium 88 MCG No QD Levothyrox ine Sodium 88 MCG Requip 5 MG Requip 5 MG No 1{table t} BID Requip 5 MG Losartan Potassium 100 MG Losartan Potassium 100 MG No Losartan Potassium 100 MG Sertraline HCl 100 MG Sertraline HCl 100 MG No Sertraline HCl 100 MG Simvastatin 40 MG Simvastatin 40 MG No Simvastati n 40 MG Labetalol HCl 300 MG Labetalol HCl 300 MG No 1{table t} BID Labetalol HCl 300 MG CeleBREX 200 MG CeleBREX 200 MG No 1{capsu le_with _food} QD CeleBREX 200 MG Levothyroxi ne Sodium 88 MCG Levothyroxi ne Sodium 88 MCG No QD Levothyrox ine Sodium 88 MCG Requip 5 MG Requip 5 MG No 1{table t} BID Requip 5 MG Losartan Potassium 100 MG Losartan Potassium 100 MG No Losartan Potassium 100 MG Sertraline HCl 100 MG Sertraline HCl 100 MG No Sertraline HCl 100 MG Simvastatin 40 MG Simvastatin 40 MG No Simvastati n 40 MG Labetalol HCl 300 MG Labetalol HCl 300 MG No 1{table t} BID Labetalol HCl 300 MG CeleBREX 200 MG CeleBREX 200 MG No 1{capsu le_with _food} QD CeleBREX 200 MG Levothyroxi ne Sodium 88 MCG Levothyroxi ne Sodium 88 MCG No QD Levothyrox ine Sodium 88 MCG Requip 5 MG Requip 5 MG No 1{table t} BID Requip 5 MG Losartan Potassium 100 MG Losartan Potassium 100 MG No Losartan Potassium 100 MG Sertraline HCl 100 MG Sertraline HCl 100 MG No Sertraline HCl 100 MG Simvastatin 40 MG Simvastatin 40 MG No Simvastati n 40 MG Labetalol HCl 300 MG Labetalol HCl 300 MG No 1{table t} BID Labetalol HCl 300 MG Losartan Potassium 100 MG Losartan Potassium 100 MG No Losartan Potassium 100 MG Sertraline HCl 100 MG Sertraline HCl 100 MG No Sertraline HCl 100 MG CeleBREX 200 MG CeleBREX 200 MG No 1{capsu le_with _food} QD CeleBREX 200 MG Levothyroxi ne Sodium 88 MCG Levothyroxi ne Sodium 88 MCG No QD Levothyrox ine Sodium 88 MCG Simvastatin 40 MG Simvastatin 40 MG No Simvastati n 40 MG Requip 5 MG Requip 5 MG No 1{table t} BID Requip 5 MG Levothyroxi ne Sodium 88 MCG Levothyroxi ne Sodium 88 MCG No QD Levothyrox ine Sodium 88 MCG Sertraline HCl 100 MG Sertraline HCl 100 MG No Sertraline HCl 100 MG CeleBREX 200 MG CeleBREX 200 MG No 1{capsu le_with _food} QD CeleBREX 200 MG Simvastatin 40 MG Simvastatin 40 MG No Simvastati n 40 MG Requip 5 MG Requip 5 MG No 1{table t} BID Requip 5 MG Losartan Potassium 100 MG Losartan Potassium 100 MG No Losartan Potassium 100 MG Levothyroxi ne Sodium 88 MCG Levothyroxi ne Sodium 88 MCG No QD Levothyrox ine Sodium 88 MCG Sertraline HCl 100 MG Sertraline HCl 100 MG No Sertraline HCl 100 MG CeleBREX 200 MG CeleBREX 200 MG No 1{capsu le_with _food} QD CeleBREX 200 MG Simvastatin 40 MG Simvastatin 40 MG No Simvastati n 40 MG Requip 5 MG Requip 5 MG No 1{table t} BID Requip 5 MG Losartan Potassium 100 MG Losartan Potassium 100 MG No Losartan Potassium 100 MG Immunizations Ordered Immunization Name Filled Immunization Name Date Status Comments Source FluAD FluAD 2019-08-20 09:23:00 Completed [facility] FluAD FluAD 2019-08-20 09:23:00 Completed [facility] FluAD FluAD 2019-08-20 09:23:00 Completed [facility] FluAD FluAD 2019-08-20 09:23:00 [facility] FluAD FluAD 2019-08-20 09:23:00 Completed [facility] FluAD FluAD 2019-08-20 09:23:00 Completed [facility] FluAD FluAD 2019-08-20 09:23:00 Completed [facility] FluAD FluAD 2019-08-20 09:23:00 Completed [facility] FluAD FluAD 2019-08-20 09:23:00 Completed [facility] FluAD FluAD 2019-08-20 09:23:00 [facility] FluAD FluAD 2019-08-20 09:23:00 [facility] FluAD FluAD 2019-08-20 09:23:00 [facility] FluAD FluAD 2019-08-20 09:23:00 Completed [facility] FluAD FluAD 2019-08-20 09:23:00 Completed [facility] FluAD FluAD 2019-08-20 00:00:00 Completed [facility] PNEUMAVAX 23 PNEUMAVAX 2019-03-21 14:52:00 [facility] PNEUMAVAX 23 PNEUMAVAX 2019-03-21 14:52:00 [facility] PNEUMAVAX 23 PNEUMAVAX 2019-03-21 14:52:00 Completed [facility] PNEUMAVAX 23 PNEUMAVAX 2019-03-21 14:52:00 [facility] PNEUMAVAX 23 PNEUMAVAX 2019-03-21 14:52:00 [facility]pleted [facility] PNEUMAVAX 23 PNEUMAVAX 2019-03-21 14:52:00 [facility]pleted [facility] PNEUMAVAX 23 PNEUMAVAX 2019-03-21 14:52:00 Completed [facility] PNEUMAVAX 23 PNEUMAVAX 2019-03-21 14:52:00 Completed [facility] PNEUMAVAX 23 PNEUMAVAX 2019-03-21 14:52:00 Completed [facility] PNEUMAVAX 23 PNEUMAVAX 2019-03-21 14:52:00 Completed [facility] PNEUMAVAX 23 PNEUMAVAX 2019-03-21 14:52:00 Completed [facility] PNEUMAVAX 23 PNEUMAVAX 2019-03-21 14:52:00 Completed [facility] PNEUMAVAX 23 PNEUMAVAX 2019-03-21 14:52:00 Completed [facility] PNEUMAVAX 23 PNEUMAVAX 2019-03-21 14:52:00 Completed [facility] PNEUMAVAX 23 PNEUMAVAX 2019-03-21 00:00:00 Completed [facility] FluAD FluAD Unknown Completed [facility] PNEUMAVAX 23 PNEUMAVAX 23 Unknown Completed Comm on [facility] FluAD FluAD Unknown Completed [facility] PNEUMAVAX 23 PNEUMAVAX 23 Unknown Completed [facility] FluAD FluAD Unknown Completed [facility] PNEUMAVAX 23 PNEUMAVAX 23 Unknown Completed [facility] FluAD FluAD Unknown Completed [facility] PNEUMAVAX 23 PNEUMAVAX 23 Unknown Completed [facility] on [facility] FluAD FluAD Unknown Completed [facility] PNEUMAVAX 23 PNEUMAVAX 23 Unknown Completed Comm on [facility] FluAD FluAD Unknown Completed [facility] PNEUMAVAX 23 PNEUMAVAX 23 Unknown Completed Comm on [facility] FluAD FluAD Unknown Completed [facility] PNEUMAVAX 23 PNEUMAVAX 23 Unknown Completed Comm on [facility] Vital Signs Vital Name Observation Time Observation Value Comments S ource height 2023-10-24 08:00:00 75 [in_i] Commo n [facility] weight 2023-10-24 08:00:00 257 [lb_av] Comm on [facility] temperature 2023-10-24 08:00:00 97.6 [degF] Com mon [facility] bmi 2023-10-24 08:00:00 32.12 kg/m2 Comm on [facility] blood pressure systolic 2023-10-24 08:00:00 136 mm[Hg] [facility] blood pressure diastolic 2023-10-24 08:00:00 78 mm[Hg] [facility] height 2023-09-12 08:00:00 75 [in_i] Commo n [facility] weight 2023-09-12 08:00:00 257 [lb_av] Comm on [facility] temperature 2023-09-12 08:00:00 99.2 [degF] Com mon [facility] bmi 2023-09-12 08:00:00 32.12 kg/m2 Comm on [facility] blood pressure systolic 2023-09-12 08:00:00 136 mm[Hg] [facility] blood pressure diastolic 2023-09-12 08:00:00 84 mm[Hg] [facility] height 2023-08-03 14:30:00 75 [in_i] Commo n [facility] weight 2023-08-03 14:30:00 257 [lb_av] Comm on [facility] temperature 2023-08-03 14:30:00 98.0 [degF] Com [facility] bmi 2023-08-03 14:30:00 32.12 kg/m2 Comm on [facility] blood pressure systolic 2023-08-03 14:30:00 132 mm[Hg] [facility] blood pressure diastolic 2023-08-03 14:30:00 74 mm[Hg] [facility] height 2023-07-27 08:15:00 75 [in_i] Commo n [facility] weight 2023-07-27 08:15:00 261 [lb_av] Comm on [facility] bmi 2023-07-27 08:15:00 32.62 kg/m2 Comm on [facility] blood pressure systolic 2023-07-27 08:15:00 126 mm[Hg] [facility] blood pressure diastolic 2023-07-27 08:15:00 74 mm[Hg] [facility] height 2023-07-06 10:00:00 75 [in_i] Commo n [facility] weight 2023-07-06 10:00:00 261 [lb_av] Comm on [facility] temperature 2023-07-06 10:00:00 98.3 [degF] Com mon [facility] bmi 2023-07-06 10:00:00 32.62 kg/m2 Comm on [facility] blood pressure systolic 2023-07-06 10:00:00 100 mm[Hg] [facility] blood pressure diastolic 2023-07-06 10:00:00 68 mm[Hg] Common [facility] height 2022-12-12 08:00:00 75 [in_i] Commo n [facility] weight 2022-12-12 08:00:00 261.2 [lb_av] Co mmon [facility] temperature 2022-12-12 08:00:00 98.2 [degF] Com mon [facility] bmi 2022-12-12 08:00:00 32.64 kg/m2 Comm on [facility] blood pressure systolic 2022-12-12 08:00:00 130 mm[Hg] [facility] blood pressure diastolic 2022-12-12 08:00:00 81 mm[Hg] [facility] Systolic blood pressure 2022-07-17 05:00:00 161 mm[Hg] [facility] Diastolic blood pressure 2022-07-17 05:00:00 97 mm[Hg] [facility] Heart rate 2022-07-17 05:00:00 89 /min [facility] Respiratory rate 2022-07-17 05:00:00 14 /min [facility] Oxygen saturation in Arterial blood by Pulse oximetry 2022-07-17 05:00:00 94 /min [facility] Body temperature 2022-07-17 03:36:00 36.5 Yun [facility] Body height 2022-07-17 03:36:00 190.5 cm [facility] Body weight 2022-07-17 03:36:00 117.935 kg [facility] BMI 2022-07-17 03:36:00 32.50 kg/m2 [facility] height 2022-07-08 08:15:00 75 [in_i] Commo n [facility] weight 2022-07-08 08:15:00 260 [lb_av] Comm on [facility] temperature 2022-07-08 08:15:00 97.6 [degF] Com [facility] bmi 2022-07-08 08:15:00 32.49 kg/m2 Comm on [facility] blood pressure systolic 2022-07-08 08:15:00 132 mm[Hg] Common [facility] blood pressure diastolic 2022-07-08 08:15:00 84 mm[Hg] Common [facility] height 2022-06-07 10:00:00 75 [in_i] Commo n [facility] weight 2022-06-07 10:00:00 260 [lb_av] Comm on [facility] temperature 2022-06-07 10:00:00 97.6 [degF] Com [facility] bmi 2022-06-07 10:00:00 32.49 kg/m2 Comm on [facility] blood pressure systolic 2022-06-07 10:00:00 136 mm[Hg] [facility] blood pressure diastolic 2022-06-07 10:00:00 86 mm[Hg] [facility] height 2022-04-11 09:30:00 75 [in_i] Commo n [facility] weight 2022-04-11 09:30:00 260 [lb_av] Comm on [facility] temperature 2022-04-11 09:30:00 97.7 [degF] Com [facility] bmi 2022-04-11 09:30:00 32.49 kg/m2 Comm on [facility] blood pressure systolic 2022-04-11 09:30:00 136 mm[Hg] [facility] blood pressure diastolic 2022-04-11 09:30:00 78 mm[Hg] [facility] height 2022-03-10 09:00:00 75 [in_i] Commo n [facility] weight 2022-03-10 09:00:00 258 [lb_av] Comm on [facility] temperature 2022-03-10 09:00:00 97.2 [degF] Com [facility] bmi 2022-03-10 09:00:00 32.24 kg/m2 Comm on [facility] blood pressure systolic 2022-03-10 09:00:00 114 mm[Hg] [facility] blood pressure diastolic 2022-03-10 09:00:00 68 mm[Hg] [facility] height 2022-02-10 08:30:00 75 [in_i] Commo n [facility] weight 2022-02-10 08:30:00 258 [lb_av] Comm on [facility] temperature 2022-02-10 08:30:00 97.5 [degF] Com mon [facility] bmi 2022-02-10 08:30:00 32.24 kg/m2 Comm on [facility] blood pressure systolic 2022-02-10 08:30:00 122 mm[Hg] Common [facility] blood pressure diastolic 2022-02-10 08:30:00 76 mm[Hg] Common [facility] height 2021-12-28 11:00:00 75 [in_i] Commo n [facility] weight 2021-12-28 11:00:00 258 [lb_av] Comm on [facility] temperature 2021-12-28 11:00:00 98.0 [degF] Com mon [facility] bmi 2021-12-28 11:00:00 32.24 kg/m2 Comm on [facility] blood pressure systolic 2021-12-28 11:00:00 124 mm[Hg] Common [facility] blood pressure diastolic 2021-12-28 11:00:00 72 mm[Hg] Common [facility] height 2021-10-19 08:00:00 75 [in_i] Commo n [facility] weight 2021-10-19 08:00:00 260 [lb_av] Comm on [facility] bmi 2021-10-19 08:00:00 32.49 kg/m2 Comm on [facility] blood pressure systolic 2021-10-19 08:00:00 134 mm[Hg] Common [facility] blood pressure diastolic 2021-10-19 08:00:00 90 mm[Hg] Common [facility] Procedures Procedure Date / Time Performed Performing Clinician Source EKG-12 LEAD 2022-07-17 05:11:59 Jeannette Denson [facility] TROPONIN I 2022-07-17 03:41:00 Jeannette Denson [facility] THYROID STIMULATING HORMONE 2022-07-17 03:41:00 Jeannette Denson [facility] COMP. METABOLIC PANEL (52164) 2022-07-17 03:41:00 Jeannette Denson [facility] CBC WITH DIFF 2022-07-17 03:41:00 Jeannette Denson [facility] URINALYSIS 2022-07-17 03:41:00 Jeannette Denson [facility] LACTIC ACID WHOLE BLOOD 2022-07-17 03:41:00 Temi Denson [facility] COVID-19 (ID NOW RAPID TESTING) 2022-07-17 03:41:00 Jeannette Denson [facility] Encounters Start Date/Time End Date/Time Encounter Type Admission Type Attending Clinicians Care Facility Care Department Encounter ID Source 2023-12-13 13:11:00 Outpatient Nance, Mau [facility]LMLC ST[facility] [id number] [facility] 2023-12-05 09:47:00 Outpatient Nance, Mau STLC [facility] [id number] [facility] 2022-12-12 12:43:00 Outpatient Nance, Mau STLC [facility] [id number] [facility] 2022-12-06 09:41:01 Outpatient Nance, Mau STLMLC ST[facility] [id number] [facility] 2022-07-08 08:05:00 Outpatient Nance, Mau STLC [facility] [id number] [facility] 2022-04-14 12:49:00 Outpatient Nance, Mau STLMLC ST[facility] [id number] [facility] 2022-02-25 12:41:00 Outpatient Nance, Mau STLMLC ST[facility] [id number] [facility] 2022-02-10 08:34:01 Outpatient Nance, Mau STLMLC ST[facility] [id number] [facility] 2022-02-09 11:55:00 Outpatient Nance, Mau STLC [facility] [id number] [facility] 2021-12-28 07:57:01 Outpatient Nance, Mau STLC [facility] [id number] [facility] 2021-12-22 14:14:40 Outpatient Nance, Mau STLC [facility] [id number] [facility] 2021-12-22 11:32:10 Outpatient Nance, Mau STLC [facility] [id number] [facility] 2021-12-22 11:31:03 Outpatient Nance, Mau STLC [facility] [id number] [facility] 2021-12-22 11:17:40 Outpatient Nance, Mau STLC [facility] [id number] [facility] 2021-12-22 11:17:19 Outpatient Nance, Mau STLC [facility] [id number] [facility] 2021-12-22 11:16:49 Outpatient Nance, Mau STLC [facility] [id number] [facility] 2023-10-24 00:00:00 2023-10-24 00:00:00 (F/U) Follow Up Visit [facility]C [facility] [id number] [facility] 2023-09-12 00:00:00 2023-09-12 00:00:00 OFFICE VISIT ESTAB PT LEVEL 4 [facility] ST[facility] [id number] [facility] 2023-08-29 00:00:00 2023-08-29 00:00:00 (TEL) STLMLC STL[facility]C [id number] [facility] 2023-08-29 00:00:00 2023-08-29 00:00:00 (TEL) STLMLC ST[facility]C [id number] [facility] 2023-08-03 00:00:00 2023-08-03 00:00:00 OFFICE VISIT ESTAB PT LEVEL 4 [facility]C ST[facility] [id number] [facility] 2023-07-27 00:00:00 2023-07-27 00:00:00 OFFICE VISIT ESTAB PT LEVEL 3 [facility] [id number] [facility] 2023-07-06 00:00:00 2023-07-06 00:00:00 OFFICE VISIT ESTAB PT LEVEL 4 [facility] [id number] [facility] 2022-12-12 00:00:00 2022-12-12 00:00:00 OFFICE VISIT EST PT LEVEL 3 [facility] ST[facility] [id number] [facility] 2022-07-16 22:39:00 2022-07-17 00:22:00 Emergency X JEANNETTE DENSON [facility] ERT [id number] [facility] 2022-07-16 22:39:00 2022-07-17 00:22:00 Emergency Shae Liao [place] [facility] [id number] [facility] 2022-07-08 00:00:00 2022-07-08 00:00:00 OFFICE VISIT ESTAB PT LEVEL 4 [facility] ST[facility] [id number] [facility] 2022-06-07 00:00:00 2022-06-07 00:00:00 OFFICE VISIT EST PT LEVEL 3 [facility] [id number] [facility] 2022-04-11 00:00:00 2022-04-11 00:00:00 NON-BILLAB LE VISIT STLMLC STLMLC [id number] [facility] 2022-03-10 00:00:00 2022-03-10 00:00:00 Postop visit STLMLC [facility] [id number] [facility] 2022-03-10 00:00:00 2022-03-10 00:00:00 (TEL) STLMLC STL[facility]C [id number] [facility] 2022-02-28 00:00:00 2022-02-28 00:00:00 (TEL) STLMLC [facility]C [id number] [facility] 2022-02-24 00:00:00 2022-02-24 00:00:00 (TEL) STLMLC ST[facility]C [id number] [facility] 2022-02-21 00:00:00 2022-02-21 00:00:00 (TEL) STLMLC STL[facility]C [id number] [facility] 2022-02-10 00:00:00 2022-02-10 00:00:00 OFFICE VISIT ESTAB PT LEVEL 4 [facility] [id number] [facility] 2022-01-31 00:00:00 2022-01-31 00:00:00 (TEL) STLMLC STL[facility]C [id number] [facility] 2021-12-28 00:00:00 2021-12-28 00:00:00 OFFICE VISIT ESTAB PT LEVEL 4 [facility] [id number] [facility] 2021-12-28 00:00:00 2021-12-28 00:00:00 (TEL) [facility]MLC [facility]C [id number] [facility] 2021-10-19 00:00:00 2021-10-19 00:00:00 OFFICE VISIT NEW PT LEVEL 4 [facility] ST[facility] [id number] [facility] 2020-08-24 00:00:00 2020-08-24 00:00:00 Outpatient [facility] [id number] [facility] 2020-07-28 09:20:00 2020-07-28 09:20:00 Outpatient [facility] [id number] [facility] 2020-06-15 15:00:00 2020-06-15 15:00:00 [facility] [id number] [facility] 2020-06-09 08:00:00 2020-06-09 08:00:[address] [facility] [id number] [facility] 2020-06-08 08:31:00 2020-06-08 08:31:[address] [facility] [facility] [address] [facility] [facility] [id number] [facility] 2020-04-13 11:20:00 2020-04-13 11:20:[address] [facility] [id number] [facility] 2020-04-13 08:41:00 2020-04-13 08:41:[address] [facility] [id number] [facility] 2020-03-06 09:45:00 2020-03-06 09:45:[address] [facility] [address] [id number] [facility] 2019-12-05 08:15:00 2019-12-05 08:15:[address] [facility] [facility] [id number] [facility] 2019-11-28 16:06:00 2019-11-28 16:06:[address] [facility] [id number] [facility] 2019-10-04 09:33:00 2019-10-04 09:33:[address] [facility] [facility] [id number] [facility] 2019-09-23 15:00:00 2019-09-23 15:00:00 [facility] [id number] [facility] 2019-08-20 09:15:00 2019-08-20 09:15:[address] [facility] [id number] [facility] 2019-06-05 11:15:00 2019-06-05 11:15:[address] [facility] [id number] [facility] 2019-05-21 08:45:00 2019-05-21 08:45:00 Outpatient [facility] [id number] [facility] 2019-03-21 13:00:00 2019-03-21 13:00:00 Outpatient [facility] [id number] [facility] 2019-02-13 13:00:00 2019-02-13 13:00:00 Outpatient [facility] [id number] [facility] Results Test Description Test Time Test Comments Results Result Co mments Source [id number]:47[facility]32* Test Item Value Reference Range Interpretation Comments TROPONIN I (test code = 3954375669) 0.005 ng/mL See_Comment [Automated message] The system which generated this result transmitted reference range: <=0.034. The reference range was not used to interpret this result as normal/abnormal. BUCK (test code = BUCK) Reference (Normal) Range (defined by the 99th percentile reference [...] to patient's use of biotin. Lab Interpretation (test code = 04696-0) Normal [facility] (47121)2022-07-17 04:35:55* Test Item Value Reference Range Interpretation Comme nts NA (test code = 4016392181) 140 mmol/L 135-145 K (test code = 0977044568) 4.3 mmol/L 3.5-5 CL (test code = 5496304769) 110 mmol/L 98-108 H CO2 TOTAL (test code = 6886763871) 22 mmol/L 23-31 L AGAP (test code = 7638373036) 2-16 BUN (test code = 7955535573) 26 mg/dL 7-23 H GLUCOSE (test code = 6527715284) 111 mg/dL 70-110 H CREATININE (test code = 9675964637) 1.15 mg/dL 0.6-1.25 TOTAL BILI (test code = 4479030230) 0.2 mg/dL 0.1-1.1 CALCIUM (test code = 3730253609) 8.9 mg/dL 8.6-10.6 T PROTEIN (test code = 5722209790) 6.2 g/dL 6.3-8.2 L ALBUMIN (test code = 0413578070) 4.2 g/dL 3.5-5 ALK PHOS (test code = 8862488322) 94 U/L 34-122 ALTv (test code = 1742-6) 20 U/L 5-50 AST(SGOT) (test code = 6742483549) 24 U/L 13-40 eGFR (test code = 0959027441) mL/min/1.73m2 BUCK (test code = BUCK) Association of [...] or abnormalities in imaging tests). Lab Interpretation (test code = 85741-8) Abnormal [facility] WITH [id number] 03:55:33* Test Item Value Reference Range Interpretation Comme nts WBC (test code = 6690-2) See_Comment H [Automated [employer] ge] The system which generated this result transmitted reference range: 4.20 - 10.70 10*3/?L. The reference range was not used to interpret this result as normal/abnormal. RBC (test code = 789-8) See_Comment [Automated [employer] ge] The system which generated this result transmitted reference range: 4.26 - 5.52 10*6/?L. The reference range was not used to interpret this result as normal/abnormal. HGB (test code = 718-7) 14.5 g/dL 12.2-16.4 HCT (test code = 4544-3) 43.1 % 38.4-49.3 MCV (test code = 787-2) 87.6 fL 81.7-95.6 MCH (test code = 785-6) 29.5 pg 26.1-32.7 MCHC (test code = 786-4) 33.6 g/dL 31.2-35 RDW-SD (test code = 11720-5) 43.9 fL 38.5-51.6 RDW-CV (test code = 788-0) 13.7 % 12.1-15.4 PLT (test code = 777-3) See_Comment [Automated [employer] ge] The system which generated this result transmitted reference range: 150 - 328 10*3/?L. The reference range was not used to interpret this result as normal/abnormal. MPV (test code = 61290-4) 10.0 fL 9.8-13 NRBC/100 WBC (test code = 2197279944) See_Comment [Automated [employer] [facility] ssage] The system which generated this result transmitted reference range: 0.0 - 10.0 /100 WBCs. The reference range was not used to interpret this result as normal/abnormal. NRBC x10^3 (test code = 2853338936) See_Comment [Automated messa ge] The system which generated this result transmitted reference range: 10*3/?L. The reference range was not used to interpret this result as normal/abnormal. GRAN MAT (NEUT) % (test code = 770-8) 61.0 % IMM GRAN % (test code = 4966462588) 0.80 % LYMPH % (test code = 736-9) 25.1 % MONO % (test code = 5905-5) 8.0 % EOS % (test code = 713-8) 4.4 % BASO % (test code = 706-2) 0.7 % GRAN MAT x10^3(ANC) (test code = 2241038922) 6.94 10*3/uL 1.99-6.95 IMM GRAN x10^3 (test code = 3097533170) 0.09 10*3/uL 0-0.06 H LYMPH x10^3 (test code = 731-0) 2.85 10*3/uL 1.09-3.23 MONO x10^3 (test code = 742-7) 0.91 10*3/uL 0.36-1.02 EOS x10^3 (test code = 711-2) 0.50 10*3/uL 0.06-0.53 BASO x10^3 (test code = 704-7) 0.08 10*3/uL 0.01-0.09 Lab Interpretation (test code = 16695-6) Abnormal [facility]"
[2024-01-10 16:56] LABS: Absolute Lymphocytes (CBC) 1.6 K/uL (0.7-4.9); Hematocrit 38.8 % (39.6-49.0); Lymphocytes % 14.5 % (15.3-44.8); MCV 88.7 fL (80-100); MPV 8.3 fL (7.6-11.3); Platelets 215 thou/uL (152-406); RBC Red Blood Cell Count 4.37 M/uL (4.33-5.43)
[2024-01-10 16:58] LABS: Protime INR 1.03
[2024-01-10 17:08] LABS: Bilirubin Direct 0.2 mg/dL (0-0.2); Bilirubin Total 0.6 mg/dL (0.2-1.0)
[2024-01-10 17:09] LABS: Albumin 3.9 g/dL (3.4-5.0); Bilirubin Indirect, Calculated 0.4 mg/dL (0.2-0.8); Magnesium 2.1 mg/dL (1.6-2.4); Protein, Total 7.2 g/dL (6.4-8.2); Troponin High Sensitivity 7.4 pg/mL (<58.9)
--- NOTE | 2024-01-10 17:17 | RAD REPORT ---
EXAM DESCRIPTION: RAD - Chest Single View - 01/10/2024 5:10 pm CLINICAL HISTORY: tia Chest pain. COMPARISON: Chest Single View dated 07/17/2022; Chest Pa And Lat (2 Views) dated 02/18/2022; Chest Sin gle View dated 05/02/2017; CHEST SINGLE VIEW dated 07/19/2014 FINDINGS: Portable technique limits examination quality. The lungs are grossly clear. The heart is normal in size. No displaced fractures. IMPRESSION: No acute intrathoracic process suspected.
--- NOTE | 2024-01-10 17:23 | RAD REPORT ---
EXAM DESCRIPTION: CT - Head Brain Wo Cont - 01/10/2024 5:17 pm CLINICAL HISTORY: STROKE ALERT Headache, drowsiness, CVA symptomology COMPARISON: Sinus Wo Cont dated 07/17/2023; Head Brain Wo Cont dated 05/02/2017 TECHNIQUE: All CT scans are performed using dose optimization technique as appropriate and may inclu de automated exposure control or mA/KV adjustment according to patient size. FINDINGS: No intracranial hemorrhage, hydrocephalus or extra-axial fluid collection.Mild chronic per iventricular microvascular ischemic changes suspected.No areas of brain edema or evidence of midline shift. The paranasal sinuses and mastoids are clear. The calvarium is intact. IMPRESSION: No acute intracranial abnormality.
--- NOTE | 2024-01-10 17:28 | RAD REPORT ---
EXAM DESCRIPTION: CT - Head angio - 01/10/2024 5:18 pm CLINICAL HISTORY: vertigo, concern for tia Headache, drowsiness COMPARISON: Head Brain Wo Cont dated 01/10/2024; Sinus Wo Cont dated 07/17/2023 TECHNIQUE: CT angiography of the head was performed with MIPs. All CT scans are performed using dose optimization technique as appropriate and may include automated exposure control or mA/KV adjustment according to patient size. FINDINGS: No evidence of large vessel occlusion. No evidence of aneurysm is detected. No flow-limiti ng stenosis or vascular malformation identified. Antegrade flow is seen in the vertebral arteries. The left vertebral artery is mildly dominant. The visualized dural venous sinuses are patent. IMPRESSION: No significant flow abnormality is detected.
--- NOTE | 2024-01-10 17:32 | RAD REPORT ---
EXAM DESCRIPTION: CT - Neck Angio - 01/10/2024 5:17 pm CLINICAL HISTORY: vertigo, concern for tia Headache, drowsiness COMPARISON: No comparisons TECHNIQUE: CT angiography of the neck vessels was performed with MIPs. All CT scans are performed using dose optimization technique as appropriate and may include automated exposure control or mA/KV adjustment according to patient size. FINDINGS: Motion degradation limits quality of study. A left aortic arch is identified with normal three vessel configuration of the great vessels. No significant flow abnormality is seen of the common carotid bilaterally. No significant stenosis is identified involving the cervical segments of both internal carotid arteri es. Normal flow is seen within both vertebral arteries. IMPRESSION: No significant flow abnormality of the neck vessels is identified. NASCET criteria used. Mild 0-49% stenosis Moderate 50-69% stenosis Severe 70-99% stenosis
--- NOTE | 2024-01-10 19:00 | EDPHYS ---
Physician Documentation [facility] Name: Brijesh Reveles Age: 78 yrs Sex: Male : 1945 Arrival Date: 01/10/2024 Time: 16:08 Bed 13 Private MD: ED Physician Rodney Cardozo HPI: 01/10 18:59 This 78 yrs old Male presents to ER via EMS with complaints of Dizziness, Blurred rt Vision, Weakness. 18:59 Patient presents to the ED with dizziness described as the room spinning as well as a rt double vision. He states that his right eye was drooping, no other reported facial drooping noted. No weakness in the arms or legs. This occurred when he was mowing the lawn. The symptoms have completely resolved, patient has no neurologic symptoms presently. Denies other acute complaints, symptoms are moderate in severity, no other aggravating or alleviating factors.. Historical: - Allergies: 16:17 No Known Allergies; ll1 - PMHx: 16:17 ADD/ADHD; Arthritis; Depression; Hyperlipidemia; Hypertension; Hypothyroidism; ll1 - Immunization history:: Adult Immunizations up to date. - Social history:: Smoking status: Patient denies any tobacco usage or history of. - Family history:: not pertinent. ROS: 18:59 Constitutional: Negative for fever, chills, and weight loss, Cardiovascular: Negative rt for chest pain, palpitations, and edema, Respiratory: Negative for shortness of breath, cough, wheezing, and pleuritic chest pain, Abdomen/GI: Negative for abdominal pain, nausea, vomiting, diarrhea, and constipation, MS/Extremity: Negative for injury and deformity, Skin: Negative for injury, rash, and discoloration, Psych: Negative for depression, anxiety, suicide ideation, homicidal ideation, and hallucinations, 18:59 Eyes: Positive for visual disturbance, Negative for pain, 18:59 Neuro: Positive for dizziness, gait disturbance, weakness, Exam: 17:16 ECG was reviewed by the Attending Physician. rt 18:59 Constitutional: This is a well developed, well nourished patient who is awake, alert, rt and in no acute distress. Head/Face: Normocephalic, atraumatic. Chest/axilla: Normal chest wall appearance and motion. Nontender with no deformity. No lesions are appreciated. Cardiovascular: Regular rate and rhythm with a normal S1 and S2. No gallops, murmurs, or rubs. Normal PMI, no JVD. No pulse deficits. Respiratory: Lungs have equal breath sounds bilaterally, clear to auscultation and percussion. No rales, rhonchi or wheezes noted. No increased work of breathing, no retractions or nasal flaring. Abdomen/GI: Soft, non-tender, with normal bowel sounds. No distension or tympany. No guarding or rebound. No evidence of tenderness throughout. Skin: Warm, dry with normal turgor. Normal color with no rashes, no lesions, and no evidence of cellulitis. MS/ Extremity: Pulses equal, no cyanosis. Neurovascular intact. Full, normal range of motion. Psych: Awake, alert, with orientation to person, place and time. Behavior, mood, and affect are within normal limits. 18:59 Eyes: Extraocular muscles are intact, no visual field deficits, head impulse and test of skew negative. 18:59 Neuro: Cranial nerves II through XII intact, strength and sensation intact in upper and lower extremities, Vital Signs: 16:14 BP 138 / 92; Pulse 73; Resp 16 S; Pulse Ox 97% on R/A; Weight 122.47 kg (R); Height 6 ll1 ft. 4 in. (R); 17:25 BP 138 / 78; Pulse 72; Resp 20 S; Pulse Ox 97% on R/A; kc6 18:19 BP 121 / 65; Pulse 65; Resp 17 S; Pulse Ox 96% on R/A; kc6 19:13 BP 134 / 72; Pulse 91; Resp 16; Pulse Ox 97% on R/A; jb4 20:38 BP 105 / 86; Pulse 72; Resp 16; Pulse Ox 94% on R/A; jb4 16:14 Body Mass Index 32.87 (122.47 kg, 193.04 cm) ll1 NIH Stroke Scale Scores: 16:19 NIHSS Score: 0 ll1 MDM: 16:19 Patient medically screened. rt 18:59 Differential diagnosis: CVA, TIA, vertigo. Data reviewed: vital signs, nurses notes, rt lab test result(s), EKG, radiologic studies. Consideration of Admission/Observation Patient was admitted/placed on observation. Management of patient was discussed with the following: Hospitalist: Agrees to admit. Primary Care Provider: Attempted to contact the patient's PCP via phone and text message, no answer. I considered the following discharge prescriptions or medication management in the emergency department Medications were administered in the Emergency Department. See MAR. 19:02 Discussion of test interpretation with radiology: I had a discussion with radiology rt regarding a test interpretation. No intracranial hemorrhage. Care significantly affected by the following chronic conditions: Hypertension. Counseling: I had a detailed discussion with the patient and/or guardian regarding the historical points, exam findings, and any diagnostic results supporting the discharge/admit diagnosis, lab results, radiology results, the need for further work-up and treatment in the hospital. ED course: Symptoms resolved prior to arrival, he is not a tPA candidate as the NIH is 0. 01/10 16:32 Order name: Basic Metabolic Panel; Complete Time: 17:10 rt 01/10 16:32 Order name: CBC with Diff; Complete Time: 17:10 rt 01/10 16:32 Order name: Hepatic Function; Complete Time: 17:10 01/10 16:32 Order name: High Sensitivity Troponin; Complete Time: 17:10 01/10 16:32 Order name: Magnesium; Complete Time: 17:10 rt 01/10 16:32 Order name: Protime (+inr); Complete Time: 17:10 rt 01/10 16:32 Order name: Ptt, Activated; Complete Time: 17:10 01/10 20:19 Order name: Lipid Profile EDTX 01/10 20:19 Order name: Lipid Profile EDTX 01/10 16:32 Order name: CT Head Angio; Complete Time: 17:42 rt 01/10 16:32 Order name: CT Neck Angio; Complete Time: 17:42 01/10 16:32 Order name: Stroke CXR 1 View; Complete Time: 17:42 rt 01/10 17:14 Order name: Head Brain Wo Cont; Complete Time: 17:42 EDMS 01/10 16:32 Order name: EKG; Complete Time: 16:35 01/10 16:32 Order name: Accucheck; Complete Time: 16:43 rt 01/10 16:32 Order name: Cardiac monitoring; Complete Time: 16:43 rt 01/10 16:32 Order name: EKG - Nurse/Tech; Complete Time: 16:43 01/10 16:32 Order name: IV Saline Lock; Complete Time: 16:43 rt 01/10 16:32 Order name: Labs collected and sent; Complete Time: 16:43 rt 01/10 16:32 Order name: NPO; Complete Time: 16:33 rt 01/10 16:32 Order name: O2 Per Protocol; Complete Time: 16:33 rt 01/10 16:32 Order name: O2 Sat Monitoring; Complete Time: 16:33 rt 01/10 16:32 Order name: Stroke Swallow Screen; Complete Time: 16:33 rt EC:16 Rate is 70 beats/min. Rhythm is regular, Normal Sinus Rhythm with No ectopy. QRS [place] rt is Normal. IN interval is normal. QRS interval is normal. QT interval is normal. No Q waves. T waves are Normal. No ST changes noted. Interpreted by me. Administered Medications: 19:11 Drug: Aspirin PO 325 mg PO once Route: PO; jb4 Disposition Summary: 01/10/24 18:59 Hospitalization Ordered Notes: Hospitalization Status: Observation rt Location: Telemetry/MedSurg (observation) rt Condition: Stable rt Problem: new rt Symptoms: are resolved rt Bed/Room Type: Standard rt Room Assignment: 206(01/10/24 20:26) ty Provider: Davide Linn(01/10/24 20:30) ra Diagnosis - Diplopia rt - Vertigo rt Forms: - Medication Reconciliation Form rt - SBAR form rt - Leadership Thank You Letter rt NIH Stroke Scale - NIH Stroke Score Date: 01/10/2024 Time: 16:19 Total Score = 0 10. Dysarthria (speech clarity - read or repeat words) - 0(Normal) 11. Extinction and Inattention (visual/tactile/auditory/spatial/personal) - 0(No abnormality) 1a. Level of Consciousness (LOC) - 0(Alert) 1b. Level of Consciousness (LOC) (Month \T\ Age) - 0(Both) 1c. LOC Commands (Open \T\ Closes Eyes/Dairy Quality Assurance Officer) - 0(Both) 2. Best Gaze (Lateral Gaze Paresis) - 0(Normal) 3. Visual Field Loss - 0(No visual loss) 4. Facial Palsy - 0(Normal) 5a. Left Arm: Motor (10-second hold) - 0(No drift) 5b. Right Arm: Motor (10-second hold) - 0(No drift) 6a. Left Leg: Motor (5-second hold - always test supine) - 0(No drift) 6b. Right Leg: Motor (5-second hold - always test supine) - 0(No drift) 7. Limb Ataxia (finger/nose \T\ heel/tijerina - test with eyes open) - 0(Absent) 8. Sensory Loss (pinprick arms/legs/face) - 0(Normal) 9. Best Language: Aphasia (description/naming/reading) - 0(No aphasia) Initials: ll1 Signatures: Dispatcher [employer] EDMS Xenia Becerra, PRINT LINE INSPECTOR-C PRINT LINE INSPECTOR-CkChandu Bowie RN RN jb4 Mary Madrid RN RN ll1 Rodney Cardozo MD MD rt Mark Juan ty Corrections: (The following items were deleted from the chart) 17:14 16:35 CT-STROKE BRAIN W/O CONTRAST+CT.RAD.BRZ ordered. EDMS EDMS 20:26 18:59 rt ty 20:30 18:59 Fred Mendieta rt kb
--- NOTE | 2024-01-10 19:00 | ER ---
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 pt also states his right completely closed and he couldn't open it. pts symptoms totally resolved upon EMS arrival. BGL en route 101, 4mg of IV zofran given en route. Coronavirus screen: At this time, the client does not indicate any symptoms associated with coronavirus-19. Ebola Screen: No symptoms or risks identified at this time. Initial Sepsis Screen: Does the patient meet any 2 criteria? No. Patient's initial sepsis screen is negative. Does the patient have a suspected source of infection? No. Patient's initial sepsis screen is negative. Risk Assessment: Do you want to hurt yourself or someone else? Patient reports no desire to harm self or others. Onset of symptoms was January 10, 2024. 16:14 Method Of Arrival: EMS: [facility] 16:14 Acuity: DIVYA 3 ll1 Triage Assessment: 16:17 General: Appears in no apparent distress. comfortable, well groomed, well developed, ll1 Behavior is calm, cooperative, appropriate for age. Pain: Denies pain. EENT: No signs and/or symptoms were reported regarding the EENT system. Neuro: Level of Consciousness is awake, alert, obeys commands, Oriented to person, place, time, situation, Appropriate for age Reports blurred vision dizziness, weakness in left arm and left leg. Cardiovascular: Denies chest pain, Heart tones S1 S2 present Capillary refill < 3 seconds. Respiratory: Airway is patent Trachea midline Respiratory effort is even, unlabored, Respiratory pattern is regular, symmetrical. GI: No signs and/or symptoms were reported involving the gastrointestinal system. : No signs and/or symptoms were reported regarding the genitourinary system. Derm: No signs and/or symptoms reported regarding the dermatologic system. Skin is intact, is healthy with good turgor, Skin is pink, warm \T\ dry. Musculoskeletal: No signs and/or symptoms reported regarding the musculoskeletal system. Circulation, motion, and sensation intact. Capillary refill < 3 seconds, Range of motion: intact in all extremities. Historical: - Allergies: 16:17 No Known Allergies; ll1 - PMHx: 16:17 ADD/ADHD; Arthritis; Depression; Hyperlipidemia; Hypertension; Hypothyroidism; ll1 - Immunization history:: Adult Immunizations up to date. - Social history:: Smoking status: Patient denies any tobacco usage or history of. - Family history:: not pertinent. Screenin:19 [facility] ED Fall Risk Assessment (Adult) History of falling in the last 3 months, ll1 including since admission No falls in past 3 months (0 pts) Confusion or Disorientation No (0 pts) Intoxicated or Sedated No (0 pts) Impaired Gait No (0 pts) Mobility Assist Device Used No (0 pt) Altered Elimination No (0 pt) Score/Fall Risk Level 0 - 2 = Low Risk. Abuse screen: Denies threats or abuse. Denies injuries from another. Nutritional screening: No deficits noted. Tuberculosis screening: No symptoms or risk factors identified. 16:33 [facility] Protocol Brief Cognitive Screen What is your name? Normal, Where are you kc6 right now? Normal, What year is it? Normal. Oral Mechanism Examination Facial Symmetry: Normal, Motion: Normal, Lip Closure: Normal, Oral Mechanism Result: Normal. 3 oz Water Swallow Challenge: Pt able to drink all water without stopping, coughing, choking or throat clearing: Yes Result: PASS MD Notified: Rodney Cardozo MD. Assessment: 16:19 VAN Scoring: Arm Drift: Patients demonstrates NO arm weakness. Patient is VAN Negative. ll1 Visual Disturbance: No visual disturbance noted. Aphasia: No aphasia noted. Neglect: No neglect noted. 17:25 Reassessment: Patient appears in no apparent distress at this time. No changes from kc6 previously documented assessment. Patient and/or family updated on plan of care and expected duration. Pain level reassessed. Patient is alert, oriented x 3, equal unlabored respirations, skin warm/dry/pink. 18:19 Reassessment: Patient appears in no apparent distress at this time. No changes from kc6 previously documented assessment. Patient and/or family updated on plan of care and expected duration. Pain level reassessed. Patient is alert, oriented x 3, equal unlabored respirations, skin warm/dry/pink. 19:13 Reassessment: Patient appears in no apparent distress at this time. Patient and/or jb4 family updated on plan of care and expected duration. Pain level reassessed. Patient is alert, oriented x 3, equal unlabored respirations, skin warm/dry/pink. Pt able to stand and ambulate without issue. 20:38 Reassessment: Patient appears in no apparent distress at this time. Patient and/or jb4 family updated on plan of care and expected duration. Pain level reassessed. Patient is alert, oriented x 3, equal unlabored respirations, skin warm/dry/pink. 21:04 Reassessment: attempted to call report, on hold for 10 minutes. instructed to wait for jb4 call back. Vital Signs: 16:14 BP 138 / 92; Pulse 73; Resp 16 S; Pulse Ox 97% on R/A; Weight 122.47 kg (R); Height 6 ll1 ft. 4 in. (R); 17:25 BP 138 / 78; Pulse 72; Resp 20 S; Pulse Ox 97% on R/A; kc6 18:19 BP 121 / 65; Pulse 65; Resp 17 S; Pulse Ox 96% on R/A; kc6 19:13 BP 134 / 72; Pulse 91; Resp 16; Pulse Ox 97% on R/A; jb4 20:38 BP 105 / 86; Pulse 72; Resp 16; Pulse Ox 94% on R/A; jb4 16:14 Body Mass Index 32.87 (122.47 kg, 193.04 cm) ll1 NIH Stroke Scale Scores: 16:19 NIHSS Score: 0 ll1 ED Course: 16:14 Patient arrived in ED. ll1 16:14 Rodney Cardozo MD is Attending Physician. rt 16:16 Triage completed. ll1 16:17 Arm band placed on. ll1 16:20 Bernadine Savage, ISMAEL is Primary Nurse. kc6 16:20 Patient has correct armband on for positive identification. Bed in low position. Call kc6 light in reach. Side rails up X2. Adult w/ patient. Client placed on continuous cardiac and pulse oximetry monitoring. NIBP monitoring applied. environmental monitoring specialist on. 16:20 Maintain EMS IV. Dressing intact. Good blood return noted. Site clean \T\ dry. Gauge \T\ ll 1 site: 20G RHAND. Patient maintains SpO2 saturation greater than 95% on room air. 17:12 Stroke CXR 1 View In Process Unspecified. EDMS 17:18 CT Head Angio In Process Unspecified. EDMS 17:19 CT Neck Angio In Process Unspecified. EDMS 17:19 Head Brain Wo Cont In Process Unspecified. EDMS 18:59 Fred Mendieta MD is Hospitalizing Provider. rt 19:00 Report given to ISMAEL Nettles. kc6 20:30 Davide Linn MD is Hospitalizing Provider. kb 21:35 No provider procedures requiring assistance completed. Patient admitted, IV remains in jb4 place. Administered Medications: 19:11 Drug: Aspirin PO 325 mg PO once Route: PO; jb4 Outcome: 18:59 Decision to Hospitalize by Provider. rt 21:35 Admitted to Med/surg accompanied by nurse, via wheelchair, room 206, jb4 21:35 Condition: stable 21:35 Discharge instructions given to patient, Instructed on the need for admit, Demonstrated understanding of instructions, 21:35 Patient left the ED. jb4 NIH Stroke Scale - NIH Stroke Score Date: 01/10/2024 Time: 16:19 Total Score = 0 10. Dysarthria (speech clarity - read or repeat words) - 0(Normal) 11. Extinction and Inattention (visual/tactile/auditory/spatial/personal) - 0(No abnormality) 1a. Level of Consciousness (LOC) - 0(Alert) 1b. Level of Consciousness (LOC) (Month \T\ Age) - 0(Both) 1c. LOC Commands (Open \T\ Closes Eyes/Sofa Cover Inspector) - 0(Both) 2. Best Gaze (Lateral Gaze Paresis) - 0(Normal) 3. Visual Field Loss - 0(No visual loss) 4. Facial Palsy - 0(Normal) 5a. Left Arm: Motor (10-second hold) - 0(No drift) 5b. Right Arm: Motor (10-second hold) - 0(No drift) 6a. Left Leg: Motor (5-second hold - always test supine) - 0(No drift) 6b. Right Leg: Motor (5-second hold - always test supine) - 0(No drift) 7. Limb Ataxia (finger/nose \T\ heel/tijerina - test with eyes open) - 0(Absent) 8. Sensory Loss (pinprick arms/legs/face) - 0(Normal) 9. Best Language: Aphasia (description/naming/reading) - 0(No aphasia) Initials: ll1 Signatures: Dispatcher [employer] Xenia Yancey, MANAGER PROCESS-C MANAGER PROCESS-CkChandu Bowie RN RN jb4 Mary Madrid RN RN ll1 Bernadine Savage RN RN kc6 Rodney Cardozo MD MD rt
[2024-01-10] MEDS ORDERED: ASPIRIN 325 MG TAB ONE (19:09)
[2024-01-10] MEDS ORDERED: ACETAMINOPHEN 325 MG TABLET PO PRN (20:12)
[2024-01-10] MEDS ORDERED: ONDANSETRON 4 MG/2 ML VIAL IV PRN (20:12)
--- NOTE | 2024-01-10 20:18 | P.HP ---
Certification for Inpatient Patient admitted to: Observation With expected LOS: <2 Midnights Practitioner: I am a practitioner with admitting privileges, knowledge of patient current condition, hospital course, and medical plan of care. Services: Services provided to patient in accordance with Admission requirements found in Title 42 Section 412.3 of the Code of Federal Regulations Patient History Date of Service: 01/10/24 Allergies No Known Allergies Allergy (Verified 06/08/23 10:29) Home Medications: Losartan Potassium 1 tab PO DAILY 05/03/17 Ropinirole HCl 1 tab PO BID 05/03/17 Sertraline [Zoloft*] 1 tab PO DAILY 05/03/17 Atorvastatin Calcium [Lipitor] 40 mg PO BEDTIME 02/18/22 Levothyroxine [Synthroid*] 88 mcg PO [id number] 02/18/22 Tamsulosin HCl 2.4 mg PO DAILY 02/18/22 - Past Medical/Surgical History Diabetic: No -: HTN -: MARBELLA -: Sleep Apnea -: Restless leg syndrome -: Hypothyroid -: Anxiety -: left hip replacement -: right ankle tendon repair -: stitches left arm after cut -: hammer toe -: rotator cuff repair right shoulder -: left knee arthroscopy - Family History Father -: Lung disease, Cancer, Other (see notes) Notes: colon cancer Mother -: Hypertension, Stroke - Social History Alcohol use: No CD- Drugs: No Caffeine use: Yes Physical Examination - Studies Laboratory Data (last 24 hrs) 01/10/24 01/10/24 01/10/24 16:41 16:41 16:41 WBC 11.20 H Hgb 13.0 L Hct 38.8 L Plt Count 215 PT 11.3 INR 1.03 APTT 31.9 Sodium 137 Potassium 4.0 BUN 31 H Creatinine 1.28 Glucose 96 Magnesium 2.1 Total Bilirubin 0.6 AST 16 ALT 29 Alkaline Phosphatase 78 Assessment and Plan - Advance Directives Does patient have a Living Will: No Does patient have a Durable POA for Healthcare: No
[2024-01-10] MEDS: NA CHLORIDE 0.9% 1,000 ML IV SCH (22:05)
[2024-01-10 22:50] VITALS: BMI 32.1
[2024-01-11 06:00] VITALS: TEMP 98
[2024-01-11] MEDS ORDERED: INFLUENZA VACCINE (for 6+ mo) 0.5 ML DOSE IMVAC ONE (08:00)
[2024-01-11] MEDS: ENOXAPARIN 40 MG/0.4 ML SQ SCH (08:49)
[2024-01-11 11:35] VITALS: BP 141/76; O2SAT 95
--- NOTE | 2024-01-11 11:54 | P.DS ---
Admission Date: 01/10/24 Discharge Date: 01/11/24 Disposition: ROUTINE DISCHARGE Discharge Condition: GOOD - Problems (1) Atrial fibrillation Current Visit: Yes Status: Acute (2) Restless leg syndrome Current Visit: Yes Status: Acute (3) HTN (hypertension) Current Visit: No Status: Acute (4) TIA (transient ischemic attack) Onset Date: 05/03/17 Current Visit: No Status: Acute Brief History of Present Illness: Patient had a 1-20min episode of double vision and blurring of his vision. He called an ambulance and came to the ER. His symptoms had resolved at this time. he has a history of afib and sleep apnea. He has not been taking his testosterone. Which is good as it can cause a stroke. The patient is otherwise doing well Hospital Course: Have discussed the patient with Dr. Miller and Dr. Breaux. will discharge him on eliquis, aspirin every 3rd day, folic acid and magnesium. Have him follow up with the above doctors. Would like him to have the inspiron surgery with Dr. Breaux. This will improve his sleep apnea and atrial fib. make the patient less at risk for a cva. Will have him d/c the testosterone for decreased stroke risk. Have spent 40min on patient care. Vital Signs/Physical Exam: Temp Pulse Resp BP Pulse Ox 98.0 F 68 16 141/76 H 95 01/11/24 08:00 01/11/24 08:00 01/11/24 08:00 01/11/24 08:00 01/11/24 08:00 General: Alert, In no apparent distress HEENT: Atraumatic, PERRLA, EOMI Neck: Supple, JVD not distended Respiratory: Clear to auscultation bilaterally, Normal air movement Cardiovascular: Regular rate/rhythm, Normal S1 S2 Gastrointestinal: Normal bowel sounds, No tenderness Musculoskeletal: No tenderness Integumentary: No rashes Neurological: Normal speech, Normal tone, Normal affect Lymphatics: No axilla or inguinal lymphadenopathy Laboratory Data at Discharge: WBC 11.20 thou/uL (4.3-10.9) H 01/10/24 16:41 Hgb 13.0 g/dL (13.6-17.9) L 01/10/24 16:41 Hct 38.8 % (39.6-49.0) L 01/10/24 16:41 Plt Count 215 thou/uL (152-406) 01/10/24 16:41 PT 11.3 SECONDS (9.5-12.5) 01/10/24 16:41 INR 1.03 01/10/24 16:41 APTT 31.9 SECONDS (24.3-36.9) 01/10/24 16:41 Sodium 137 mEq/L (136-145) 01/10/24 16:41 Potassium 4.0 mEq/L (3.5-5.1) 01/10/24 16:41 BUN 31 mg/dL (7-18) H 01/10/24 16:41 Creatinine 1.28 mg/dL (0.70-1.30) 01/10/24 16:41 Glucose 96 mg/dL (74-106) 01/10/24 16:41 Magnesium 2.1 mg/dL (1.6-2.4) 01/10/24 16:41 Total Bilirubin 0.6 mg/dL (0.2-1.0) 01/10/24 16:41 AST 16 U/L (15-37) 01/10/24 16:41 ALT 29 U/L (16-61) 01/10/24 16:41 Alkaline Phosphatase 78 U/L (45-117) 01/10/24 16:41 Triglycerides 190 mg/dL (<150) H 01/11/24 02:36 Cholesterol 101 mg/dL (<200) 01/11/24 02:36 HDL Cholesterol 39 mg/dL (40-60) L 01/11/24 02:36 Cholesterol/HDL Ratio 2.59 01/11/24 02:36 Home Medications: Ropinirole HCl 1 tab PO BID 05/03/17 Sertraline [Zoloft*] 1 tab PO DAILY 05/03/17 Atorvastatin Calcium [Lipitor] 40 mg PO BEDTIME 02/18/22 Levothyroxine [Synthroid*] 88 mcg PO [id number] 02/18/22 Amlodipine Besylate 10 mg PO DAILY 01/10/24 Labetalol HCl [Trandate] 300 mg PO BID 01/10/24 Apixaban [Eliquis] 5 mg PO BID #180 tablet 01/11/24 Aspirin [Aspirin EC 81 MG] 81 mg PO EVERY 3RD DAY 90 Days #90 tab 01/11/24 Folic Acid 1 mg PO DAILY 90 Days #90 tab 01/11/24 Magnesium Oxide [Mag-Oxide] 200 mg PO DAILY 90 Days #90 tab 01/11/24 New Medications: Aspirin [Aspirin EC 81 MG] 81 mg PO EVERY 3RD DAY 90 Days #90 tab Apixaban [Eliquis] 5 mg PO BID #180 tablet Folic Acid 1 mg PO DAILY 90 Days #90 tab Magnesium Oxide [Mag-Oxide] 200 mg PO DAILY 90 Days #90 tab Diet: AHA Activity: Ad maury Followup: Davide Linn MD [Primary Care Provider] - 1 Week Shaniqua Breaux MD [ACTIVE - CAN ADMIT] - 1-2 Weeks Ba Miller MD [ASSOCIATE-ACTIVE - CAN ADMIT] - 1-2 Weeks Time spent managing pt's care (in minutes): 40
[2024-01-11] MEDS ORDERED: LABETALOL HCL 100 MG TAB PO SCH (12:00)
[2024-01-11] MEDS ORDERED: SERTRALINE HCL 100 MG TAB PO SCH (12:00)
[2024-01-11] MEDS ORDERED: AMLODIPINE 10 MG TAB PO SCH (12:00)
--- NOTE | 2024-01-11 14:41 | EKG ---
Test Date: 2024-01-10 Test Time: 16:36:13 Card Runner: YOGESH MEASUREMENT RESULTS: Intervals: Rate: 70 SD: 168 QRSD: 102 QT: 420 QTc: 453 Welch: P: 60 SD: 168 QRS: 20 T: 42 INTERPRETIVE STATEMENTS: Normal sinus rhythm Normal ECG Compared to ECG 06/08/2023 10:39:58 No significant changes Electronically Signed On 01-11-24 14:39:42 MOTION STUDY TECHNICIAN by Adelfo James
[2024-01-11] MEDS ORDERED: ROPINIROLE HCL 1 MG TAB PO SCH (17:00)
[2024-01-11] MEDS ORDERED: ATORVASTATIN 40 MG TAB PO SCH (21:00)
[2024-01-11] MEDS ORDERED: ROPINIROLE HCL 5 MG PO SCH (21:00)
[2024-01-11] MEDS ORDERED: LABETALOL HCL 300 MG PO SCH (21:00)
[2024-01-12] MEDS ORDERED: LEVOTHYROXINE SOD 0.088 MG TAB PO SCH (06:00)
[2024-01-12] MEDS ORDERED: SERTRALINE HCL 100 MG TAB PO SCH (09:00)
[2024-01-12] MEDS ORDERED: AMLODIPINE 10 MG TAB PO SCH (09:00)
== END 2024-01-11 13:05 | disposition home or self-care (01) ==
LOC: ER 16:08 → 2ND 20:12
PROVIDERS: ADMIT Internal Medicine Nephrology; ATTEND Internal Medicine
DX: G45.9 Transient cerebral ischemic attack, unspecified (principal); I48.91 Unspecified atrial fibrillation; H53.2 Diplopia; G25.81 Restless legs syndrome; R42 Dizziness and giddiness; E78.5 Hyperlipidemia, unspecified; I10 Essential (primary) hypertension; E03.9 Hypothyroidism, unspecified; F32.A Depression, unspecified; F90.9 Attention-deficit hyperactivity disorder, unspecified type; G47.30 Sleep apnea, unspecified; Z91.148 Patient's other noncompliance with medication regimen for other reason
CPT/HCPCS: 36415; 70450; 70496; 70498; 71045; 80048; 80061; 80076; 82565; 83735; 84484; 85025; 85610; 85730; 93005; G0378; J1650; J7030; Q9967

== ENCOUNTER 2024-05-31 06:24 | Day surgery (SDC) | payer OTHER ==
[2024-05-28 11:28] LABS: Absolute Eosinophils 0.5 K/uL (0-0.5); Absolute Lymphocytes (CBC) 1.9 K/uL (0.7-4.9); Absolute Monocytes 0.7 K/uL (0.1-1.3); Basophils % 0.6 % (0-1.3); Eosinophils % 6.4 % (0-4.4); Hematocrit 40.7 % (39.6-49.0); Hemoglobin 13.3 g/dL (13.6-17.9); MCH 29.8 pg (27.0-35.0); MCHC 32.8 g/dL (32.0-36.0); MCV 91.1 fL (80-100); MPV 8.3 fL (7.6-11.3); Monocytes % 8.9 % (3.3-12.3); Neutrophils % 61.1 % (41.7-73.7); Nucleated Red Blood Cells % 0.1 % (0-0); Platelets 253 thou/uL (152-406); RBC Red Blood Cell Count 4.47 M/uL (4.33-5.43); Red Cell Distribution Width 14.4 % (12.1-15.2)
[2024-05-28 11:32] LABS: PT Prothrombin Time 12.3 SECONDS (9.4-12.5); Protime INR 1.12
[2024-05-28 11:41] LABS: Anion Gap 7.2 mEq/L (5.0-15.0); Potassium 4.2 mEq/L (3.5-5.1)
[2024-05-31] MEDS ORDERED: CEFAZOLIN SODIUM 1 GM/VIAL ONE (06:37)
[2024-05-31] MEDS: Ringers Lactate 1,000 ML IV ONE ×2 (06:48→10:00)
[2024-05-31] MEDS ORDERED: ROCURONIUM 50 MG/5 ML VIAL IV ONE (07:02)
[2024-05-31] MEDS ORDERED: LIDOCAINE 1% MPF 5 ML VIAL ONE (07:02)
[2024-05-31] MEDS ORDERED: propofoL 200 MG/20 ML VIAL IV ONE ×2 (07:04→08:45)
[2024-05-31] MEDS ORDERED: MIDAZOLAM HCL 2 MG/2 ML INJ ONE (07:07)
[2024-05-31] MEDS ORDERED: FENTANYL CITR 100 MCG/2 ML ONE ×3 (07:07→08:59)
[2024-05-31] MEDS ORDERED: SUCCINYLCHOLINE 20 MG/ML (10 ML) IV ONE (07:13)
[2024-05-31] MEDS: SCOPOLAMINE HYDROBROMIDE PATCH TD ONE (07:13)
[2024-05-31] MEDS: CEFAZOLIN SODIUM 2 GM/VIAL ONE (07:28)
[2024-05-31] MEDS ORDERED: KETAMINE HCL IN 0.9 % NACL 50 MG/5 ML SYRINGE IV ONE (07:43)
[2024-05-31] MEDS ORDERED: dexAMETHasone 4 MG/ML VIAL ONE (07:52)
[2024-05-31] MEDS ORDERED: ONDANSETRON 4 MG/2 ML VIAL ONE (07:52)
[2024-05-31] MEDS ORDERED: KETOROLAC 30 MG/ML INJ ONE (07:52)
[2024-05-31] MEDS ORDERED: HYDROMORPHONE HCL 2 MG/ML inj ONE (08:03)
[2024-05-31] MEDS: LIDOCAINE HCL/EPINEPHRINE 20 ML MDV ONE (08:03)
[2024-05-31] MEDS ORDERED: EPHEDRINE SULF 50 MG/ML VIAL ONE ×2 (08:06→08:51)
--- NOTE | 2024-05-31 10:43 | P.OP ---
Date of Service: 05/31/24 Surgeon: Dr. Shaniqua Breaux Referring physician: Dr. Linn CPT: 25185 insertion of hypoglossal nerve neurostimulator electrode and generator and breathing sensor electrode Preoperative diagnosis: Obstructive sleep apnea with positive airway pressure intolerance, body mass index 33.4 Postoperative diagnosis: Same Anesthesia: General via endotracheal tube Estimated blood loss: 5 mL Complications: [None] Intraoperative findings: Standard anatomy and insertion Brief clinical history: This is a 79-year-old patient with a history of moderate to severe obstructive sleep apnea and an associated body mass index of 33.4. The patient was intolerant and unable to achieve benefit from positive pressure therapy. He had history of TIA and concerns for cardiac issues as a result of his untreated CRS. He underwent surgical management for nasal obstruction with improvement in daytime nasal airway but persistent inability to tolerate CPAP. the patient has passed the clinical, polysomnographic, and endoscopic screening criteria and presents today for implant Procedure description: The patient was brought to the operating room and placed under general anesthesia via endotracheal intubation. The head of bed was turned 180 degrees. The patient's neck and external anatomy was palpated and examined with planned incisions marked with a surgical pen. Monitoring electrodes were placed within the genioglossus and hypoglossal muscle and connected to the NIMS box for intraoperative nerve monitoring. The grounding electrode was placed in the patient's left shoulder. The patient's face, neck, and chest was prepped and draped in a sterile fashion with the head turned to the left for best exposure of the right neck. A modified submandibular incision was made through the skin, approximately 2 cm below the inferior aspect of the mandible. Dissection was carried down through the subcutaneous tissue and platysma. The platysma was divided and additional dissection was carried out for identification of the anterior/inferior border of the submandibular gland. The digastric tendon was identified. 2 silk sutures were placed in the digastric tendon to aid in inferior and anterior retraction. Dissection continued down into the digastric triangle and the posterior border of the mylohyoid muscle was freed and retracted anteriorly. With balanced retraction, the hypoglossal nerve was identified and carefully dissected up towards the floor of the mouth. The superior/posterior branches innervating the hyoglossus muscle were identified visually with anatomic clues and NIM stimulation. An overlying vein was carefully elevated from the superior and superficial aspect of the nerve and divided. With careful dissection of the fascia, this was elevated off of the nerve. The nerve stimulator was used to assist in identifying the appropriate nerve branches. Once the anterior/inferior branches of the hypoglossal nerve were isolated a vein loop was passed around the planned inclusion branches and further dissection of the fascia from the nerve tissue was performed. Once an adequate length of the nerve had been freed from underlying tissue attachments, the cuff electrode for the hypoglossal nerve stimulator ([id number]; [id number]) was placed distal to these branches innervating the genioglossus, transverse, and vertical muscles. The stimulation lead was anchored to the digastric tendon using the 2 previously placed silk sutures. Slack between the cuff and the anchor was gently tucked deep to the submandibular gland. A second 5 cm incision was made in the right upper chest over the second intercostal space, approximately 3 cm lateral to the sternal margin. Dissection was carried down through the skin and subcutaneous tissue to the fascia of the pectoralis muscle. A suprafascial inferior pocket for the generator was created with blunt dissection and the LigaSure. The pectoralis major fascia was disse cted directly over the second intercostal space with subsequent blunt dissection through the muscle body. The pectoralis was retracted to expose the fatty layer just superficial to the external intercostal muscle. The fatty layer was carefully and bluntly dissected to expose the external intercostal muscles. A small fasciotomy through the external intercostals was performed and the respiratory sensing lead (C1778; [id number]) was advanced with the sensor facing the pleura into the interfascial plane between the external and internal intercostals. The sensing lead was anchored with 3-0 silk to the fascia of the external intercostals. Secondary anchoring sutures of 3-0 silk were placed to the pectoralis major fascia, allowing adequate slack between the anchors. The stimulation lead was then tunneled in a subplatysmal plane with blunt dissection under direct visualization and brought out to the subclavicular pocket where both the stimulation lead and respiratory sensing lead were connected to the implantable pulse generator, using the 2 person, 3 handed approach. The implantable pulse generator ([id number]; [id number]) was placed in the subclavicular subcutaneous pocket ensuring lead body was deep to the generator and secured with air knots to the pectoralis fascia using 2-0 silk suture. Diagnostic evaluation confirmed good placement of the stimulation cuff as demonstrated by activation of the genioglossus, and transverse and vertical muscles resulting in unhindered, stiffened tongue protrusion confirmed visually. Diagnostic evaluation also confirmed good respiratory sensor placement as demonstrated by sensing waveform with good rise and fall associated with patient respirations. All the wounds were thoroughly irrigated and closed in 2 layers with deep Polysorb sutures and 4-0 Monocryl subcuticular sutures. Mastisol and Steri- Strips were applied followed by pressure dressings. The patient was awakened, extubated, and transferred to the recovery room in stable condition. I was present for and performed the entire procedure. All sponge and needle counts were confirmed correct by the operating room staff prior to final closure. Postoperative plan: The patient will be discharged home later today in the care of their family and follow-up with Dr. Breaux in 10 days for wound check and suture removal if required. They will follow-up with the spa attendant in about 6 weeks for planned activation of the device.
--- NOTE | 2024-05-31 12:04 | RAD REPORT ---
EXAM DESCRIPTION: RAD - Neck Soft Tissue - 05/31/2024 11:36 am CLINICAL HISTORY: s/p inspire COMPARISON: No comparisons FINDINGS: Prevertebral soft tissues are normal in thickness. Wire is seen extending superiorly along the right aspect of neck appearing to terminate in the submental location on the right.No kink or br eak seen.
--- NOTE | 2024-05-31 12:05 | RAD REPORT ---
EXAM DESCRIPTION: RAD - Chest Pa And Lat (2 Views) - 05/31/2024 11:36 am CLINICAL HISTORY: s/p inspire Chest pain. COMPARISON: Chest Single View dated 01/10/2024; Chest Single View dated 07/17/2022; Chest Pa And Lat ( 2 Views) dated 02/18/2022; Chest Single View dated 05/02/2017 FINDINGS: The lungs are clear. The heart is mildly prominent. Right-sided stimulatory device is note d with wiring extending superiorly and anteriorly along the chest wall without kink or break.
[2024-05-31 13:20] VITALS: BP 131/72; TEMP 97; O2SAT 97
== END 2024-05-31 12:40 | disposition home or self-care (01) ==
LOC: OR 06:24
PROVIDERS: ATTEND Otolaryngology
PROC: 0JH63MZ Insertion of Stimulator Generator into Chest Subcutaneous Tissue and Fascia, Percutaneous Approach (ICD-10-PCS; principal; 2024-05-31 07:30)
DX: G47.33 Obstructive sleep apnea (adult) (pediatric) (principal); Z68.31 Body mass index [BMI] 31.0-31.9, adult; Z86.73 Personal history of transient ischemic attack (TIA), and cerebral infarction without residual deficits
CPT/HCPCS: 36415; 70360; 71046; 80048; 85025; 85610; 85730; J0690; J1100; J1170; J2001; J2250; J2405; J2704; J3010; J7120